=== PATIENT | female | born 1955 | race Caucasian/White ===

== ENCOUNTER 2022-07-24 07:10 | Outpatient (CLI) | payer MEDICARE, SELFPAY ==
[2022-07-24 07:31] LABS: Hematocrit 35.3 % (37.0-47.0); Hemoglobin 11.6 g/dL (12.0-15.0)
[2022-07-24 07:48] LABS: Albumin Level 4.1 g/dL (3.5-5.1); Estimated Glomerular Filt Rate > 60
--- NOTE | 2022-07-24 08:24 | ECG_ITS ---
Measurements Intervals [place] Rate: 52 P: 30 MI: 132 QRS: 7 QRSD: 84 T: 40 QT: 483 QTc: 453 Interpretive Statements SINUS BRADYCARDIA BASELINE ARTIFACT- I, II, III, AVR, AVL, AVF BORDERLINE ECG NO PREVIOUS ECG AVAILABLE FOR COMPARISON Electronically Signed On 07-24-2022 9:45:27 CAR ESCORT by Marciano López D.O.
== END 2022-07-24 07:11 | disposition home or self-care (01) ==
LOC: ANHLAB 07:14
PROVIDERS: PCP Family Medicine; Visit Provider Orthopaedic Surgery
DX: M17.12 Unilateral primary osteoarthritis, left knee (principal); Z86.79 Personal history of other diseases of the circulatory system; E03.9 Hypothyroidism, unspecified; Z86.69 Personal history of other diseases of the nervous system and sense organs; R00.1 Bradycardia, unspecified
CPT/HCPCS: 36415; 82040; 82565; 85014; 85018; 93005

== ENCOUNTER 2022-07-31 17:21 | Outpatient (CLI) | payer MEDICARE, SELFPAY ==
--- NOTE | ~2022-07-31 | CT_ITS ---
EXAMINATION: CT LE LT wo con DATE: 07/31/2022 17:53 INDICATION: Left knee osteoarthritis for preoperative planning. TECHNIQUE: High resolution computed tomography (CT) of the left lower extremity from the hip through the ankle was performed without intravenous contrast. Additional sagittal and coronal reconstructions were performed. Automated exposure control and iterative reconstruction technique were employed. The dose-length product was 1755.52 mGy-cm. COMPARISON: None FINDINGS: Mild hallux valgus with mild hypertrophic and cystic change at the medial head of the first metatarsa l consistent with bunion formation. Bone alignment is otherwise normal. No fracture. Tricompartmental osteoarthritis at the left knee with moderate size marginal osteophytes in all 3 compartments. There is moderate joint space narrowing in the medial and patellofemoral compartments although joint space narrowing the medial lateral compartments could be underestimated on nonweightbearing imaging. Intra osseous ganglion cyst at the tibia the posterior aspect of the intercondylar notch near the site of t he footplate of the posterior cruciate ligament and posterior horn of the medial collateral ligament. No left knee joint effusion. Moderate-sized Jacobs's cyst. Small enthesophytes along the proximal and distal poles of the patella. Additional osteoarthritis, mild at the left hip and at multiple joints the mid and forefoot. IMPRESSION: 1. Tricompartmental osteoarthritis of the left knee at least moderate severity in the medial and smyth llofemoral compartments but which could be underestimated on nonweightbearing imaging. Reviewed, dictated and finalized at location A. [facility] IMPRESSION: 1. Tricompartmental osteoarthritis of the left knee at least moderate severity in the medial and patellofemoral compartments but which could be underestimated on nonweightbearing imaging.
== END 2022-07-31 17:22 | disposition home or self-care (01) ==
PROVIDERS: PCP Family Medicine; Visit Provider Orthopaedic Surgery
DX: M17.12 Unilateral primary osteoarthritis, left knee (principal)
CPT/HCPCS: 73700

== ENCOUNTER 2022-08-01 01:26 | Day surgery (SDC) | payer MEDICARE, SELFPAY ==
--- NOTE | 2022-07-30 12:08 | PM.IMHP ---
H&P: HPI History of Present Illness Date/Time: 07/30/22 12:08 Chief Complaint: Left labial abscess Narrative: A 67-year-old female was admitted for removal of left labial abscess. And drained it and it did not improve it has continued to cause her discomfort so she is admitted for removal. Risks and benefits reviewed [facility] Past Medical History Medical History History of hypertension History of sleep apnea Hypothyroidism Surgical History Surgical History History of arthroscopy of left knee (~1974) History of cholecystectomy (~2004) Family History Family History Other Arthritis Carcinoma of colon Pancreatic cancer Skin cancer Social History Social History Smoking status: Never smoker Alcohol intake: current Alcohol use details: 2x/ month Substance use: never Lack of Transportation: No Lack of Food: Never True Current Housing: I Have Housing Concerned About Future Housing: No Difficulty Paying Gas/Electric Bills: No Difficulty Paying for Meds: No Currently Unemployed: No Education: Master's Degree or Higher Difficulty w/ Childcare or Family Care: No Meds Home Medications and Allergies Home Medications Medication Instructions Recorded Confirmed Type bupropion HCl 75 mg tablet 75 mg PO BID 08/07/21 07/23/22 History levothyroxine 13 mcg capsule 13 mcg PO DAILY 08/07/21 07/23/22 History lisinopril 5 mg tablet 5 mg PO DAILY 08/07/21 07/23/22 History metoprolol succinate 25 mg 12.5 mg PO DAILY 08/07/21 07/23/22 History tablet,extended release 24 hr Allergies Allergy/AdvReac Type Severity Reaction Status Date / Time Sulfa (Sulfonamide Allergy Mild unknown Verified 07/23/22 10:25 Antibiotics) Penicillins Allergy Unknown Unknown Verified 07/23/22 10:25 Exam Const: General: cooperative, healthy appearing, comfortable and well groomed Orientation/consciousness: oriented to person, oriented to place and oriented to time HENMT: Head: normal to inspection Resp: Effort & Inspection: normal respiratory effort Cardio: Rate: regular rate Rhythm: regular rhythm Heart sounds: S1 normal heart sound present and S2 normal heart sound present GI: Inspection: normal to inspection Auscultation: normal bowel sounds : External Female Exam: normal external appearance (Left labia with a 1cm abscess) Speculum Exam - Vagina: normal appearance of the vagina Speculum Exam - Cervix: normal appearance of the cervix Bimanual exam- vagina & uterus: normal bimanual exam Assessment and Plan Assessment and plan (1) Labial abscess: Code(s): N76.4 - Abscess of vulva Status: Acute Plan Resection of left labial abscess
--- NOTE | 2022-07-30 13:39 | PC.NURSE ---
Report to the Outpatient Waiting Room, entrance under the green pavilion located off [facility], at time _1115 on date __08/01/22 . Planned Procedure Time: __1315 . Time changes happen often and if your time is changed the preop area will call you the afternoon before. - You and your visitor will be asked to self-screen and do not enter if you have any COVID symptoms. - Only one visitor is requested with a max of two and NO children visitors are allowed at this time. - The patient visitor may be requested to leave or wait in car when not with patient due to distancing restrictions. - A mask is optional within the hospital at this time. Patients may have clear liquids (water, carbonated beverages, clear teas, apple juice) until 3 hours prior to surgery with a maximum of 20 ounces. - No food from midnight until time of surgery - Infants may have breast milk until 4 hours before surgery, formula 6 hours prior to surgery. - Children will be allowed to drink immediately following surgery. If applicable, please bring a bottle or sippy cup to assist with drinking. Juice, water, soda, and popsicles are readily available. For infants on formula, please bring formula the day of surgery. Pacifiers are allowed. Take the following medications with a SIP of water the morning of surgery: ___BUPROPION,LEVOTHYROXINE,METOPROLOL DO NOT STOP ANY OF YOUR OTHER PRESCRIPTION MEDICATIONS PRIOR TO SURGERY ?EXCEPT THE FOLLOWING Medications to discontinue per physician NONE Date to take last dose Please no make-up, nail faroese, hairspray, perfume, deodorant, or body powder the day of surgery. No jewelry (including any body piercings) or valuables the day of surgery, leave them at home. Please take a shower or bath the night before, or the morning of, surgery with an antibacterial soap. Wear comfortable, loose fitting clothing. Children are encouraged to wear pajamas. - Jewelry must be removed prior to entering the operating room. Rings and piercings that are not removed may be cut off. - The hospital will not accept responsibility for valuables. - Please leave all valuables, including medications, at home the day of surgery. If you are going home after surgery, a licensed class b driver must drive you home. - NO public transportation without another adult if you receive anesthesia. - We recommend that an adult stay with you for 24 hours following discharge. - We also recommend that you do not drive, make important decision, drink alcoholic beverages, or take any drugs that were not prescribed by your health care provider for at least 24 hours after your discharge time. For Pediatric surgeries, we recommend two adults accompany the child home. Follow any additional instructions given to you from your surgeon. If you or anyone in your household have experienced Covid symptoms in the past week, please notify your surgeon or the nurse liaison at the phone number below for possible testing. Telephone instructions given to _PATIENT and asked if any additional questions and then verbalized understanding. Patient advised to call surgeon office or pre surgery nurse liaison [phone] if any additional questions.
[2022-07-30 13:45] VITALS: BMI 27.9
[2022-08-01] VITALS (8 sets, daily range): BP systolic 79–129; BP diastolic 46–76; PULSE 40–64; RESP 12–16; TEMP 36.4–36.9; O2SAT 97–100
--- NOTE | 2022-08-01 07:14 | WPDHPUPDATE1 ---
History and Physical Update Update Date/Time: 08/01/22 07:14 History and Physical has been reviewed, including an updated exam of the patient. There are NO changes in the patient's condition. Risks, benefits, and alternatives have been discussed and questions answered. Patient agrees to proceed with procedure.
--- NOTE | 2022-08-01 10:41 | P.PNAN_ITS ---
Anes - Initial Pre Proc Eval Procedure: Operation Date: 08/01/22 12:15 Proposed Procedures p Resection of Labial Abscess - Benito Vasquez MD Date/Time: 08/01/22 10:41 Surgeon: Benito Vasquez MD Pre Op Diagnosis: Left Labial Abcess Patient Data Age: 67 Gender: F Height: 1.65 m Weight: 76.25 kg Allergies Allergy/AdvReac Type Severity Reaction Status Date / Time Sulfa (Sulfonamide Allergy Mild Rash Verified 07/30/22 13:26 Antibiotics) Penicillins Allergy Unknown Rash Verified 07/30/22 13:26 Home Medications Medication Instructions Recorded Confirmed Type bupropion HCl 150 mg 24 hr tablet, 150 mg PO DAILY 07/30/22 07/30/22 History extended release levothyroxine 100 mcg tablet 100 mcg PO DAILY 07/30/22 07/30/22 History lisinopril 20 1 tablet PO DAILY 07/30/22 07/30/22 History mg-hydrochlorothiazide 25 mg tablet metoprolol succinate 50 mg 50 mg PO DAILY 07/30/22 07/30/22 History tablet,extended release 24 hr hydrocodone 5 mg-acetaminophen 325 1 tablet PO Q4H PRN pain #20 tabs 08/01/22 Rx mg tablet Patient hx anesthesia problems: none Family hx anesthesia problems: none Results Review: All pre-operative results and documents have been reviewed as part of the pre- operative evaluation. [facility] Past Medical History Medical History History of hypertension History of sleep apnea Hypothyroidism Surgical History Surgical History History of arthroscopy of left knee (~1974) History of cholecystectomy (~2004) Family History Family History Other Arthritis Carcinoma of colon Pancreatic cancer Skin cancer Social History Social History Smoking status: Never smoker Alcohol intake: current Alcohol use details: ONE DRINK PER MONTH Substance use: never Lack of Transportation: No Lack of Food: Never True Current Housing: I Have Housing Concerned About Future Housing: No Difficulty Paying Gas/Electric Bills: No Difficulty Paying for Meds: No Currently Unemployed: No Education: Master's Degree or Higher Difficulty w/ Childcare or Family Care: No Living arrangements: alone Spiritual care concerns: No Anes - Eval Final PreProcedure Day of Procedure 08/01/22 10:41 Patient weight: normal Heart: regular rate and rhythm Lungs: clear to auscultation Airway: Mallampati scale class II Neurological: alert and oriented Last oral intake: >/= 8 hours ASA classification: II Emergent: no Anesthetic plan: proceed Anesthesia type and monitoring: general LMA and standard monitoring Results Review: All pre-operative results and documents have been reviewed as part of the pre- operative evaluation. Informed Consent: The patient's anesthetic plan and its attendant risks and benefits were discussed with the patient/family/POA. Questions were solicited and answers provided to the satisfaction of the patient/family/POA.
[2022-08-01] MEDS: ACETAMINOPHEN 500 MG TABLET 1000 MG PO (10:55)
[2022-08-01] MEDS: LACTATED RINGERS 1,000 ML 30 ML IV CONT (10:55)
[2022-08-01 11:08] LABS: Anion Gap 3 mmol/L (8-16); Blood Urea Nitrogen 16 mg/dL (7-17); Carbon Dioxide 28 mmol/L (22-30); Chloride 102 mmol/L (98-107); Estimated CRCL calculation 70 ml/min; Estimated Glomerular Filt Rate > 60; Glucose 92 mg/dL (65-110); Potassium 4.2 mmol/L (3.4-5.0); Sodium 133 mmol/L (137-145)
[2022-08-01] MEDS: LIDOCAINE HCL 1% LOCAL INJ 10 ML VIAL INFILTRATE (11:35)
--- NOTE | 2022-08-01 11:45 | W.PM.PROC2 ---
Procedure Note - Detailed Date of Procedure 08/01/22 Pre-op Diagnosis Left Labial Abcess Post-op Diagnosis Same Procedure Performed Resection of left labial abscess Surgeon Benito Vasquez MD Anesthesia General Indications this is a 67-year-old female with a left labial abscess that has been chronically inflamed Findings left labial abscess about a cm in diameter Description of Procedure patient is prepped draped in normal sterile fashion placed in dorsal lithotomy position under excellent elevate Anesthesia the left labial abscess was grasped and 3cc of lidocaine anesthesia placed below. Circumferential incision made this was taken out in full. The sutures were closed with [id number] to 3 0 Vicryl. Blood loss estimated 5cc all sponge, needle, instrument counts were correct. There were no immediate complications Estimated Blood Loss 5 Drains No Packing No Pathology Yes Complications No immediate complications Condition Stable Disposition PACU
== END 2022-08-01 13:55 | disposition home or self-care (01) ==
PROVIDERS: Anesthesiology; PCP Family Medicine; Visit Provider Obstetrics & Gynecology
PROC: (CPT 56405; principal; 2022-08-01 12:15)
DX: N76.4 Abscess of vulva (principal); I10 Essential (primary) hypertension; E03.9 Hypothyroidism, unspecified; G47.30 Sleep apnea, unspecified
CPT/HCPCS: 56405; 36415; 80048; 88304; A9270; J2250; J2405; J2704; J3010; J7120

== ENCOUNTER 2022-10-29 11:40 | Outpatient (CLI) | payer MEDICARE, SELFPAY ==
[2022-10-29 13:04] LABS: Basophils Absolute Auto 0.1 K/mm3 (0.0-0.1); Basophils Percent Auto 0.6 % (0.2-1.2); Eosinophils Absolute Auto 0.2 K/mm3 (0-0.3); Eosinophils Percent Auto 1.8 % (0-4.4); Hematocrit 36.6 % (37.0-47.0); Hemoglobin 11.9 g/dL (12.0-15.0); Immature Granulocyte Absolute 0.03 K/mm3 (0.00-0.031); Immature Granulocyte Percent A 0.3 % (0-0.5); Lymphocytes Absolute Auto 2.28 K/mm3 (0.9-3.2); Lymphocytes Percent Auto 24.1 % (18.3-44.2); Mean Corpuscular HGB Conc 32.5 g/dl (32-36); Mean Corpuscular Hemoglobin 31.3 pg (26-34); Mean Corpuscular Volume 96.3 fl (80-100); Mean Platelet Volume 10.7 fl (7.4-10.4); Neutrophils Percent Auto 63.2 % (45.5-73.1); Platelet Count Result 255 k/mm3 (150-375); Red Cell Distribution Width 12.4 % (11.5-14.5); White Blood Count 9.5 K/mm3 (4.5-10.0)
[2022-10-29 13:59] LABS: Albumin Level 4.4 g/dL (3.5-5.1)
[2022-10-29 14:03] LABS: Anion Gap 6 mmol/L (8-16); Blood Urea Nitrogen 23 mg/dL (7-17); Carbon Dioxide 32 mmol/L (22-30); Chloride 101 mmol/L (98-107); Estimated Glomerular Filt Rate > 60; Glucose 89 mg/dL (65-110); Sodium 139 mmol/L (137-145)
[2022-10-29 14:07] LABS: Hemoglobin A1C 5.3 % (<5.7)
[2022-10-29 14:38] LABS: Urine Cotinine NEGATIVE
== END 2022-10-29 11:41 | disposition home or self-care (01) ==
LOC: ANHSURGERY 11:45
PROVIDERS: Anesthesiology; PCP Family Medicine; Visit Provider Orthopaedic Surgery
DX: M17.12 Unilateral primary osteoarthritis, left knee (principal); Z51.81 Encounter for therapeutic drug level monitoring; Z01.818 Encounter for other preprocedural examination
CPT/HCPCS: 36415; 80048; 80307; 82040; 83036; 85025; 87081

== ENCOUNTER 2022-11-27 00:02 | Day surgery (SDC) | payer MEDICARE, SELFPAY ==
[2022-10-29 11:58] VITALS: BP 142/80; PULSE 46; RESP 16; TEMP 36.7; O2SAT 100; BMI 28.3
--- NOTE | 2022-10-29 12:09 | PC.NURSE ---
Addendum entered by Mikki Mcnally RN 10/29/22 15:07: INSTRUCT PATIENT TO HOLD ALL NSAIDS(IBUPROFEN) 7 DAYS PRE-OP, LAST DOSE 11/21/22. PT RELAYS UNDERSTANDING. Original Note: Report to the Outpatient Waiting Room, entrance under the green pavilion located off [facility], at time __6:00AM on date __11/27/22 . Planned Procedure Time: ___7:30AM . Time changes happen often and if your time is changed the preop area will call you the afternoon before. - You and your visitor will be asked to self-screen and do not enter if you have any COVID symptoms. - A mask is optional within the hospital at this time. Patients may have clear liquids (water, carbonated beverages, clear teas, apple juice) until 3 hours prior to surgery with a maximum of 20 ounces. - No food from midnight until time of surgery Take the following medications with a SIP of water the morning of surgery: ___BUPROPION, LEVOTHYROXINE, METOPROLOL DO NOT STOP ANY OF YOUR OTHER PRESCRIPTION MEDICATIONS PRIOR TO SURGERY ?EXCEPT THE FOLLOWING Medications to discontinue per physician ____HOLD ALL VITAMINS/SUPPLEMENTS 3 DAYS PRE-OP Date to take last dose___11/23/22 Please no make-up, nail german, hairspray, perfume, deodorant, or body powder the day of surgery. No jewelry (including any body piercings) or valuables the day of surgery, leave them at home. Please take a shower or bath the night before, or the morning of, surgery with an antibacterial soap. Wear comfortable, loose fitting clothing. Children are encouraged to wear pajamas. - Jewelry must be removed prior to entering the operating room. Rings and piercings that are not removed may be cut off. - The hospital will not accept responsibility for valuables. - Please leave all valuables, including medications, at home the day of surgery. If you are going home after surgery, a licensed driver salesman must drive you home. - NO public transportation without another adult if you receive anesthesia. - We recommend that an adult stay with you for 24 hours following discharge. - We also recommend that you do not drive, make important decision, drink alcoholic beverages, or take any drugs that were not prescribed by your health care provider for at least 24 hours after your discharge time. Follow any additional instructions given to you from your surgeon. If you or anyone in your household have experienced Covid symptoms in the past week, please notify your surgeon or the nurse liaison at the phone number below for possible testing. Telephone instructions given to __PATIENT and asked if any additional questions and then verbalized understanding. Patient advised to call surgeon office or pre surgery nurse liaison [phone] if any additional questions.
--- NOTE | 2022-11-26 12:55 | WPDANESEPPF ---
Anes - Initial Pre Proc Eval Procedure: Operation Date: 11/27/22 07:30 Proposed Procedures p Left Custom Total Knee Arthroplasty - Joni Guzman MD Date/Time: 11/26/22 12:55 Surgeon: Joni Guzman MD Pre Op Diagnosis: primary oa left knee Patient Data Age: 67 Gender: F Height: 1.64 m Weight: 76.6 kg Last Vital Signs Temp 36.7 C 10/29/22 11:58 Pulse 46 L 10/29/22 11:58 Resp 16 10/29/22 11:58 BP 142/80 H 10/29/22 11:58 Pulse Ox 100 10/29/22 11:58 O2 Del Method Room Air 10/29/22 11:58 Allergies Allergy/AdvReac Type Severity Reaction Status Date / Time Sulfa (Sulfonamide Allergy Mild Rash Verified 11/27/22 06:21 Antibiotics) Penicillins Allergy Unknown Rash Verified 11/27/22 06:21 cephalexin [From Keflex] Allergy RASH, RED Verified 11/27/22 06:21 FACE Home Medications Medication Instructions Recorded Confirmed Type bupropion HCl 150 mg 24 hr tablet, 150 mg PO QAM 07/30/22 11/27/22 History extended release levothyroxine 100 mcg tablet 100 mcg PO QAM 07/30/22 11/27/22 History lisinopril 20 1 tablet PO QAM 07/30/22 11/27/22 History mg-hydrochlorothiazide 25 mg tablet metoprolol succinate 50 mg 50 mg PO QAM 07/30/22 11/27/22 History tablet,extended release 24 hr acetaminophen 500 mg tablet 1,000 mg PO Q6H PRN Pain 10/29/22 11/27/22 History docusate sodium 100 mg capsule 200 mg PO DAILY PRN Constipation 10/29/22 11/27/22 History ferrous sulfate 142 mg (45 mg 142 mg PO DAILY 10/29/22 11/27/22 History iron) tablet,extended release (Slow Fe) ibuprofen 200 mg capsule 400 mg PO Q6H PRN Pain 10/29/22 11/27/22 History multivitamin 1 tablet PO DAILY 10/29/22 11/27/22 History Patient hx anesthesia problems: none Family hx anesthesia problems: none Results Review: All pre-operative results and documents have been reviewed as part of the pre-operative evaluation. [facility] Past Medical History Medical History (Updated 10/29/22 @ 09:01 by Cely Wiley) Depression Hypertension Hypothyroidism Multinodular goiter Obstructive sleep apnea Primary osteoarthritis of left knee Sore throat Surgical History Surgical History History of arthroscopy of left knee History of arthroscopy of right knee (~10/2014) History of cholecystectomy (04/2013) Family History Family History Other Arthritis Carcinoma of colon Pancreatic cancer Skin cancer Social History Social History Smoking status: Never smoker Alcohol intake: current Drinks per week: 2 Alcohol use details: ONE DRINK PER MONTH Substance use: never Lack of Transportation: No Lack of Food: Never True Current Housing: I Have Housing Concerned About Future Housing: No Difficulty Paying Gas/Electric Bills: No Difficulty Paying for Meds: No Currently Unemployed: No Education: Master's Degree or Higher Difficulty w/ Childcare or Family Care: No Living arrangements: alone Gender identity (if verbalized by the patient): Female Sexual Orientation (if Verbalized by the Patient): Straight or Heterosexual Spiritual care concerns: No Anes - Eval Final PreProcedure Day of Procedure 11/26/22 12:55 Patient weight: overweight Heart: regular rate and rhythm Lungs: clear to auscultation Airway: Mallampati scale class II Neurological: alert and oriented Last oral intake: >/= 8 hours ASA classification: III Emergent: no Anesthetic plan: proceed Anesthesia type and monitoring: general LMA and standard monitoring Results Review: All pre-operative results and documents have been reviewed as part of the pre-operative evaluation. Informed Consent: The patient's anesthetic plan and its attendant risks and benefits were discussed with the patient/family/POA. Questions were solicited and answers provided
[2022-11-27] VITALS (13 sets, daily range): BP systolic 108–151; BP diastolic 54–85; PULSE 50–83; RESP 12–20; TEMP 36.4–37; O2SAT 95–100
--- NOTE | ~2022-11-27 | XR_ITS ---
EXAMINATION: [id number] DATE: 11/27/2022 10:28 INDICATION: Left knee arthroplasty. Postop. TECHNIQUE: 2 views of left knee were obtained. COMPARISON: None. FINDINGS: There is a total left knee arthroplasty with patellar resurfacing in near-anatomic alignmen t. No fracture. There is gas in the knee joint and soft tissues, consistent with recent surgery. IMPRESSION: 1. Total left knee arthroplasty in near-anatomic alignment. Reviewed, dictated and finalized at location A.
[2022-11-27] MEDS: ACETAMINOPHEN 500 MG TABLET 1000 MG PO (06:27)
[2022-11-27] MEDS: LACTATED RINGERS 1,000 ML 30 ML IV CONT ×2 (06:36→10:07)
[2022-11-27] MEDS: TRANEXAMIC ACID 1,000MG/ISO100 1,000 MG/100 ML BAG 200 MG IVPB (07:03)
--- NOTE | 2022-11-27 07:15 | WPDHPUPDATE1 ---
History and Physical Update Update Date/Time: 11/27/22 07:15 History and Physical has been reviewed, including an updated exam of the patient. There are NO changes in the patient's condition. Risks, benefits, and alternatives have been discussed and questions answered. Patient agrees to proceed with procedure.
--- NOTE | 2022-11-27 07:32 | WPDANESPNB ---
Anes - Peripheral Nerve Block Date/Time: 11/27/22 07:32 I have discussed with the patient/family/POA the placement of a peripheral nerve block for post-operative pain management, including associated risks, benefits, complications, and side effects. Alternative methods of post-operative analgesia were detailed. Questions were solicited and answers provided to the satisfaction of the patient/family/POA. Time-Out: A pre-procedural Time-Out was completed immediately before starting the procedure and confirmed: Patient Identification, Site, Procedure, Patient Position and the Availability of Requisite Equipment. Clinical Indications: Acute post-operative pain management requested by the operative surgeon. Nerve Block Insertion Note Anes-nerve block: adductor canal left Patient position: supine Skin prep: chlorhexidine Needle: 22 gauge, stimulating, insulated echogenic needle. Needle length: 80 mm Technique: ultrasound Injectate: bupivacaine 0.5% with epi 5 mcg/ml (30cc - no epi) Observations: tolerated well Complications: none Procedure start time:: 723 Procedure end time:: 728
[2022-11-27] MEDS: CLINDAMYCIN 900 MG/D5W 50 ML 900 MG/50 ML PIGGYBACK 50 MG IVPB (07:36)
[2022-11-27] MEDS: GENTAMICIN BONE CEMENT REFOBACIN 1 EACH TOPICAL (08:18)
--- NOTE | 2022-11-27 10:55 | P.OP_ITS ---
Procedure Note - Detailed Date of Procedure 11/27/22 Pre-op Diagnosis primary oa left knee Post-op Diagnosis Same Procedure Performed Total knee arthroplasty, left knee. Surgeon Joni Guzman MD Anesthesia General and Regional (Subsartorial block.) Description of Procedure Preoperative antibiotics were given. The limb was prepped and draped in the usual sterile fashion with a well-padded tourniquet high on the thigh. The limb was exsanguinated and the tourniquet inflated to 300 mmHg. A longitudinal i ncision was created just medial to the patella. A trivector approach to the knee was performed. Arthrotomy was taken down through the joint capsule. No significant releases were initially taken. The femur was exposed and the F1 jig was applied. The coring tool was used to remove the cartilage for the F2 jig to sit flush with the bone. The jig was pinned and the distal cut carefully taken. Caliper measurements confirmed appropriate bony resections according to the preoperative templated plan. The F4 cutting jig for the femur was applied, at the standard rotation. The AP and anterior chamfer cuts were taken. The F5 jig was applied and the posterior chamfer cuts were taken. The tibia was prepared using the T1 jig, after removing cartilage for the jig contact points. Proper alignment was checked with the alignment gonzales. The tibia was cut using the T1u guide. Gap balancing was performed. Gap measurements were taken and the knee was trialed. Excellent alignment and soft tissue balancing was confirmed. The posterior cruciate ligament was recessed along the proximal tibia. The patella was cut for resurfacing. Three lug holes were drilled. Meniscal remnants were removed. The trial components were assembled. Excellent range of motion and proper soft tissue balancing were confirmed throughout the full range of motion. Patellar tracking was excellent. The knee was copiously irrigated periodically throughout the procedure. The real implants were cemented into position. Excess cement was carefully removed. The wound was closed in layers with interrupted #1 Vicryl suture, #2 strata fix suture, 2-0 strata fix suture, 3-0 strata fix suture. Steri-Strips placed on the skin with the knee flexed. Sterile bulky dressing applied. The patient was brought to the recovery room in stable condition. There were no complications. Implants [employer]form[employer] Im[employer] total knee arthroplasty. Cemented. Cruciate retaining. 6 mm in sert. 35 mm round patella. Estimated Blood Loss -50.0 Tourniquet Time 84 Drains No Complications No immediate complications Condition Stable Disposition PACU [facility] Billing Surgery - Charge Forward: Surgery Billing
--- NOTE | 2022-11-27 11:49 | ADMGEN ---
This patient, Anirudh Castro, was admitted to Medical Room 252-01. Patient/family oriented to hospital policies and general routines including ID bracelet, bed and alarms, visiting hours, pain management, procedures, bathroom and other care routines, personal items, smoking policy, room service/diet, and visiting hours. Information on how to activate the Rapid Response Team has been discussed. Patient/Family are encouraged to report perceived risks to care and to ask questions if they do not understand what they are told or what they should do.
[2022-11-27] MEDS: SODIUM CHLORIDE 0.9% IV 1,000 ML 125 ML IV CONT (13:34)
[2022-11-27] MEDS: lisinopriL 20 MG TABLET PO (13:35)
[2022-11-27] MEDS: hydroCHLOROthiazide 25 MG TABLET PO (13:35)
--- NOTE | 2022-11-27 16:39 | PCPTNOTE ---
On 11/27/22, the student, [Ifrah Roberts], provided care and completed [facility]. I have reviewed the student's documentation and agree with the findings.
[2022-11-27] MEDS: BENZOCAINE/MENTHOL (*BKC) 18 EA LOZENGE 1 LOZENGE PO (16:59)
[2022-11-27] MEDS: ASPIRIN 81 MG ENTERIC TABLET PO (17:02)
[2022-11-27] MEDS: MELOXICAM 7.5 MG TABLET PO (17:02)
[2022-11-27] MEDS: CLINDAMYCIN 600 MG/D5W 50 ML 600 MG/50 ML PIGGYBACK 100 MG IVPB ×2 (17:03→23:17)
[2022-11-27] MEDS: SENNA/DOCUSATE SODIUM TABLET 2 TAB PO (17:04)
[2022-11-27] MEDS: oxyCODONE HCL (*CRX) 5 MG TAB IR PO (20:30)
[2022-11-28 00:18] VITALS: BP 113/53; PULSE 50; RESP 18; TEMP 35.9; O2SAT 100
[2022-11-28 03:00] VITALS: PULSE 55; RESP 15; O2SAT 97
[2022-11-28 04:48] VITALS: BP 109/53; PULSE 54; RESP 20; TEMP 36.6; O2SAT 100
[2022-11-28] MEDS: oxyCODONE HCL (*CRX) 5 MG TAB IR PO (05:04)
[2022-11-28 05:17] LABS: Basophils Percent Auto 0.3 % (0.2-1.2); Eosinophils Percent Auto 0.1 % (0-4.4); Hematocrit 30.8 % (37.0-47.0); Hemoglobin 10.1 g/dL (12.0-15.0); Immature Granulocyte Absolute 0.09 K/mm3 (0.00-0.031); Immature Granulocyte Percent A 0.6 % (0-0.5); Lymphocytes Absolute Auto 2.19 K/mm3 (0.9-3.2); Lymphocytes Percent Auto 14.1 % (18.3-44.2); Mean Corpuscular HGB Conc 32.8 g/dl (32-36); Mean Corpuscular Hemoglobin 31.8 pg (26-34); Mean Corpuscular Volume 96.9 fl (80-100); Mean Platelet Volume 10.6 fl (7.4-10.4); Monocytes Absolute Auto 1.7 K/mm3 (0.1-0.6); Neutrophils Absolute Auto 11.5 K/mm3 (1.3-6.7); Neutrophils Percent Auto 73.9 % (45.5-73.1); Platelet Count Result 218 k/mm3 (150-375); Red Blood Count 3.18 M/mm3 (4.2-5.4); Red Cell Distribution Width 12.7 % (11.5-14.5); White Blood Count 15.5 K/mm3 (4.5-10.0)
[2022-11-28 05:28] LABS: Anion Gap 5 mmol/L (8-16); Blood Urea Nitrogen 26 mg/dL (7-17); Calcium 8.6 mg/dL (8.4-10.2); Carbon Dioxide 31 mmol/L (22-30); Chloride 98 mmol/L (98-107); Estimated CRCL calculation 55 ml/min; Estimated Glomerular Filt Rate > 60; Glucose 98 mg/dL (65-110); Potassium 4.1 mmol/L (3.4-5.0); Sodium 134 mmol/L (137-145)
[2022-11-28] MEDS: LEVOTHYROXINE SODIUM 100 MCG TABLET PO (06:18)
[2022-11-28] MEDS: ASPIRIN 81 MG ENTERIC TABLET PO (08:04)
[2022-11-28] MEDS: SENNA/DOCUSATE SODIUM TABLET 2 TAB PO (08:04)
[2022-11-28] MEDS: MELOXICAM 7.5 MG TABLET PO (08:04)
[2022-11-28] MEDS: predniSONE 5 MG TABLET PO (08:04)
[2022-11-28] MEDS: FERROUS SULFATE DRIED 142 MG TABCR PO (08:04)
[2022-11-28] MEDS: buPROPion HCL XL (24 HR) 150 MG TABCR PO (08:04)
[2022-11-28] MEDS: lisinopriL 20 MG TABLET PO (08:04)
[2022-11-28] MEDS: hydroCHLOROthiazide 25 MG TABLET PO (08:04)
[2022-11-28 08:05] VITALS: PULSE 75
[2022-11-28] MEDS: METOPROLOL SUCCINATE EXT REL 50 MG TABCR PO (08:05)
[2022-11-28] MEDS: MULTIVITAMINS THERAPEUTIC TAB (*BKC) 1 TABLET PO (08:05)
[2022-11-28] MEDS: CLINDAMYCIN 600 MG/D5W 50 ML 600 MG/50 ML PIGGYBACK 100 MG IVPB (08:06)
[2022-11-28] MEDS: polyethylene glycoL 3350 17 GM POWD.PACK PO (08:06)
--- NOTE | 2022-11-28 09:08 | P.PNAN_ITS ---
Anes - Prog Note Post-Op Date/Time: 11/28/22 09:08 Cardiovascular status: normal Respiratory status: normal Airway patency: baseline Mental status: baseline Post-Op hydration status: normal Vital Signs: Last Vital Signs Temp 97.8 F 11/28/22 04:48 Pulse 75 11/28/22 08:05 Resp 20 11/28/22 04:48 BP 109/53 L 11/28/22 04:48 Pulse Ox 100 11/28/22 04:48 O2 Del Method Autopap 11/28/22 03:00 O2 Flow Rate 8 11/27/22 10:20 Pain Score (VAS): 0/10 I/O: Intake & Output 11/27/22 11/28/22 11/28/22 23:59 07:59 15:59 Intake Total 340 Balance 340 Laboratory Tests 11/28/22 05:09 11/28/22 05:09 11/28/22 05:09 WBC 15.5 H RBC 3.18 L Hgb 10.1 L Hct 30.8 L MCV 96.9 MCH 31.8 MCHC 32.8 RDW 12.7 Plt Count 218 MPV 10.6 H Immature Gran % (Auto) 0.6 H Neut % (Auto) 73.9 H Lymph % (Auto) 14.1 L [place] % (Auto) 11.0 H Eos % (Auto) 0.1 Baso % (Auto) 0.3 Lymph # (Auto) 2.19 [place] # (Auto) 1.7 H Eos # (Auto) 0.0 Baso # (Auto) 0.0 Abs Immat Gran (auto) 0.09 H Absolute Neuts (auto) 11.5 H Absolute Nucleated RBC 0.0 Nucleated RBC % 0.0 Sodium 134 L Potassium 4.1 Chloride 98 Carbon Dioxide 31 H Anion Gap 5 L BUN 26 H Creatinine 0.90 Estim Creat Clear Calc 55 Estimated GFR > 60 Glucose 98 Calcium 8.6 Post-procedural complaints: none Patient Feedback: Patient satisfied with anesthetic care.
[2022-11-28] MEDS: oxyCODONE HCL (*CRX) 5 MG TAB IR 10 MG PO ×2 (09:41→13:35)
--- NOTE | 2022-11-28 10:12 | PM.DS ---
DS: Admitting Diagnosis Discharge Date 11/28/22 Admitting Diagnosis Left knee arthritis. DS: Discharge Diagnosis Discharge Diagnosis (1) Status post total knee replacement, left: Code(s): Z96.652 - Presence of left artificial knee joint Status: Acute DS: Summary Hospital Course Reason for hospitalization: Total knee arthroplasty. Hospital Course: Tolerated surgery well. Progressed appropriately with therapy. Status at Discharge Functional status at discharge: uses cane/walker Overall status at discharge: patient is progressing back to baseline Time Spent with Patient Time attestation: Total time spent providing and/or coordinating discharge services: Exam Const: General: no acute distress Resp: Effort & Inspection: normal respiratory effort Skin: Other: Wound healing well. Mepilex dressing intact. No hematoma or drainage. Neuro: Motor exam (neuro): 5/5 motor strength present throughout Sensory Exam: normal sensation Psych: Mental Status: mental status grossly normal Speech and movement: Normal speech and movement present DS: Data Data Completed and Pending Labs on day of discharge: Labs from last 24 hours 11/28/22 05:09 WBC 15.5 H RBC 3.18 L Hgb 10.1 L Hct 30.8 L MCV 96.9 MCH 31.8 MCHC 32.8 RDW 12.7 Plt Count 218 MPV 10.6 H Immature Gran % (Auto) 0.6 H Neut % (Auto) 73.9 H Lymph % (Auto) 14.1 L [place] % (Auto) 11.0 H Eos % (Auto) 0.1 Baso % (Auto) 0.3 Lymph # (Auto) 2.19 [place] # (Auto) 1.7 H Eos # (Auto) 0.0 Baso # (Auto) 0.0 Abs Immat Gran (auto) 0.09 H Absolute Neuts (auto) 11.5 H Absolute Nucleated RBC 0.0 Nucleated RBC % 0.0 Sodium 134 L Potassium 4.1 Chloride 98 Carbon Dioxide 31 H Anion Gap 5 L BUN 26 H Creatinine 0.90 Estim Creat Clear Calc 55 Estimated GFR > 60 Glucose 98 Calcium 8.6 Discharge Plan Discharge Patient Disposition: Home, Self-Care Discharge Instructions: See instruction sheet. Stand Alone Forms: General Discharge Instructions Follow-up/Referrals: Joni Guzman MD [Physician] - Discharge Medications: New aspirin [Enteric Coated Aspirin] 81 mg tablet,delayed release (DR/EC) 81 mg PO DAILY Qty: 28 0RF meloxicam 7.5 mg tablet 7.5 mg PO .twice daily Qty: 60 0RF oxycodone-acetaminophen 5-325 mg tablet 1 - 2 tablet PO Q6H MDD 6 tablets PRN (Reason: pain) Qty: 30 0RF prednisone 5 mg tablet 5 mg PO DAILY Qty: 10 0RF Continued multivitamin Tablet 1 tablet PO DAILY lisinopril-hydrochlorothiazide 20-25 mg tablet 1 tablet PO QAM metoprolol succinate 50 mg tablet extended release 24 hr 50 mg PO QAM bupropion HCl 150 mg tablet extended release 24 hr 150 mg PO QAM levothyroxine 100 mcg tablet 100 mcg PO QAM docusate sodium 100 mg Capsule 200 mg PO DAILY PRN (Reason: Constipation) Slow Fe 142 mg (45 mg iron) Tablet Extended Release 142 mg PO DAILY acetaminophen 500 mg Tablet 1,000 mg PO Q6H PRN (Reason: Pain) Discontinued ibuprofen 200 mg Capsule 400 mg PO Q6H PRN (Reason: Pain) Quality VTE Prophylaxis VTE prophylaxis: mechanical ordered (ELLE sethi and Karly)
[2022-11-28 10:15] VITALS: BP 118/58; PULSE 65; RESP 16; TEMP 37.3; O2SAT 100
--- NOTE | 2022-11-28 12:14 | PCCCNOTE ---
On 11/28/22, the student, [Guillermina Barajas ], provided care and completed [facility] documentation on this patient. I have reviewed the student's documentation and agree with the findings.
== END 2022-11-28 13:48 | disposition home or self-care (01) ==
LOC: ANHSURGERY 06:03 → ANH2MED 11:41
PROVIDERS: PCP Family Medicine; Visit Provider Orthopaedic Surgery
PROC: (CPT 27447; principal; 2022-11-27 07:30)
DX: M17.12 Unilateral primary osteoarthritis, left knee (principal); G89.18 Other acute postprocedural pain; I10 Essential (primary) hypertension; E03.9 Hypothyroidism, unspecified; G47.33 Obstructive sleep apnea (adult) (pediatric); F32.A Depression, unspecified
CPT/HCPCS: 27447; 64447; 36415; 73560; 80048; 85025; 86850; 86900; 86901; 97110; 97116; 97161; 97165; 97530; 97535; A9270; C1713; C1776; J0171; J1100; J1170; J1885; J2250; J2270; J2371; J2405; J2704; J2795; J3010; J3370; J7030; J7120; J7512

== ENCOUNTER 2023-03-17 07:00 | Outpatient (CLI) | payer MEDICARE, SELFPAY ==
[2023-03-17 07:32] LABS: Hematocrit 37.4 % (37.0-47.0)
[2023-03-17 07:44] LABS: Anion Gap 4 mmol/L (8-16); Blood Urea Nitrogen 22 mg/dL (7-17); Calcium 9.2 mg/dL (8.4-10.2); Carbon Dioxide 33 mmol/L (22-30); Chloride 101 mmol/L (98-107); Estimated Glomerular Filt Rate > 60; Glucose 92 mg/dL (65-110); Potassium 4.4 mmol/L (3.4-5.0); Sodium 138 mmol/L (137-145)
== END 2023-03-17 07:01 | disposition home or self-care (01) ==
LOC: ANHSURGERY 07:06
PROVIDERS: Anesthesiology; PCP Family Medicine; Visit Provider Obstetrics & Gynecology
DX: D64.9 Anemia, unspecified (principal); Z79.899 Other long term (current) drug therapy; Z01.818 Encounter for other preprocedural examination
CPT/HCPCS: 36415; 80048; 85014; 85018

== ENCOUNTER 2023-03-20 01:43 | Day surgery (SDC) | payer MEDICARE, SELFPAY ==
[2023-03-16 14:14] VITALS: BMI 25.8
--- NOTE | 2023-03-16 14:20 | PC.NURSE ---
Report to the Outpatient Waiting Room, entrance under the green pavilion located off [facility], at time _1130_ on date _[id number]_. Planned Procedure Time: _130pm_. Time changes happen often and if your time is changed the preop area will call you the afternoon before. - You and your visitor will be asked to self-screen and do not enter if you have any COVID symptoms. - A mask is optional within the hospital at this time. Patients may have clear liquids (water, carbonated beverages, clear teas, apple juice) until 3 hours prior to surgery with a maximum of 20 ounces. - No food from midnight until time of surgery Take the following medications with a SIP of water the morning of surgery: ___Bupropion, Levothyroxine and Metoprolol DO NOT STOP ANY OF YOUR OTHER PRESCRIPTION MEDICATIONS PRIOR TO SURGERY ?EXCEPT THE FOLLOWING Medications to discontinue per physician Multivitamin and Iron Date to take last dose__Stop today till after surgery. Please no make-up, nail welsh, hairspray, perfume, deodorant, or body powder the day of surgery. No jewelry (including any body piercings) or valuables the day of surgery, leave them at home. Please take a shower or bath the night before, or the morning of, surgery with an antibacterial soap. Wear comfortable, loose fitting clothing. - Jewelry must be removed prior to entering the operating room. Rings and piercings that are not removed may be cut off. - The hospital will not accept responsibility for valuables. - Please leave all valuables, including medications, at home the day of surgery. If you are going home after surgery, a licensed cab driver must drive you home. - NO public transportation without another adult if you receive anesthesia. - We recommend that an adult stay with you for 24 hours following discharge. - We also recommend that you do not drive, make important decision, drink alcoholic beverages, or take any drugs that were not prescribed by your health care provider for at least 24 hours after your discharge time. Follow any additional instructions given to you from your surgeon. If you or anyone in your household have experienced Covid symptoms in the past week, please notify your surgeon or the nurse liaison at the phone number below for possible testing. Telephone instructions given to _Nathanno_and asked if any additional questions and then verbalized understanding. Patient advised to call surgeon office or pre surgery nurse liaison [phone] if any additional questions.
--- NOTE | 2023-03-18 12:43 | PM.IMHP ---
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 She has been treated with antibiotics is now sterile and she will undergo drainage and possible marsupialization PMFSH Past Medical History Medical History Depression Hypertension Hypothyroidism Multinodular goiter Obstructive sleep apnea Primary osteoarthritis of left knee Sore throat Surgical History Surgical History History of arthroscopy of left knee History of arthroscopy of right knee (~10/2014) History of cholecystectomy (04/2013) Status post total knee replacement, left (~11/27/22) Family History Family History Other Arthritis Carcinoma of colon Pancreatic cancer Skin cancer Social History Social History Smoking status: Never smoker Alcohol intake: current Drinks per week: 2 Alcohol use details: ONE DRINK PER MONTH Substance use: never Lack of Transportation: No Lack of Food: Never True Current Housing: I Have Housing Concerned About Future Housing: No Difficulty Paying Gas/Electric Bills: No Difficulty Paying for Meds: No Currently Unemployed: No Education: Master's Degree or Higher Difficulty w/ Childcare or Family Care: No Living arrangements: with family Gender identity (if verbalized by the patient): Female Sexual Orientation (if Verbalized by the Patient): Straight or Heterosexual Spiritual care concerns: No Meds Home Medications and Allergies Home Medications Medication Instructions Recorded Confirmed Type bupropion HCl 150 mg 24 hr tablet, 150 mg PO QAM 07/30/22 03/16/23 History extended release levothyroxine 100 mcg tablet 100 mcg PO QAM 07/30/22 03/16/23 History lisinopril 20 1 tablet PO QAM 07/30/22 03/16/23 History mg-hydrochlorothiazide 25 mg tablet metoprolol succinate 50 mg 50 mg PO QAM 07/30/22 03/16/23 History tablet,extended release 24 hr acetaminophen 500 mg tablet 1,000 mg PO Q6H PRN Pain 10/29/22 03/16/23 History docusate sodium 100 mg capsule 200 mg PO DAILY PRN Constipation 10/29/22 03/16/23 History ferrous sulfate 142 mg (45 mg 142 mg PO DAILY 10/29/22 03/16/23 History iron) tablet,extended release (Slow Fe) multivitamin 1 tablet PO DAILY 10/29/22 03/16/23 History Allergies Allergy/AdvReac Type Severity Reaction Status Date / Time cephalexin [From Keflex] Allergy Severe RASH, RED Verified 03/16/23 14:11 FACE Sulfa (Sulfonamide Allergy Mild Rash Verified 03/16/23 14:11 Antibiotics) Penicillins Allergy Unknown Rash Verified 03/16/23 14:11 Exam Const: General: cooperative, healthy appearing and comfortable Nutritional Appearance: average body habitus Orientation/consciousness: oriented to person, oriented to place and oriented to time Resp: Effort & Inspection: normal respiratory effort Cardio: Rate: regular rate Rhythm: regular rhythm Heart sounds: S1 normal heart sound present and S2 normal heart sound present GI: Inspection: normal to inspection : External Female Exam: normal external appearance (Moderate sized Bartholin cyst on the left) Speculum Exam - Vagina: normal appearance of the vagina Speculum Exam - Cervix: normal appearance of the cervix Bimanual exam- vagina & uterus: uterine size normal Bimanual Exam- Adnexa, other: normal adnexae Assessment and Plan Assessment and plan (1) Bartholin cyst: Code(s): N75.0 - Cyst of Bartholin's gland Status: Acute Plan Excision and possible marsupialization of Bartholin cyst
[2023-03-20] VITALS (8 sets, daily range): BP systolic 92–144; BP diastolic 58–78; PULSE 48–77; RESP 13–17; TEMP 36.6–36.7; O2SAT 99–100; BMI 25.4
--- NOTE | 2023-03-20 06:18 | WPDHPUPDATE1 ---
History and Physical Update Update Date/Time: 03/20/23 06:18 History and Physical has been reviewed, including an updated exam of the patient. There are NO changes in the patient's condition. Risks, benefits, and alternatives have been discussed and questions answered. Patient agrees to proceed with procedure.
[2023-03-20] MEDS: LACTATED RINGERS 1,000 ML 30 ML IV CONT (12:05)
--- NOTE | 2023-03-20 12:10 | WPDANESEPPF ---
Anes - Initial Pre Proc Eval Procedure: Operation Date: 03/20/23 13:30 Proposed Procedures p Marsupialization Bartholin's Left Gland Cyst - Benito Vasquez MD Date/Time: 03/20/23 12:10 Surgeon: Benito Vasquez MD Pre Op Diagnosis: bartholin cyst Patient Data Age: 68 Gender: F Height: 1.68 m Weight: 71.6 kg Allergies Allergy/AdvReac Type Severity Reaction Status Date / Time cephalexin [From Keflex] Allergy Severe RASH, RED Verified 03/16/23 14:11 FACE Sulfa (Sulfonamide Allergy Mild Rash Verified 03/16/23 14:11 Antibiotics) Penicillins Allergy Unknown Rash Verified 03/16/23 14:11 Home Medications Medication Instructions Recorded Confirmed Type bupropion HCl 150 mg 24 hr tablet, 150 mg PO QAM 07/30/22 03/16/23 History extended release levothyroxine 100 mcg tablet 100 mcg PO QAM 07/30/22 03/16/23 History lisinopril 20 1 tablet PO QAM 07/30/22 03/16/23 History mg-hydrochlorothiazide 25 mg tablet metoprolol succinate 50 mg 50 mg PO QAM 07/30/22 03/16/23 History tablet,extended release 24 hr acetaminophen 500 mg tablet 1,000 mg PO Q6H PRN Pain 10/29/22 03/16/23 History docusate sodium 100 mg capsule 200 mg PO DAILY PRN Constipation 10/29/22 03/16/23 History ferrous sulfate 142 mg (45 mg 142 mg PO DAILY 10/29/22 03/16/23 History iron) tablet,extended release (Slow Fe) multivitamin 1 tablet PO DAILY 10/29/22 03/16/23 History hydrocodone 5 mg-acetaminophen 325 1 tablet PO Q4H PRN pain #14 tabs 03/20/23 Rx mg tablet Patient hx anesthesia problems: none Family hx anesthesia problems: none Results Review: All pre-operative results and documents have been reviewed as part of the pre-operative evaluation. [facility] Past Medical History Medical History Depression Hypertension Hypothyroidism Multinodular goiter Obstructive sleep apnea Primary osteoarthritis of left knee Sore throat Surgical History Surgical History History of arthroscopy of left knee History of arthroscopy of right knee (~10/2014) History of cholecystectomy (04/2013) Status post total knee replacement, left (~11/27/22) Family History Family History Other Arthritis Carcinoma of colon Pancreatic cancer Skin cancer Social History Social History Smoking status: Never smoker Alcohol intake: current Drinks per week: 2 Alcohol use details: ONE DRINK PER MONTH Substance use: never Lack of Transportation: No Lack of Food: Never True Current Housing: I Have Housing Concerned About Future Housing: No Difficulty Paying Gas/Electric Bills: No Difficulty Paying for Meds: No Currently Unemployed: No Education: Master's Degree or Higher Difficulty w/ Childcare or Family Care: No Living arrangements: with family Gender identity (if verbalized by the patient): Female Sexual Orientation (if Verbalized by the Patient): Straight or Heterosexual Spiritual care concerns: No Anes - Eval Final PreProcedure Day of Procedure 03/20/23 12:10 Patient weight: normal Heart: regular rate and rhythm Lungs: clear to auscultation Airway: Mallampati scale class II Neurological: alert and oriented Last oral intake: >/= 8 hours ASA classification: III Emergent: no Anesthetic plan: proceed Anesthesia type and monitoring: general LMA and standard monitoring Results Review: All pre-operative results and documents have been reviewed as part of the pre-operative evaluation. Informed Consent: The patient's anesthetic plan and its attendant risks and benefits were discussed with the patient/family/POA. Questions were solicited and answers provided to the satisfaction of the patient/family/POA.
[2023-03-20] MEDS: CLINDAMYCIN 900 MG/D5W 50 ML 900 MG/50 ML PIGGYBACK 50 MG IVPB (14:16)
[2023-03-20] MEDS: GENTAMICIN 80MG/SOD CHL 50 ML 80 MG/50 ML BAG 100 MG IVPB (14:16)
--- NOTE | 2023-03-20 14:54 | W.PM.PROC2 ---
Procedure Note - Detailed Date of Procedure 03/20/23 Pre-op Diagnosis bartholin cyst Post-op Diagnosis Same Procedure Performed Removal of Bartholin's cyst Surgeon Benito Vasquez MD Anesthesia General Indications This is a 68-year-old female with a left recurrent Bartholin abscess Findings Very small left Bartholin abscess. Description of Procedure Patient was prepped draped in the normal sterile fashion placed in the dorsal lithotomy position. Under excellent general anesthesia weighted speculum placed in posterior fornix vagina. Porcelain cyst was seen and this was opened inside the vagina in linear fashion. It was sharply dissected until the gland was removed without difficulty. The vagina was then closed with continuous running 0 Vicryl she tolerated the procedure well blood loss was 5cc there were no immediate complications Estimated Blood Loss 5 Drains No Packing No Pathology Yes Complications No immediate complications Condition Stable Disposition PACU
[2023-03-20] MEDS: oxyCODONE HCL (*CRX) 5 MG TAB IR PO (15:58)
== END 2023-03-20 16:24 | disposition home or self-care (01) ==
PROVIDERS: PCP Family Medicine; Visit Provider Obstetrics & Gynecology
PROC: (CPT 56440; principal; 2023-03-20 13:30)
DX: N75.0 Cyst of Bartholin's gland (principal); I10 Essential (primary) hypertension; E03.9 Hypothyroidism, unspecified; G47.33 Obstructive sleep apnea (adult) (pediatric); F32.A Depression, unspecified
CPT/HCPCS: 56740; 88305; A9270; J1100; J1170; J1580; J2250; J2405; J2704; J3010; J7120

== ENCOUNTER 2023-05-19 12:29 | Outpatient (CLI) | payer MEDICARE, SELFPAY ==
[2023-05-19 12:56] LABS: Hematocrit 36.5 % (37.0-47.0); Hemoglobin 11.9 g/dL (12.0-15.0)
== END 2023-05-19 12:30 | disposition home or self-care (01) ==
LOC: ANHSURGERY 12:34
PROVIDERS: Anesthesiology; PCP Family Medicine; Visit Provider Obstetrics & Gynecology
DX: D64.9 Anemia, unspecified (principal); Z01.818 Encounter for other preprocedural examination
CPT/HCPCS: 36415; 85014; 85018

== ENCOUNTER 2023-05-22 04:06 | Day surgery (SDC) | payer MEDICARE, SELFPAY ==
[2023-05-15 15:33] VITALS: BMI 25.9
--- NOTE | 2023-05-15 15:41 | PC.NURSE ---
PRE-OP INSTRUCTIONS, PLEASE READ CAREFULLY Report to the Outpatient Waiting Room, entrance under the green pavilion located off [facility], at time _0715_ on date _05/22/23_. Planned Procedure Time: _0915_. Time changes happen often and if your time is changed the preop area will call you the afternoon before. - You and your visitor will be asked to self-screen and do not enter if you have any COVID symptoms. - A mask is optional within the hospital at this time. Patients may have clear liquids (water, carbonated beverages, clear teas, apple juice) until 3 hours prior to surgery with a maximum of 20 ounces. - No food from midnight until time of surgery Take the following medications with a SIP of water the morning of surgery: _BUPROPION, LEVOTHYROXINE, & ANTIBIOTIC IF STILL TAKING ONE_ DO NOT STOP ANY OF YOUR OTHER PRESCRIPTION MEDICATIONS PRIOR TO SURGERY ?EXCEPT THE FOLLOWING Medications to discontinue per ANESTHESIA - _MULTIVITAMIN 3 DAYS PRIOR TO SURGERY, Date to take last dose 05/18/23_ Please no make-up, nail [place], hairspray, perfume, deodorant, or body powder the day of surgery. No jewelry (including any body piercings) or valuables the day of surgery, leave them at home. Please take a shower or bath the night before, or the morning of, surgery with an antibacterial soap. Wear comfortable, loose fitting clothing. - Jewelry must be removed prior to entering the operating room. Rings and piercings that are not removed may be cut off. - The hospital will not accept responsibility for valuables. - Please leave all valuables, including medications, at home the day of surgery. If you are going home after surgery, a licensed driver trainer must drive you home. - NO public transportation without another adult if you receive anesthesia. - We recommend that an adult stay with you for 24 hours following discharge. - We also recommend that you do not drive, make important decision, drink alcoholic beverages, or take any drugs that were not prescribed by your health care provider for at least 24 hours after your discharge time. Follow any additional instructions given to you from your surgeon. If you or anyone in your household have experienced Covid symptoms in the past week, please notify your surgeon or the nurse liaison at the phone number below for possible testing. Telephone instructions given to _PATIENT_and asked if any additional questions and then verbalized understanding. Patient advised to call surgeon office or pre surgery nurse liaison [phone] if any additional questions.
--- NOTE | 2023-05-19 12:29 | PM.IMHP ---
H&P: HPI History of Present Illness Date/Time: 05/19/23 12:29 Chief Complaint: Vaginal cyst Narrative: 68 old female returns for cyst. This has been recurrent instrument undergo exploratory exam of the vagina with removal of the cyst. Risks and benefits reviewed in full [facility] Past Medical History Medical History Depression Hypertension Hypothyroidism Multinodular goiter Obstructive sleep apnea Osteoarthritis Surgical History Surgical History History of arthroscopy of left knee History of arthroscopy of right knee (~10/2014) History of cholecystectomy (04/2013) History of surgical removal of Bartholin’s gland cyst 03/20/2023 Status post total knee replacement, left (~11/27/22) Family History Family History Other Arthritis Carcinoma of colon Pancreatic cancer Skin cancer Social History Social History Smoking status: Never smoker Second hand tobacco smoke exposure: No Alcohol intake: current Drinks per week: 2 Alcohol use details: ONE DRINK PER MONTH Substance use: never Substance use type: does not use Lack of Transportation: No Lack of Food: Never True Current Housing: I Have Housing Concerned About Future Housing: No Difficulty Paying Gas/Electric Bills: No Difficulty Paying for Meds: No Currently Unemployed: No Education: Master's Degree or Higher Difficulty w/ Childcare or Family Care: No Living arrangements: with family Gender identity (if verbalized by the patient): Female Sexual Orientation (if Verbalized by the Patient): Straight or Heterosexual Spiritual care concerns: No Meds Home Medications and Allergies Home Medications Medication Instructions Recorded Confirmed Type bupropion HCl 150 mg 24 hr tablet, 150 mg PO QAM 07/30/22 05/15/23 History extended release levothyroxine 100 mcg tablet 100 mcg PO QAM 07/30/22 05/15/23 History lisinopril 20 1 tablet PO QAM 07/30/22 05/15/23 History mg-hydrochlorothiazide 25 mg tablet ferrous sulfate 142 mg (45 mg 142 mg PO DAILY 10/29/22 05/15/23 History iron) tablet,extended release (Slow Fe) multivitamin 1 tablet PO DAILY 10/29/22 05/15/23 History clindamycin HCl 150 mg capsule 150 mg PO ONCE #4 caps 04/01/23 05/15/23 Rx clindamycin HCl 300 mg capsule 300 mg TID 05/15/23 05/15/23 History Allergies Allergy/AdvReac Type Severity Reaction Status Date / Time cephalexin [From Keflex] Allergy Severe RASH, RED Verified 05/15/23 15:26 FACE Sulfa (Sulfonamide Allergy Mild Rash Verified 05/15/23 15:26 Antibiotics) Penicillins Allergy Unknown Rash Verified 05/15/23 15:26 Exam Const: General: cooperative, healthy appearing and comfortable Nutritional Appearance: average body habitus Orientation/consciousness: oriented to person, oriented to place and oriented to time Resp: Effort & Inspection: normal respiratory effort Cardio: Rate: regular rate Rhythm: regular rhythm Heart sounds: S1 normal heart sound present and S2 normal heart sound present GI: Inspection: normal to inspection : External Female Exam: normal external appearance Speculum Exam - Vagina: normal appearance of the vagina (Vaginal cyst palpable about the size but normal) Assessment and Plan Assessment and plan (1) Vaginal cyst: Code(s): N89.8 - Other specified noninflammatory disorders of vagina Status: Acute Plan Removal of vaginal cyst under anesthesia
--- NOTE | 2023-05-22 06:08 | WPDHPUPDATE1 ---
History and Physical Update Update Date/Time: 05/22/23 06:08 History and Physical has been reviewed, including an updated exam of the patient. There are NO changes in the patient's condition. Risks, benefits, and alternatives have been discussed and questions answered. Patient agrees to proceed with procedure.
[2023-05-22 07:26] VITALS: BP 131/63; PULSE 66; RESP 20; TEMP 36.9; O2SAT 100
--- NOTE | 2023-05-22 07:44 | WPDANESEPPF ---
Anes - Initial Pre Proc Eval Procedure: Operation Date: 05/22/23 09:15 Proposed Procedures p Excision of Vaginal Wall Mass - Benito Vasquez MD Date/Time: 05/22/23 07:44 Surgeon: Benito Vasquez MD Pre Op Diagnosis: Vag Wall Mass Patient Data Age: 68 Gender: F Height: 1.68 m Weight: 72.72 kg Allergies Allergy/AdvReac Type Severity Reaction Status Date / Time cephalexin [From Keflex] Allergy Severe RASH, RED Verified 05/15/23 15:26 FACE Sulfa (Sulfonamide Allergy Mild Rash Verified 05/15/23 15:26 Antibiotics) Penicillins Allergy Unknown Rash Verified 05/15/23 15:26 Home Medications Medication Instructions Recorded Confirmed Type bupropion HCl 150 mg 24 hr tablet, 150 mg PO QAM 07/30/22 05/15/23 History extended release levothyroxine 100 mcg tablet 100 mcg PO QAM 07/30/22 05/15/23 History lisinopril 20 1 tablet PO QAM 07/30/22 05/15/23 History mg-hydrochlorothiazide 25 mg tablet ferrous sulfate 142 mg (45 mg 142 mg PO DAILY 10/29/22 05/15/23 History iron) tablet,extended release (Slow Fe) multivitamin 1 tablet PO DAILY 10/29/22 05/15/23 History clindamycin HCl 150 mg capsule 150 mg PO ONCE #4 caps 04/01/23 05/15/23 Rx clindamycin HCl 300 mg capsule 300 mg TID 05/15/23 05/15/23 History hydrocodone 5 mg-acetaminophen 325 1 tablet PO Q4H PRN pain #20 tabs 05/22/23 Rx mg tablet Patient hx anesthesia problems: none Family hx anesthesia problems: none Results Review: All pre-operative results and documents have been reviewed as part of the pre-operative evaluation. [facility] Past Medical History Medical History Depression Hypertension Hypothyroidism Multinodular goiter Obstructive sleep apnea Osteoarthritis Surgical History Surgical History History of arthroscopy of left knee History of arthroscopy of right knee (~10/2014) History of cholecystectomy (04/2013) History of surgical removal of Bartholin’s gland cyst 03/20/2023 Status post total knee replacement, left (~11/27/22) Family History Family History Other Arthritis Carcinoma of colon Pancreatic cancer Skin cancer Social History Social History Smoking status: Never smoker Second hand tobacco smoke exposure: No Alcohol intake: current Drinks per week: 2 Alcohol use details: ONE DRINK PER MONTH Substance use: never Substance use type: does not use Lack of Transportation: No Lack of Food: Never True Current Housing: I Have Housing Concerned About Future Housing: No Difficulty Paying Gas/Electric Bills: No Difficulty Paying for Meds: No Currently Unemployed: No Education: Master's Degree or Higher Difficulty w/ Childcare or Family Care: No Living arrangements: with family Gender identity (if verbalized by the patient): Female Sexual Orientation (if Verbalized by the Patient): Straight or Heterosexual Spiritual care concerns: No Anes - Eval Final PreProcedure Day of Procedure 05/22/23 07:44 Patient weight: normal Heart: regular rate and rhythm Lungs: clear to auscultation Airway: Mallampati scale class II Neurological: alert and oriented Last oral intake: >/= 8 hours ASA classification: III Emergent: no Anesthetic plan: proceed Anesthesia type and monitoring: general GIVS and standard monitoring Results Review: All pre-operative results and documents have been reviewed as part of the pre-operative evaluation. Informed Consent: The patient's anesthetic plan and its attendant risks and benefits were discussed with the patient/family/POA. Questions were solicited and answers provided to the satisfaction of the patient/family/POA.
[2023-05-22] MEDS: ACETAMINOPHEN 500 MG TABLET 1000 MG PO (07:56)
[2023-05-22] MEDS: LACTATED RINGERS 1,000 ML 30 ML IV CONT (08:00)
[2023-05-22] MEDS: LIDOCAINE HCL 1% LOCAL INJ 20 ML VIAL 10 ML INFILTRATE (09:16)
--- NOTE | 2023-05-22 09:38 | W.PM.PROC2 ---
Procedure Note - Detailed Date of Procedure 05/22/23 Pre-op Diagnosis Vag Wall Mass Post-op Diagnosis Same Procedure Performed Resection vaginal mass Surgeon Benito Vasquez MD Anesthesia General and Local Indications this is a 68 year old female with recurrent vaginal cyst Findings very poor estrogenization. Between the rectum was scarred solid area that had a benign feel to it. Description of Procedure Patient was prepped draped in a sterile fashion placed in dorsal lithotomy position. Under excellent general anesthesia of the vagina was visualized. Very poor estrogenization was seen. Between the rectum the vagina was a scarred salad area. The mucosa was injected with 1% xylocaine anesthesia. A linear incision was then made in the mucosa was sharply dissected away from this ball of scarred tissue. This was removed piecemeal. The excess vaginal mucosa was then trimmed away and the vagina then closed with continuous running 0 Vicryl from superior to inferior portion. The cyst appeared to be completely removed although was not a cyst in nature was more scar tissue than anything else. There were no complications blood loss estimated 5cc instrument to recovery in satisfactory condition Estimated Blood Loss 5 Drains No Packing No Pathology Yes Complications No immediate complications Condition Stable Disposition PACU
[2023-05-22 09:40] VITALS: BP 99/58; PULSE 68; RESP 10; O2SAT 97
[2023-05-22 10:10] VITALS: BP 108/69; PULSE 67; RESP 10; O2SAT 100
[2023-05-22 10:36] VITALS: BP 120/59; PULSE 70; RESP 10
== END 2023-05-22 10:53 | disposition home or self-care (01) ==
PROVIDERS: PCP Family Medicine; Visit Provider Obstetrics & Gynecology
PROC: (CPT 57135; principal; 2023-05-22 09:15)
DX: L72.0 Epidermal cyst (principal); N89.8 Other specified noninflammatory disorders of vagina; F32.A Depression, unspecified; I10 Essential (primary) hypertension; E03.9 Hypothyroidism, unspecified; G47.33 Obstructive sleep apnea (adult) (pediatric); M19.90 Unspecified osteoarthritis, unspecified site; Z84.0 Family history of diseases of the skin and subcutaneous tissue; Z80.0 Family history of malignant neoplasm of digestive organs; Z79.891 Long term (current) use of opiate analgesic; Z90.49 Acquired absence of other specified parts of digestive tract
CPT/HCPCS: 57135; 88305; A9270; J2250; J2405; J2704; J3010; J7120

== ENCOUNTER 2023-11-24 11:56 | Outpatient (CLI) | payer MEDICARE, SELFPAY ==
--- NOTE | ~2023-11-24 | XR_ITS ---
XR knee LT 3V Ordering provider: Joni Guzman MD History: . Presence of keft artificial knee joint . Comparison: None. FINDINGS: BONES: No acute fracture or dislocation. JOINT SPACES: Total knee arthroplasty. SOFT TISSUES: Normal. IMPRESSION: No acute osseous abnormality left knee. Total knee arthroplasty. Reviewed, dictated and finalized at location A.
--- NOTE | ~2023-11-24 | XR_ITS ---
XR knee RT min 4V Ordering provider: Joni Guzman MD History: . unilateral primary OA, right knee CHRONIC INSTABILITY . Comparison: August 07, 2021 FINDINGS: BONES: No acute fracture or dislocation. JOINT SPACES: Narrowing of the medial compartment. Narrowing of the patellofemoral joint. SOFT TISSUES: Normal. IMPRESSION: No acute osseous abnormality right knee. Moderate to severe osteoarthritic changes. Consider MRI knee if there is concern for soft tissue internal derangement. Reviewed, dictated and finalized at location A.
== END 2023-11-24 11:57 | disposition home or self-care (01) ==
PROVIDERS: PCP Family Medicine; Visit Provider Orthopaedic Surgery
DX: Z96.652 Presence of left artificial knee joint (principal); M17.11 Unilateral primary osteoarthritis, right knee
CPT/HCPCS: 73562; 73564

== ENCOUNTER 2023-12-14 14:51 | Outpatient (CLI) | payer MEDICARE, SELFPAY ==
--- NOTE | ~2023-12-14 | CT_ITS ---
EXAMINATION: CT LE RT wo con DATE: 12/14/2023 15:42 INDICATION: Right knee osteoarthritis for preoperative planning TECHNIQUE: High resolution computed tomography (CT) of the right lower limb lower extremity from the hip through the ankle was performed without intravenous contrast. Additional sagittal and coronal rec onstructions were performed. Automated exposure control and iterative reconstruction technique were e mployed. The dose-length product was 1786.80 mGy-cm. COMPARISON: Right knee radiographs dated 11/24/2023 FINDINGS: Bone alignment is normal. No fracture. Severe osteoarthritis at the medial compartment of the right k nee with the severity of joint space narrowing but appreciated on the prior weightbearing radiographs . Sclerosis and minimal subarticular cystic change along the anteromedial aspect of the medial tibial plateau along the medial margin of the weightbearing medial femoral condyle. Moderate to severe join t space narrowing at the lateral aspect of the patellofemoral articulation. There are moderate-sized marginal osteophytes in all 3 compartments. Very small right knee joint effusion. Mild to moderate os teoarthritis the right hip without joint effusion. Additional mild particular osteoarthritis at the r ight ankle and multiple joints in the mid and forefoot. Soft tissues are unremarkable.. IMPRESSION: 1. Tricompartmental osteoarthritis at the right knee with medial and patellofemoral compartment predo minance. Reviewed, dictated and finalized at location A. IMPRESSION: 1. Tricompartmental osteoarthritis at the right knee with medial and patellofem oral compartment predominance.
--- NOTE | 2023-12-14 15:05 | ECG_ITS ---
Test Date: 2023-12-14 15:15:42 Measurements Intervals [place] Rate: 70 P: 48 MO: 151 QRS: 7 QRSD: 88 T: 38 QT: 433 QTc: 468 Interpretive Statements SINUS RHYTHM LOW QRS VOLTAGE IN PRECORDIAL LEADS BASELINE WANDER- II, III BORDERLINE ECG No previous ECG available for comparison Electronically Signed On 12-14-2023 15:38:47 CDT by Marciano López D.O.
[2023-12-14 15:10] LABS: Hematocrit 35.2 % (37.0-47.0); Hemoglobin 11.7 g/dL (12.0-15.0)
[2023-12-14 15:21] LABS: Albumin Level 4.2 g/dL (3.5-5.1); Estimated Glomerular Filt Rate 55; Glucose 120 mg/dL (65-110)
== END 2023-12-14 14:52 | disposition home or self-care (01) ==
PROVIDERS: PCP Family Medicine; Visit Provider Orthopaedic Surgery
DX: M17.11 Unilateral primary osteoarthritis, right knee (principal); J02.9 Acute pharyngitis, unspecified; I10 Essential (primary) hypertension; R94.31 Abnormal electrocardiogram [ECG] [EKG]
CPT/HCPCS: 36415; 73700; 82040; 82565; 82947; 85014; 85018; 93005

== ENCOUNTER 2024-05-17 13:13 | Outpatient (CLI) | payer MEDICARE, SELFPAY ==
[2024-05-17 13:23] LABS: Basophils Absolute Auto 0.1 K/mm3 (0.0-0.1); Basophils Percent Auto 0.7 % (0.2-1.2); Eosinophils Absolute Auto 0.1 K/mm3 (0-0.3); Eosinophils Percent Auto 1.1 % (0-4.4); Hematocrit 28.3 % (37.0-47.0); Hemoglobin 9.4 g/dL (12.0-15.0); Immature Granulocyte Absolute 0.05 K/mm3 (0.00-0.031); Immature Granulocyte Percent A 0.4 % (0-0.5); Lymphocytes Absolute Auto 1.56 K/mm3 (0.9-3.2); Lymphocytes Percent Auto 12.7 % (18.3-44.2); Mean Corpuscular HGB Conc 33.2 g/dl (32-36); Mean Corpuscular Hemoglobin 32.5 pg (26-34); Mean Corpuscular Volume 97.9 fl (80-100); Mean Platelet Volume 9.2 fl (7.4-10.4); Monocytes Absolute Auto 1.4 K/mm3 (0.1-0.6); Monocytes Percent Auto 11.6 % (2.6-8.5); Neutrophils Percent Auto 73.5 % (45.5-73.1); Platelet Count Result 230 k/mm3 (150-375); Red Blood Count 2.89 M/mm3 (4.2-5.4); Red Cell Distribution Width 14.9 % (11.5-14.5); White Blood Count 12.3 K/mm3 (4.5-10.0)
[2024-05-17 13:34] LABS: Alanine Aminotransferase 23 U/L (6-35); Albumin Level 3.7 g/dL (3.5-5.1); Alkaline Phosphatase 89 U/L (38-126); Anion Gap 0 mmol/L (4-12); Aspartate Amino Transferase 34 U/L (14-36); Bilirubin,Total 0.3 mg/dL (0.2-1.3); Blood Urea Nitrogen 22 mg/dL (7-17); Calcium 8.6 mg/dL (8.4-10.2); Carbon Dioxide 31 mmol/L (22-30); Chloride 105 mmol/L (98-107); Estimated Glomerular Filt Rate > 60; Glucose 95 mg/dL (65-110); Potassium 3.4 mmol/L (3.4-5.0); Sodium 136 mmol/L (137-145)
[2024-05-17 14:06] LABS: Influenza A QL RT-PCR Negative (Negative); Influenza B QL RT-PCR Negative (Negative); RSV RNA, RT-PCR Negative (Negative); SARS-CoV-2 RNA PCR Negative (Negative)
[2024-05-17 15:45] LABS: Strep Group A RT-PCR NOT DETECTED (Negative)
== END 2024-05-17 13:14 | disposition home or self-care (01) ==
PROVIDERS: PCP Family Medicine; Visit Provider Family Medicine
DX: J98.8 Other specified respiratory disorders (principal)
CPT/HCPCS: 36415; 80053; 85025; 87637; 87651; 87880

== ENCOUNTER 2024-05-19 11:15 | Outpatient (CLI) | payer MEDICARE, SELFPAY ==
--- NOTE | ~2024-05-19 | XR_ITS ---
XR chest 2V Ordering provider: Danay Jenkins MD History: 69 years Female with . Acute cough . Comparison: March 06, 2013 FINDINGS: MEDIASTINUM: The cardiac silhouette is not enlarged. Right Port-A-Cath with the tip overlying superio r vena cava. LUNGS: No infiltrates, effusions or pneumothorax. OTHER: No free air under the diaphragm. IMPRESSION: No acute cardiopulmonary pathology. Reviewed, dictated and finalized at location A. KMAKER
== END 2024-05-19 11:16 | disposition home or self-care (01) ==
PROVIDERS: PCP Family Medicine; Visit Provider Internal Medicine Medical Oncology
DX: R05.1 Acute cough (principal)
CPT/HCPCS: 71046

== ENCOUNTER 2024-08-26 09:26 | Outpatient (RCR) | payer MEDICARE, SELFPAY ==
[2024-08-26] MEDS: diphenhydrAMINE HCl CAP 25 MG CAPSULE PO (09:52)
[2024-08-26] MEDS: ACETAMINOPHEN 325 MG TABLET 650 MG PO (09:52)
[2024-08-26 10:07] VITALS: BP 133/73; PULSE 68; RESP 16; TEMP 36.4; O2SAT 99
[2024-08-26 10:22] VITALS: BP 148/85; PULSE 66; RESP 16; TEMP 36.6; O2SAT 100
[2024-08-26 11:22] VITALS: BP 135/69; PULSE 69; RESP 16; TEMP 36.4; O2SAT 99
[2024-08-26 12:19] VITALS: BP 142/73; PULSE 67; RESP 16; TEMP 36.3; O2SAT 100
[2024-08-26] MEDS: HEPARIN SODIUM LOCK FLUSH 500 UNITS/5 ML VIAL (12:22)
== END 2024-11-24 23:59 | disposition home or self-care (01) ==
LOC: ANHCPCTRAN 09:26
PROVIDERS: PCP Family Medicine; Visit Provider Internal Medicine Hematology & Oncology
DX: C50.512 Malignant neoplasm of lower-outer quadrant of left female breast (principal)
CPT/HCPCS: 36415; 36430; 86850; 86900; 86901; 86923; A9270; J1642; P9016

== ENCOUNTER 2024-10-24 09:48 | Outpatient (CLI) | payer MEDICARE, SELFPAY ==
--- NOTE | 2024-10-24 | ECHO_ITS ---
Patient Info Name: Anirudh Castro Age: 69 years : 1955 Gender: Female Ht: 66 in Wt: 167 lbs BSA: 1.89 m2 HR: 65 bpm BP: 158 / 68 mmHg Technical Quality: Fair Exam Date: 10/24/2024 10:25 AM Patient Status: O Admit Date: 10/24/2024 Exam Type: CA echo dop color flow w con Complete two-dimensional, color flow and Doppler transthoracic echocardiogram is performed with contrast to opacify the left ventricle and to improve the deliniation of the left ventricle endocardial borders. Director Food And Beverage: Destini Iniguez Attending Provider: Jacky Singh MD Contrast/Agitated Saline Contrast/Ag. Saline: Definity Amount: 2.00 ml IV Access Condition: patent with no signs of infiltration New IV Access: Right Site Condition: IV removed Summary 1. Left ventricular chamber dimension is normal. 2. Left ventricular systolic function is normal, estimated at 60-65. 3. The left ventricular diastolic function is abnormal. 4. Definity contrast administered improved wall motion interpretation. 5. E/e' 13 is mildly elevated. 6. Left atrial chamber dimension is mildly enlarged. 7. There is mild mitral valve regurgitation. 8. There is mild tricuspid valve regurgitation. 9. No pulmonary hypertension, estimated pulmonary arterial systolic pressure is 38 mmHg. Left Ventricle E/e' 13 is mildly elevated. Left ventricular chamber dimension is normal. Left ventricular systolic function is normal, estimated at 60-65. The left ventricular diastolic function is abnormal. Definity contrast administered improved wall motion interpretation. Right Ventricle Right ventricular chamber dimension is normal. Right ventricular systolic function is normal and with normal TAPSE 2.4 cm. Left Atria Left atrial chamber dimension is mildly enlarged. Right Atria Right atrial chamber dimension is normal. Aortic Valve The aortic valve is trileaflet. There is no aortic valve stenosis. There is no aortic valve regurgitation. Pulmonic Valve There is no pulmonic regurgitation. Mitral Valve There is no mitral valve stenosis. There is mild mitral valve regurgitation. Tricuspid Valve There is mild tricuspid valve regurgitation. No pulmonary hypertension, estimated pulmonary arterial systolic pressure is 38 mmHg. Pericardium/Pleural There is no pericardial effusion. Inferior Vena Cava Normal inferior vena cava with >50% collapse upon inspiration consistent with normal right atrial pressure, 5 mmHg. Aorta The aortic root size at the sinus of Valsalva is normal. Left Ventricular Outflow Tract Name Value Normal LVOT 2D LVOT Diameter 1.9 cm LVOT Doppler LVOT Peak Velocity 98 cm/s LVOT Peak Gradient 4 mmHg LVOT Mean Gradient 2 mmHg LVOT VTI 21 cm LVOT VTI/AV VTI Ratio 0.6 LVOT Stroke Volume 60 ml LVOT CO 10.3 l/min LVOT CI 5.4 l/min/m2 Pulmonic Valve Name Value Normal PV Doppler PV Peak Velocity 90 cm/s PV Peak Gradient 3 mmHg Mitral Valve Name Value Normal MV Diastolic Function MV E Peak Velocity 100 cm/s MV A Peak Velocity 93 cm/s MV E/A 1.1 MV Decel Time (PW) 212 ms MV Annular TDI MV E/e' (Septal) 14.7 MV E/e' (Lateral) 11.7 MV E/e' (Average) 13.2 Tricuspid Valve Name Value Normal TV Regurgitation Doppler TR Peak Velocity 286 cm/s TR Peak Gradient 33 mmHg Estimated PAP/RSVP RA Pressure 5 mmHg <=5 PA Systolic Pressure 38 mmHg <36 RV Systolic Pressure 38 mmHg <36 TV Annular TDI TV Lateral Nahomy s' Velocity 16.8 cm/s >=9.5 Aorta Name Value Normal Ascending Aorta Ao Root Diameter (MM) 3.2 cm Ao Root Diam Index (MM) 1.7 cm/m2 Aortic Valve Name Value Normal AV Doppler AV Peak Velocity 133 cm/s AV Peak Gradient 7 mmHg AV Mean Gradient 4 mmHg AV VTI 33 cm AV Area (Cont Eq VTI) 1.8 cm2 >=3.0 AV Area (Cont Eq Kieran) 2.1 cm2 AV DI (Kieran) 0.74 AV Regurgitation 2D LVOT Area 2.8 cm2 Ventricles Name Value Normal LV Dimensions 2D/MM IVS Diastolic Thickness (2D) 1.1 cm 0.6-1.0 LVID Diastole (2D) 4.7 cm 3.8-5.2 LVIW Diastolic Thickness (2D) 0.9 cm 0.6-0.9 LVID Systole (2D) 3.3 cm 2.2-3.5 LVOT Diameter 1.9 cm LV Mass (2D Cubed) 167.58 g 67.00-162.00 LV Mass Index (2D Cubed) 88 g/m2 43-95 Relative Wall Thickness (2D) 0.39 <=0.42 LV Fractional Shortening/Ejection Fraction 2D/MM LV Fractional Shortening (2D) 29 % 27-45 LV EF (2D Teichholz) 56 % LV Diastolic Volume (4C MOD) 130 ml LV EF (4C MOD) 50 % LV Diastolic Volume (2C MOD) 97 ml LV EF (2C MOD) 52 % LV Diastolic Volume (BP MOD) 104 ml 46-106 LV Diastolic Volume Index (BP MOD) 55 ml/m2 29-61 LV Systolic Volume (BP MOD) 46 ml 14-42 LV Systolic Volume Index (BP MOD) 25 ml/m2 8-24 LV EF (BP MOD) 55 % 54-74 LV Diastolic Length (4C) 8.3 cm LV Systolic Length (4C) 6.8 cm LV Stroke Volume (4C MOD) 65 ml RV Dimensions 2D/MM RVID Diastole (2D) 3.6 cm 2.1-3.5 Atria Name Value Normal LA Dimensions LA Dimension (MM) 3.4 cm 2.7-3.8 LA Volume (4C A-L) 75 ml LA Volume (BP A-L) 70 ml RA Dimensions RA Systolic [place] Length (4C) 4.9 cm 2.2-2.8 RA Area (4C) 15.7 cm2 <=18.0 Report Signatures
--- OUTSIDE RECORDS SUMMARY | 2024-10-24 10:37 | XMS_ITS ---
Author Organization [employer] [facility] Address [address] [place] [address] Care Team Providers Care Information Officer Name Role Phone Mckinley Jordan MD Primary Care Provider [phone] Active Problems Patient Care Coordination No te Formatting of this note migh t be different from the original. I call your ce;Primary Care: Mckinley Jordan MD Referring Provider: No referring provider defined for this encounter. Other: Dr. Marissa Haider MD Problem Noted Date Diagnosed Date S/P left mastectomy 09/01/2024 Malignant neoplasm of lower- outer quadrant of left breast of female, estrogen receptor negative 03/01/2024 Cancer Staging:Clinical stage from 03/01/2024:Stage IIB(cT2, cN1(f), cM0, G3, ER- , CA-, HER2+) - Signed by Marissa Haider MD on 05/03/2024 Current Treatment and Therapy Plans No current plan information found. Past Treatment and Therapy Plans No past plan information found. Lifetime Dose Tracking * Chemical Lifetime Dose Automatic Entry Manual Entr y Effective Dose 12.87 mSv 12.87 mSv 0 mSv Total DLP 598.73 DLP 598.73 DLP 0 DLP CTDIvol Max 17.88 mGy 17.88 mGy 0 mGy
--- OUTSIDE RECORDS SUMMARY | 2024-10-24 10:37 | XMS_ITS | Continuity of Care Document ---
Author Organization [facility] Address [address] [place] [address] Phone Care Team Providers Care Jukebox Routeman Name Role Phone EuniceNatalie Duff Unavailable Unavailab [...] Providers Copied on Encounter [facility], [address], [place], [address], [place] tel:[phone] [facility] Osteoarthriti s of right kneeTorn meniscus 5 Jose Estrada. [address] [facility] [address], [place], [place], [address]. tel:[phone] OFFICE/OUTPA TIENT VISIT EST [facility], [address] [facility] [address], [place], [address], [place] tel:[phone] [facility] Torn meniscusOsteo arthritis of right knee 5 Diane Pineda. [address] [facility], [place], [place], [id number]. tel:[phone] OFFICE/OUTPA TIENT VISIT EST [facility], [address] [facility] [address], [place], [address], [place] tel:[phone] [facility] Pain, knee/lower legOsteoarthr itis of right kneeTorn meniscus Aug- 0201 5 Diane Pineda. [address] [facility], [place], [place], [address]. tel:[phone] OFFICE/OUTPA TIENT VISIT EST [facility], [address] [facility] [address], [place], [address], [place] tel:[phone] [facility] Left shoulder (chief complaint) Obesity 4 Quinton Zepeda. [address], [place], [place], [address]. tel:[phone] Referring Provider: Mckinley Hair, [address], [place], [address]. tel:[phone] [facility], [address] [facility] [address], [place], [address], [place] tel:[phone] [facility] No Information 4 Sushant Jaimes. [address], [place], [place], [address]. tel:[phone] OFFICE/OUTPA TIENT VISIT EST [facility], [address] [facility] [address], [place], [address], [place] tel:[phone] [facility] ObesityDietar y surveillance and counseling 3 Shayy Hernadez. [address] [facility], [place], [place], [address]. tel:[phone] Referring Provider: Mckinley Hair, [address], [place], [address]. tel:[phone] OFFICE/OUTPA TIENT VISIT NEW [facility], [address], [place], [address], [place] tel:[phone] [facility] left foot pain (chief complaint) Hypertension, UnspecifiedUn specified site of foot sprain 3 Jaquan Gonzáles. [address], [place], [place], [address]. tel:[phone] Family History Family Member Type Diagnosis Age At Onset Problem (finding) Family history of Heart disease Brother Problem (finding) hypertension Father Problem (finding) hypertension Problem (finding) Family history of arthr itis Problem (finding) Family history of ortho pedic problems Brother Problem (finding) cancer of colon Payers Payer name Insurance type Covered alliance party ID Authoriza tion(s) [facility] Choice [id number] Social History Type Description Quantity Date Captured [...]
--- OUTSIDE RECORDS SUMMARY | 2024-10-24 10:37 | XMS_ITS | Referral Summary ---
Author Organization [facility] Address [address] [address] Care Team Providers Care Patrol Man Name Role Phone Mckinley Jordan MD Primary Care Provider [phone] Allergies Active Allergy Reactions Criticality Noted Date Comments Penicillins Rash Medium 03/26/2020 Sulfa (Sulfonamide Antibiotics) Hives Medium 11/22 Medications buPROPion XL (WELLBUTRIN XL) 150 mg 24 hr tablet TK 1 T PO QAM 0 Active lisinopril-hydr oCHLOROthiazide (ZESTORETIC) 20-25 mg per tablet TK 1 T PO QD 0 Active levothyroxine sodium (TIROSINT) 50 mcg capsule Take 50 mcg by mouth private investigator surveillance before breakfast Active metoprolol tartrate (LOPRESSOR) 50 mg immediate release tablet TK 1 T PO BID 0 Active Active Problems No known active problems Social History Tobacco Use Types Packs/Day Years Used Date Smoking Tobacco: Never Personal Safety Answer Date Recorded Have you ever been in or are you currently in a harmful physical or emotional relationship or is someone making you feel afraid or unsafe? Denies 02/14/2023 Comments No Sex and Gender Information Value Date Recorded Sex Assigned at Not on file Legal Sex Female 3:03 AM NURSING SCHEDULER Gender Identity Not on file Sexual Orientation Not on file Last Filed Vital Signs Vital Sign Reading Time Taken Comments Blood Pressure 133/79 02/14/2023 3:27 PM CDT Pulse 66 02/14/2023 3:27 PM CDT Temperature 36.7 C (98 F) 02/14/2023 3:27 PM CDT Respiratory Rate 17 02/14/2023 3:27 PM CDT Oxygen Saturation 99% 02/14/2023 3:27 PM CDT Inhaled Oxygen Concentration - - Weight 72.6 kg (160 lb) 02/14/2023 3:27 PM CDT Height 167.6 cm (5' 6) 02/14/2023 3:27 PM CDT Body Mass Index 25.82 02/14/2023 3:27 PM CDT Plan of Treatment Not on file Procedures Procedure Name Priority Date/Time Associated Diagnosis Comments COLONOSCOPY 03/26/2020 2:18 PM NURSING SCHEDULER from Last 3 Months or Most Recently Relevant to Health Maintenance Results * COLONOSCOPY (03/26/2020 2:18 PM NURSING SCHEDULER) Anatomical Region Laterality Modality Other Narrative Procedure Note Jose Zambrano MD PhD - 03/26/2020 2:18 PM CST ENDOSCOPY LAB Patient Name: Anirudh Castro Procedure Date: 03/26/2020 2:18 PM Date of : 1955 Admit Type: Outpatient Age: 65 Gender: Female Attending MD: Jose Zambrano MD,PHD Room: [facility] ENDOSCOPY ROOM 03 Note Status: Finalized Procedure: Colonoscopy Indications: Family history of colon cancer in a first-degreerelative (brother in his 50s), Last colonoscopy 10 years ago Providers: Jose Zambrano MD, PHD Referring MD: Leni Osorio PA-C Medicines: Monitored Anesthesia Care Complications: No immediate complications. Estimated Blood Loss: Estimated blood loss: none. Procedure: Pre-Anesthesia Assessment: - Immediately prior to administration of medications,the patient was re-assessed for adequacy to receivesedatives. The benefits, risks and alternatives of the procedureand sedation were discussed and informed consent wasobtained. All questions were answered. Please refer to the signed informed consent document in the medical record. Thescope was passed under direct vision. The [id number] introduced through the anus and advanced to theterminal ileum. The colonoscopy was performed withoutdifficulty. The patient tolerated the procedure well. The qualityof the bowel preparation was excellent. The quality of the bowel preparation was evaluated using the BBPS (Nye Bowel Preparation Scale) with scores of: Right Colon =3, Transverse Colon = 3 and Left Colon = 3 (entire mucosa seen well with no residual staining, small fragments of stool or opaque liquid). The total BBPS score equals 9. The bowel preparation used was GoLYTELY. Bowel prep was administered using a split dose. Findings: The perianal and digital rectal examinations were normal. A few small-mouthed diverticula were found in the descending colon. The exam was otherwise without abnormality on direct and retroflexion views. Impression: - Diverticulosis in the descending colon. - The examination was otherwise normal on direct and retroflexion views. Recommendation: - Repeat colonoscopy in 5 years for surveillance. - High fiber diet. - Contact Information: During normal business hours - Please call the Nurse Coordinator: [phone]. After hours, evening, nights, weekends and holidays - Please call the hospital self propelled dredge operator at and ask for the GI fellow automotive airconditioning mechanic. Attending Participation: I personally performed the entire procedure. Electronically signed by Jose Zambrano MD. Jose Zambrano MD, PHD 03/26/2020 2:37:05 PM Number of Addenda: 0 Note Initiated On: 03/26/2020 2:18 PM Jose Zambrano MD PhD ENDOSCOPY PROCEDURES Edit ed Result - Final from Last 3 Months or Most Recently Relevant to Health Maintenance Insurance [facility] Pain Doctor [facility] [place] [address] [place] MEDICARE [facility] Advance Directives For more information, please contact: [phone] * Full Code (Latest Code Status on File) Date Activated Date Inactivated Comments 03/26/2020 12:45 PM 03/26/2020 7:38 PM Care Teams Patrol Man Relationship Specialty Start Date End Date Mckinley Jordan MD [address] [place] [address] GIL SANCHEZ [address] PCP - General Family Medicine 9/23/23
--- OUTSIDE RECORDS SUMMARY | 2024-10-24 10:37 | XMS_ITS | Encounter Summary ---
Author Organization [facility] [employer] [facility] Address [address] [place] [address] Care Team Providers Care Placement Specialist Name Role Phone Mckinley Jordan MD Primary Care Provider [phone] Encounter Details Date Type Department Care Team (Late Contact Info) Description 10/21/2024 Orders Only [facility] Oncology and Hematology - [place] [address] [facility] [address] [place] [address] Jacky Singh MD [address] [facility] [address] [place] [address] Social History Tobacco Use Types Packs/Day Years Used Date Smoking Tobacco: Never Smokeless Tobacco: Never Alcohol Use Standard Drinks/Week Comments Not Currently 3 (1 standard drink = 0.6 oz pur e alcohol) Feeling Safe Answer Date Recorded Are you in a relationship wi th someone who hurts you emotionally and/or physically? No 08/29/2024 Food Insecurity Answer Date Recorded Patient needs follow up regardin 09/15/2024 Transportation Needs Answer Date Record ed Patient needs follow up regardin 09/15/2024 Housing Stability Answer Date Recorded Social/Environmental Concerns No concerns Utility Needs Answer Date Recorded Patient needs follow up regardin 09/15/2024 Comments No Sex and Gender Information Value Date Recorded Sex Assigned at Not on file Legal Sex Female 5:12 AM PATCH WASHER Gender Identity Not on file Sexual Orientation Not on file documented as of this encounter Plan of Treatment Upcoming Encounters Date Type Department Care Team (Late st Contact Info) Description 10/25/2024 11:15 AM CDT Appointment [facility] [address] [place] [address] Alyssia Sims, Physical Therapist 10/31/2024 2:00 PM CDT Office Visit [facility] Plastic Surgery at the [facility] Medicine [address] [address] [place] [address] Theodore Jackson MD [address] [facility] [address] [place], [place] [id number] 11/17/2024 10:00 AM CDT Office Visit [facility] Oncology and Hematology - [place] [address] [facility] [address] [place] [address] Jacky Singh MD [address] [facility] [address] [place] [address] 01/10/2025 12:00 PM CDT Appointment [facility] [address] [address] [place] [phone] [place] [address] [facility] [address] [place] [address] 01/10/2025 1:15 PM CDT Office Visit [facility] Breast Surgery Dario Sumner [address] [facility] [address] [facility] [address] [place] [address] [place] [address] [facility] [address] [place] [address] documented as of this encounter Procedures Procedure Name Priority Date/Time Associated Diagnosis Comments CBC WITH DIFFERENTIAL Routine 10/18/2024 3:39 PM CDT COMPREHENSIVE METABOLIC PANEL Routine 10/18/2024 3:17 PM CDT documented in this encounter Results * CBC WITH DIFFERENTIAL (10/18/2024 3:39 PM CDT) Blood us Jacky Singh MD HEMATOLOGY ORDERABLES Final Res ult * COMPREHENSIVE METABOLIC PANEL (10/18/2024 3:17 PM CDT) Blood us Jacky Singh MD CHEMISTRY ORDERABLES Final Resu lt documented in this encounter Visit Diagnoses Not on filedocumented in this encounter Care Teams Placement Specialist Relationship Specialty Start Date End Date Mckinley Jordan MD [address] [place] [phone] PCP - General Family Practice 11/13/18 documented as of this encounter
--- OUTSIDE RECORDS SUMMARY | 2024-10-24 10:37 | XMS_ITS | Clinical Summary ---
Author Organization [employer] [facility] [facility] Address [address] [place] [address] Care Team Providers Care Surgical Instrument Repair Specialist Name Role Phone Mckinley Jordan MD Primary Care Provider Allergies Active Allergy Reactions Criticality Noted Date Comments Cephalexin Rash Low 08/05/2024 Penicillins Rash,Unknown Medium 03/26/2020 Sulfa (Sulfonamide Antibiotics) Rash,Hives High 11/22 Medications lisinopril-hyd roCHLOROthiazi de (ZESTORETIC) 20-25 mg tablet Take 1 Tablet by mouth daily. Active tolterodine (DETROL LA) 4 mg Extended Release 24 hour capsule 4 Active levothyroxine 25 mcg tablet Take 25 mcg by mouth. Active ibuprofen (MOTRIN) 800 mg tablet ibuprofen 800 mg tablet TAKE 1 TABLET BY MOUTH EVERY 8 HOURS NEEDED FOR PAIN Active doxycycline hyclate (VIBRAMYCIN) 100 mg capsule Take 1 Capsule by mouth 2 times daily. 4 Active docusate sodium (COLACE) 100 mg capsule Take 100 mg by mouth. Active clindamycin phosphate (CLEOCIN T) 1 % Gel APPLY TOPICALLY TO THE AFFECTED AREA DAILY 4 Active cetirizine (ZyrTEC) 10 mg tablet Take 10 mg by mouth. Active buPROPion HCL (WELLBUTRIN XL) 150 mg Extended Release 24 hour tablet Take 1 Tablet by mouth daily in the morning. Active acetaminophen (TYLENOL) 325 mg tablet Take 650 mg by mouth. Active CYANOCOBALAMIN , VITAMIN B-12, ORAL Take by mouth. Acti ve lidocaine-pril ocaine (EMLA) 2.5-2.5 % CreamIndicatio ns:HER2-positi ve carcinoma of left breast (CMS/HCC),Sona gnant neoplasm of lower-outer quadrant of left breast of female, estrogen receptor negative (CMS/HCC) Apply to affected area see administration instructions. Apply to port site 1 hour prior to needle sticks- cover with saran wrap 30 Gram 3 4 Active carbonyl iron (FEOSOL) 45 mg Tablet Take 45 mg by mouth daily. Active Saccharomyces boulardii (FLORASTOR) 250 mg Capsule Take by mouth. Active ondansetron (ZOFRAN ODT) 8 mg Tablet, Rapid Dissolve Dissolve 1 tablet on top of tongue then swallow with saliva every 8 hours as needed for nausea or vomiting 30 Tablet 1 4 Active dexAMETHasone (DECADRON) 4 mg tablet Take 2 Tablets (8 mg) by mouth 2 times daily day before treatment, day of treatment and day after treatment with each cycle. 12 Tablet 4 4 Active HYDROcodone-ac etaminophen (NORCO) 5-325 mg tabletIndicati ons:HER2-posit maru carcinoma of left breast (CMS/HCC),Sona gnant neoplasm of lower-outer quadrant of left breast of female, estrogen receptor negative (CMS/HCC) Take 1 Tablet by mouth every 4 hours as needed for Pain, Break-Through or Pain, Severe. Max Daily Amount: 6 Tablets 15 Tablet 03/30/2024 3:45 PM LOOM BLOWER 4 Active clindamycin HCL (CLEOCIN) 300 mg Capsule TAKE 1 CAPSULE BY MOUTH THREE TIMES DAILY FOR 7 DAYS DIRECTED 4 Active diphenoxylate- atropine 2.5 mg-0.025 mg tablet Take 1 Tablet by mouth 4 times daily as needed for Diarrhea/Loose Stools. 40 Tablet 1 4 Active terconazole (TERAZOL) 0.4% vaginal cream INSERT 1 APPLICATORFUL VAGINALLY EVERY DAY AT BEDTIME FOR 7 DAYS 4 Active prochlorperazi ne maleate (COMPAZINE) 10 mg tablet TAKE 1 TABLET(10 MG) BY MOUTH EVERY 6 HOURS NEEDED FOR NAUSEA OR VOMITING 30 Tablet 4 Active levoFLOXacin (LEVAQUIN) 750 mg tabletIndicati ons:Acute cough Take 1 tablet by mouth daily for 5 days. 5 Tablet 4 Active pantoprazole (PROTONIX) 40 mg Tablet, Delayed Release (E.C.) Take 1 Tablet (40 mg) by mouth daily. 30 Tablet 2 5 Active oxyCODONE (ROXICODONE) 5 mg tabletIndicati ons:Malignant neoplasm of lower-outer quadrant of left breast of female, estrogen receptor negative (CMS/HCC) Take 1 Tablet (5 mg) by mouth every 4 hours as needed for Pain. Max Daily Amount: 30 mg 20 Tablet 08/30/2024 1:03 PM CDT 5 Active methylPREDNISo lone (MEDROL DOSPACK) 4 mg Tablets, Dose Pack Use as directed 21 Tablet 5 Active ferrous sulfate 325 mg (65 mg iron) tablet Take 325 mg by mouth daily. Active Active Problems Patient Care Coordination No te [...] 03/01/2024:Stage IIB(cT2, cN1(f), cM0, G3, ER- , NE-, HER2+) - Signed by Marissa Haider MD on 05/03/2024 Encounters Date Type Department Care Team Description 10/21/2024 Orders Only [facility] Oncology and Hematology - [place] [address] [place] [address] Jacky Singh MD 10/20/2024 Orders Only [facility] and Hematology - [place] Alex[address] [place] [address] Jacky Singh MD Encounter for antineoplastic chemotherapy (Primary Dx); Malignant neoplasm of lower-outer quadrant of left breast of female, estrogen receptor negative (CMS/HCC) 10/19/2024 3:30 PM CDT Office Visit [facility] Hematology - [place] Frank [address] [place] [address] Jacky Singh MD Malignant neoplasm of lower-outer quadrant of left breast of female, estrogen receptor negative (CMS/HCC) (Primary Dx) 10/17/2024 Orders Only [facility] On[facility] and Hematology [facility] [address] [place] [address] Jacky Singh MD Malignant neoplasm of lower-outer quadrant of left breast of female, estrogen receptor negative (CMS/HCC) 10/12/2024 External Device Data STL ABSTRACTION Provider, Abstract 10/11/2024 External Device Data STL ABSTRACTION Provider, Abstract 10/05/2024 9:30 AM CDT Clinical Support [facility] Plastic Surgery at the [facility] [address] [place] [address] Postoperative follow-up (Primary Dx) 10/03/2024 Orders Only [facility] Oncology and [facility] [address] [place] [address] Jacky Singh MD Malignant neoplasm of lower-outer quadrant of left breast of female, estrogen receptor negative (CMS/HCC) 09/28/2024 9:30 AM CDT Clinical Support [facility] Plastic Surgery at the [facility] [address] [place] [address] Postoperative follow-up (Primary Dx) 09/23/2024 Orders Only [facility] Oncology and Hematology [facility] Frank [address] [place] [address] Jacky Singh MD 09/23/2024 Chart Note [facility] Oncology Patient Navigation [address] [place] [address] Silvina Reyes, RN Nurse Navigation 09/22/2024 2:30 PM CDT Office Visit [facility] Oncology and Hematology [facility] Frank [address] [place] [address] Jacky Singh MD Malignant neoplasm of lower-outer quadrant of left breast of female, estrogen receptor negative (CMS/HCC) (Primary Dx) 09/20/2024 1:00 PM CDT Clinical Support [facility] Surgery at the [facility] [address] [place] [address] Postoperative follow-up (Primary Dx) 09/19/2024 Orders Only [facility] Oncology and Hematology - [place] [address] [place] [address] Jacky Singh MD Malignant neoplasm of lower-outer quadrant of left breast of female, estrogen receptor negative (CMS/HCC) 09/16/2024 Chart Note [facility] Oncology Patient Navigation [address] [place] [address] Silvina Reyes, RN Nurse Navigation 09/13/2024 2:30 PM CDT Clinical Support [facility]astic Surgery at the [facility] [address] [place] [address] Postoperative follow-up (Primary Dx) 09/13/2024 1:00 PM CDT Office Visit [facility] Breast Surgery Catie Reid [address] [facility] [address] [place] [address] Marissa Haider MD HER2-positive carcinoma of left breast (CMS/HCC) (Primary Dx); S/P left mastectomy; Malignant neoplasm of lower-outer quadrant of left breast of female, estrogen receptor negative (CMS/HCC) 09/09/2024 8:30 AM CDT Office Visit [facility] Surgery at the [facility] [address] [place] [address] Dasia Otto PA Postoperative follow-up (Primary Dx) 09/06/2024 External Device Data STL ABSTRACTION Provider, Abstract 09/05/2024 Orders Only [facility] Oncology and Hematology [place] [address] [place] [address] Jacky Singh MD Malignant neoplasm of lower-outer quadrant of left breast of female, estrogen receptor negative (CMS/HCC) 09/01/2024 Results Follow-Up [facility] Breast Surgery Catie Reid [address] [facility] [address] [place] [address] Marissa Haider MD PATHOLOGY 08/30/2024 Chart Note [facility] Oncology Patient Navigation [address] [place] [address] Marissa Carney RN 08/30/2024 Orders Only [facility] Breast Surgery Catie Reid [address] [facility] [address] [place] [address] Marissa Haider MD S/P bilateral mastectomy (Primary Dx); Malignant neoplasm of lower-outer quadrant of left breast of female, estrogen receptor negative (CMS/HCC) 08/30/2024 Refill [facility] at [facility] [address] [place] [address] Dasia Otto, KAITLIN Malignant neoplasm of lower-outer quadrant of left breast of female, estrogen receptor negative (CMS/HCC) (Primary Dx) 08/29/2024 7:30 AM CDT - 08/29/2024 11:59 PM CDT Hospital Encounter [facility] [place] A [address] [facility] [address] [place] [address] Marissa Haider MD Discharge Disposition: Home or Self Care 08/29/2024 7:22 AM CDT Anesthesia Event [facility] Operating Room [address] [place] [address] Jackelyn Flores MD Hartig, Maya A, AA-C 08/29/2024 7:15 AM CDT - 08/29/2024 10:43 AM CDT Surgery [facility] Operating Room [address] [place] [address] Marissa Haider MD BREAST MASTECTOMY SIMPLE 08/29/2024 6:30 AM CDT - 08/29/2024 11:59 PM CDT Hospital Encounter [facility] Medicine [address] [facility] [address] [place] [address] Marissa Haider MD Discharge Disposition: Home or Self Care 08/29/2024 5:13 AM CDT - 08/30/2024 1:10 PM CDT Hospital Encounter [facility] [address] [address] Marissa Haider MD Malignant neoplasm of lower-outer quadrant of left breast of female, estrogen receptor negative (CMS/HCC) Discharge Disposition: Home or Self Care 08/26/2024 Orders Only [facility] Oncology and Hematology [facility] [address] [place] [address] Jacky Singh MD 08/26/2024 Abstract [facility] On[facility] and Hematology [facility] [address] [place] [address] Jacky Singh MD 08/25/2024 11:09 AM CDT - 08/25/2024 11:59 PM CDT Hospital Encounter [facility] A [address] [place] [address] Marissa Haider MD Discharge Disposition: Home or Self Care 08/25/2024 10:09 AM CDT - 08/25/2024 11:59 PM CDT Hospital Encounter [facility] A [address] [place] [address] Marissa Haider MD Discharge Disposition: Home or Self Care 08/22/2024 Orders Only [facility] Oncology and Hematology [facility] [address] [place] [address] Jacky Singh MD Malignant neoplasm of lower-outer quadrant of left breast of female, estrogen receptor negative (CMS/HCC) 08/18/2024 11:15 AM CDT Office Visit [facility] Oncology and Hematology - [place] [address] [place] [address] Jacky Singh MD Malignant neoplasm of lower-outer quadrant of left breast of female, estrogen receptor negative (CMS/HCC) (Primary Dx) 08/12/2024 Chart Note [facility] Oncology Patient Navigation [address] [place] [address] Marissa Carney RN 08/10/2024 Chart Note [facility] Oncology Patient Navigation [address] [place] [address] Marissa Carney RN 08/09/2024 Abstract [facility] and Hematology [facility] [address] [place] [address] Jacky Singh MD 08/08/2024 Orders Only [facility] Oncology and Hematology [facility] [address] [place] [address] Jacky Singh MD Malignant neoplasm of lower-outer quadrant of left breast of female, estrogen receptor negative (CMS/HCC) 08/04/2024 Chart Note [facility] Oncology Patient Navigation [address] [place] [address] Marissa Carney RN 07/26/2024 External Device Data STL ABSTRACTION Provider, Abstract 07/25/2024 Orders Only [facility] Oncology and Hematology [facility] [address] [place] [address] Jacky Singh MD Malignant neoplasm of lower-outer quadrant of left breast of female, estrogen receptor negative (CMS/HCC) from Last 3 Months Family History Medical History Relation Name Comments Cancer Brother 1 Jn Hong 2022 Large B cell lymphoma Colon Cancer Brother 1 Jn Pitts 2009 Cancer Brother 2 Chris Pitts 2022 lung can cer, brain cancer Lung Cancer Brother 2 Chris Hong brain & lung Stroke Brother 2 Chris Pitts 2022 Cancer Father Manuel Pitts gallbladder Heart Disease Father Manuel Pitts valve replac ed Hypertension Father Manuel Pitts multiple sibl ings also Pancreatic Cancer Father Manuel Pitts Cancer Mother Chantale Skin cancer Blood Clots Sister 1 Preeti Vickey leg blood clot Lung Cancer Sister 1 Preeti Vickey Cancer Sister 2 Leydi Valentino lung cancer 202 4 Cancer Sister 3 Sally Leyden skin cancer Breast Cancer Neg Hx Ovarian Cancer Neg Hx Relation Name Status Comments Brother 1 Jn Pitts Brother 2 Chris Pitts Alive Father Manuel Pitts Mother Chantale Sister 1 Preeti Hurd Alive Sister 2 Leydi Avelar Sister 3 Sally Arroyo Social History Tobacco Use Types Packs/Day Years Used Date Smoking Tobacco: Never Smokeless Tobacco: Never Tobacco Cessation:Counseling Given: Not Answered Alcohol Use Standard Drinks/Week Comments Not Currently [...] on file Legal Sex 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 Gender Identity Not on file Sexual Orientation Not on file Last Filed Vital Signs Vital Sign Reading Time Taken Comments Blood Pressure 129/81 10/19/2024 3:32 PM CDT Pulse 74 10/19/2024 3:32 PM CDT Temperature 37 C (98.6 F) 10/19/2024 3:32 PM CDT Respiratory Rate 15 10/19/2024 3:32 PM CDT Oxygen Saturation 98% 10/19/2024 3:32 PM CDT Inhaled Oxygen Concentration - - Weight 76.9 kg (169 lb 9.6 oz) 10/19/2024 3:32 P M CDT Height 157.5 cm (5' 2) 09/13/2024 12:34 PM CDT Body Mass Index 31.02 09/13/2024 12:34 PM CDT Plan of Treatment Upcoming Encounters Date Type Department Care Team (Late st Contact Info) Description 10/25/2024 11:15 AM CDT Appointment [facility] Integrative Medicine and Therapy Services [facility] [address] [place] [address] Alyssia Sims, Physical Therapist 10/31/2024 2:00 PM CDT Office Visit [facility] Plastic Surgery at the [facility] Medicine [address] [place] [address] Theodore Jackson MD [address] [facility] [address] [place], [place] [phone] 11/17/2024 10:00 AM CDT Office Visit [facility] Oncology and Hematology - [place] [address] [facility] [address] [place] [address] Jacky Singh MD [address] [facility] [address] [place] [address] 01/10/2025 12:00 PM CDT Appointment [facility] Catie Reid [address] [place] [address] [place] [address] [facility] [address] [place] [address] 01/10/2025 1:15 PM CDT Office Visit [facility] Breast Surgery Catie [address]as [address] [facility] [address] [place] [address] [place] [address] [facility] [address] [place] [address] Health Maintenance Due Date Last Done Comments Pre-Diabetes and Diabetes Screening 1955 DTAP/TDAP/TD VACCINES (1 - Tdap) 1975 FIT-DNA Q 3 years 2001 FIT/FOBT Q 1 year 2001 Flex Sig/CT Colonography Q 5 years 2001 PNEUMOCOCCAL VACCINE 50+ YEA RS (1 of 1 - PCV) 2006 ZOSTER VACCINE (1 of 2) 2006 OSTEOPOROSIS SCREENING 2021 INFLUENZA VACCINE (#1) 2023 COVID-19 Vaccine (3 - 2023-2 5 season) 2024 07/24/2020, 06/26/2020 BREAST CANCER SCREENING 02/04/2025 02/05/20 24, 01/15/2024, 01/06/2023, Additional history exists COLORECTAL SCREENING 03/26/2030 03/26/2020, 03/26/2020, 09/07/2014, Additional history exists Colorectal Cancer Screening 03/26/2030 RSV VACCINE (60+ or ) (1 - 1-dose 75+ series) 2031 Medical Devices Implanted Type Area Attic Blower Device Identifier Shelf Expiration Date Model / Serial / Lot Fire Prevention Captain Ligaclip InferX Med Msm20 - [id number] Implanted:Qty: 1 on 08/29/2024 by Marissa Haider MD at [facility] Clip Left: Breast [employer] [id number] 05/24/2029 [id number] / / [id number] Fire Prevention Captain Ligaclip Multi Med [facility] - [id number] Implanted:Qty: 1 on 08/29/2024 by Marissa Haider MD at [facility] Clip Left: Breast [employer] [id number] 10/22/2028 [id number] / / [id number] Natrelle Tissue Coastal/Harbor [employer] Officer With Suture Tabs Implanted:Qty: 1 on 08/29/2024 by Theodore Jackson MD at [facility] Mammary Left: Breast [employer]- MEDICAL [id number] 11/17/2028 133S-FV-1 4-T / [id number] / [id number] Description:REQ [id number] Port Powerport Clearvue 8fr Mri [id number] - [id number] Implanted:Qty: 1 on 03/30/2024 by Marissa Haider MD at [facility] Port Right: Chest BARD KAROLINA VASC 08/22/2025 [id number] / / [id number] Allograft Dermis Cortiva [id number] 1mm [id number] - [id number] Implanted:Qty: 1 on 08/29/2024 by Theodore Jackson MD at [facility] Tissue Left: Breast RTI BIOLOGICX 08/26/2025 [id number] / [id number] / [id number] Left Knee Replacement And Teeth Impants Procedures Procedure Name Priority Date/Time Associated Diagnosis Comments CBC WITH DIFFERENTIAL Routine 10/18/2024 3:39 PM CDT COMPREHENSIVE METABOLIC PANEL Routine 10/18/2024 3:17 PM CDT CBC WITH DIFFERENTIAL Routine 09/22/2024 12:20 PM CDT BASIC METABOLIC PANEL Routine 09/22/2024 9:55 AM CDT TELEMETRY REPORT 09/02/2024 12:4 4 PM CDT CREATININE Timed Study 08/29/2024 3:24 PM CDT MAMMO BREAST SPECIMEN RT Routine 08/29/2024 11:35 AM CDT Abnormal mammogram PATHOLOGY Pathology 08/29/2024 9:16 AM CDT Malignant neoplasm of lower-outer quadrant of left breast of female, estrogen receptor negative (CMS/HCC) HER2-positive carcinoma of left breast (CMS/HCC) NE ANES INSERT ENDOTRACHEAL AIRWAY Routine 08/29/2024 7:45 AM CDT NE TISSUE ASSISTANT PRESSMAN PLACEMENT BREAST RECONSTRUCTION 08/29/2024 7:15 AM CDT Malignant neoplasm of lower-outer quadrant of left breast of female, estrogen receptor negative (CMS/HCC) HER2-positive carcinoma of left breast (CMS/HCC) NE INTRAOP SENTINEL LYMPH NODE ID W/DYE INJECTION 08/29/2024 7:15 AM CDT Malignant neoplasm of lower-outer quadrant of left breast of female, estrogen receptor negative (CMS/HCC) HER2-positive carcinoma of left breast (CMS/HCC) NE BX/EXC LYMPH NODE OPEN SUPERFICIAL 08/29/2024 7:15 AM CDT Malignant neoplasm of lower-outer quadrant of left breast of female, estrogen receptor negative (CMS/HCC) HER2-positive carcinoma of left breast (CMS/HCC) NE INJ RADIOACTIVE TRACER FOR ID OF SENTINEL NODE 08/29/2024 7:15 AM CDT Malignant neoplasm of lower-outer quadrant of left breast of female, estrogen receptor negative (CMS/HCC) HER2-positive carcinoma of left breast (CMS/HCC) NE BX/EXC LYMPH NODE OPEN DEEP AXILLARY NODE 08/29/2024 7:15 AM CDT Malignant neoplasm of lower-outer quadrant of left breast of female, estrogen receptor negative (CMS/HCC) HER2-positive carcinoma of left breast (CMS/HCC) NE MASTECTOMY SIMPLE COMPLETE 08/29/2024 7:15 AM CDT Malignant neoplasm of lower-outer quadrant of left breast of female, estrogen receptor negative (CMS/HCC) HER2-positive carcinoma of left breast (CMS/HCC) NM INJ SENTINEL NODE Routine 08/29/2024 6:40 AM CDT Malignant neoplasm of lower-outer quadrant of left breast of female, estrogen receptor negative (CMS/HCC) HER2-positive carcinoma of left breast (CMS/HCC) MAMMO US GUIDED BREAST LOCAL Routine 08/25/2024 1:14 PM CDT Malignant neoplasm of lower-outer quadrant of left breast of female, estrogen receptor negative (CMS/HCC) HER2-positive carcinoma of left breast (CMS/HCC) MAMMO POST PROCEDURE MAMMO LEFT Routine 08/25/2024 12:47 PM CDT Malignant neoplasm of lower-outer quadrant of left breast of female, estrogen receptor negative (CMS/HCC) HER2-positive carcinoma of left breast (CMS/HCC) BASIC METABOLIC PANEL Routine 08/25/2024 11:54 AM CDT MAMMO DIAG UNI LEFT 3D TAYLOR W OR WO CAD Routine 02/05/2024 8:21 AM CDT Abnormal mammogram from Last 3 Months or Most Recently Relevant to Health Maintenance Results * CBC WITH DIFFERENTIAL (10/18/2024 3:39 PM CDT) Only the most recent of2 resultswithin the time period is included. Blood Jacky Singh MD HEMATOLOGY ORDERABLES Final Res ult * COMPREHENSIVE METABOLIC PANEL (10/18/2024 3:17 PM CDT) Blood Jacky Singh MD CHEMISTRY ORDERABLES Final Resu lt * BASIC METABOLIC PANEL (09/22/2024 9:55 AM CDT) Only the most recent of2 resultswithin the time period is included. Blood us Jacky Singh MD CHEMISTRY ORDERABLES Final Resu lt * TELEMETRY REPORT (09/02/2024 12:44 PM CDT) us Provider Scanning ECG ORDERABLES Final Result * CREATININE (08/29/2024 3:24 PM CDT) CREATININE 0.92 0.51 - 0.95 mg/dL 08/29/2024 4:37 PM CDT [facility] [employer] [facility] GFR >60 >=60 mL/min/1.7 3 sq meter 08/29/2024 4:37 PM CDT [facility] [employer] [facility] Comment:eGFR calculated with 2020 CKD-EPI equation. Vegetarian diet, extremely high or low muscle mass, and may affect results. Cystatin C with Glomerular Filtration Rate is a suitable alternative for these patients. Blood Venipuncture / Unknown 08/29/2024 3:24 PM CDT 08/29/2024 3:57 PM CDT Theodore Jackson MD CHEMISTRY ORDERABLES Fin al Result [facility]# [id number] 5 [facility] DIVYA LOYOLA [id number] * MAMMO BREAST SPECIMEN RT (08/29/2024 11:35 AM CDT) Anatomical Region Laterality Modality Breast Right Mammography 08/29/2024 11:3 5 AM CDT Impressions 08/29/2024 12:19 PM CDT IMPRESSION: The tissue sample contains the previous of biopsied lymph node and the biopsy marker. Dictation location: [facility] Narrative 08/29/2024 12:19 PM CDT SURGICAL SPECIMEN RADIOGRAPH OF THE LEFT BREAST EXAM DATE: 08/29/2024 HISTORY: Initial core biopsy of the left breast performed in January 2024 revealed invasive ductal carcinoma. The patient then underwent breast MRI which revealed an additional smaller mass more posteriorly in the lateral left breast. Subsequent ultrasound-guided core biopsy of the smaller mass in the posterior left breast and biopsy of a left axillary lymph node in February last year were both positive for malignancy. Wireless localization of the lymph node was performed on 08/25/2024 for intraoperative localization. FINDINGS: The provided specimen radiograph contains the biopsy marker and surgical clips. There is a small nodule located between the biopsy clip and the surgical clips which likely corresponds to the previously biopsied lymph node. Procedure Note Brain Ochoa MD - 08/29/2024 SURGICAL SPECIMEN RADIOGRAPH OF THE LEFT BREAST EXAM DATE: 08/29/2024 HISTORY: Initial core biopsy of the left breast performed in January 2024 revealed invasive ductal carcinoma. The patient then underwent breast MRI which revealed an additional smaller mass more posteriorly in the lateral left breast. Subsequent ultrasound-guided core biopsy of the smaller mass in the posterior left breast and biopsy of a left axillary lymph node in February last were both positive for malignancy. Wireless localization of the lymph node was performed on 08/25/2024 for intraoperative localization. FINDINGS: The provided specimen radiograph contains the biopsy marker and surgical clips. There is a small nodule located between the biopsy clip and the surgical clips which likely corresponds to the previously biopsied lymph node. IMPRESSION: The tissue sample contains the previous of biopsied lymph node and the biopsy marker. Dictation location: [facility] Marissa Haider MD MAMMO ORDERABLES Final R esult * PATHOLOGY (08/29/2024 9:16 AM CDT) CASE REPORT Surgical Pathology Report Case: [id number] Authorizing Provider: Marissa Haider MD Collected: 08/29/2024 09:16 AM Ordering Location: [facility] Received: 08/29/2024 12:03 PM Operating Room Pathologist: Belle Garcia MD Specimens: A) - Breast, left, LEFT BREAST; SHORT STITCH SUPERIOR; LONG STITCH LATERAL B) - [place] Lymph Node, LEFT AXILLARY SENTINEL LYMPH NODES 5 3:31 PM CDT [facility] FINAL DIAGNOSIS Breast, left, mastectomy: - Status post neoadjuvant chemotherapy with pathologic complete response; no residual tumor identified. - Pathologic stage: ypT0, pN0(sn)). - Biopsy site identified in lower outer quadrant. - Tumor bed identified in lower outer quadrant, associated with biopsy site. - Fibrocystic change. - Fibroadenoma. - Left nipple negative. - Biomarker results from prior core biopsies ([id number], [id number]): ER 0/8, NE 0/8, HER2 IHC 3+. [place] lymph node, left axillary, excision: - No tumor identified in five lymph nodes (0/5). - Largest lymph node with post-biopsy reactive changes. 3:31 PM CDT [facility] at 1531 CDT GROSS DESCRIPTION The specimens are received in two containers, each labeled Anirudh Castro. Received in the first container additionally labeled left breast short stitch superior long stitch lateral is a 588 g left mastectomy measuring 21.5 cm from medial to lateral, 18.5 cm from superior to inferior, and 6.5 cm from anterior to posterior. The specimen is received with a short suture that designates superior and a long suture that designates lateral. The anterior aspect is partially surfaced by an 8.5 x 3.4 cm portion of pink-vazquez skin containing a 1 x 0.2 cm everted nipple. The specimen is inked as follows: Anterior-blue, posterior-black, and lateral skin-yellow. The specimen is sectioned from medial to lateral to show a 0.6 x 0.5 x 0.5 cm pink-mayfield, firm nodule located within the lower outer quadrant, 1.3 cm from the posterior margin and 2.6 cm from the anterior margin. Surrounding the nodule is an area of fibrous tissue measuring 2.6 x 2.6 x 1.2 cm, 1.7 cm from the posterior margin and 1.1 cm from the anterior margin. The area contains a ribbon shaped biopsy clip. Located 1.1 cm towards lateral from the previously mentioned area is a corkscrew biopsy clip, 0.4 cm from the posterior margin and 1.7 cm from the anterior margin. No palpable mass is identified within this area. If the areas are contiguous, the greatest dimension is 3.2 cm. [employer] Guid[employer] Counselor sections are submitted in cassettes labeled A1-section immediately towards lateral from second biopsy cavity; A2 and A3-second biopsy cavity, submitted entirely sequentially from lateral to medial with anterior and posterior margins; A4-section between biopsy cavity; A5 through J64-bwttpjy area, submitted entirely sequentially from lateral to medial (7-8: Nodule with closest anterior and posterior margins; 8-9: Bisected); Y06-pyyhssr immediately towards medial from fibrous area; O72-cdytf inner quadrant; V55-wefzf inner quadrant; R30-fdsne outer quadrant; R27-ceqym outer quadrant; L59-goviyz. Received in the second container additionally labeled left axillary sentinel lymph node is a 6.4 x 2.9 x 1.9 cm irregular fragment of vazquez-yellow, lobulated adipose tissue that contains multiple lymph nodes ranging from 0.8 to 2.4 cm in greatest dimension. The lymph nodes are scanned using Faxitron imaging and no biopsy clip is identified. The lymph nodes are submitted entirely in cassettes labeled B1-2 lymph nodes, intact; B2 through B4-1 lymph node in each cassette, serially sectioned; B5 through B7-1 lymph node, serially sectioned. SMB 3:31 PM [facility] [employer] [facility] MICROSCOPIC DESCRIPTION The slides are labeled [id number] and Anirudh Castro. The left mastectomy contains a biopsy site with foreign body reaction in the lower outer quadrant, which is further surrounded by a zone of fibrosis with sparse chronic inflammation and hemosiderin corresponding to a tumor bed. No residual invasive or in situ ductal carcinoma is identified in association with the biopsy site, the tumor bed, or in the additional sampled sections of the breast parenchyma. Pancytokeratin immunostain applied to a section of the tumor bed is negative for infiltrating malignant epithelial cells. The histologic features represent a complete pathologic tumor response in the setting of neoadjuvant chemotherapy. The remaining sampled breast tissue displays fibrocystic change with focal duct ectasia, and a fibroadenoma. The left nipple section is negative. There is no evidence of metastatic carcinoma in five left axillary sentinel lymph nodes based on examination of multiple H&E-stained sections and by cytokeratin cocktail immunohistochemical stains (0/5). The largest lymph node is notable for a biopsy site with reactive changes. 5 3:31 PM [facility] [employer] [facility] OPERATIVE PROCEDURE 1: BREAST MASTECTOMY SIMPLE 2: SENTINEL LYMPH NODE BIOPSY MAPPING 3: BREAST TISSUE ASSISTANT PRESSMAN INSERTION 5 3:31 PM [facility] CLINICAL INFORMATION Malignant neoplasm of lower-outer quadrant of left breast of female, estrogen receptor negative [C50.512, Z17.1] HER2-positive carcinoma of left breast [C50.912, Z17.31] 5 3:31 PM [facility] SYNOPTIC REPORT INVASIVE CARCINOMA OF THE BREAST: Resection INVASIVE CARCINOMA OF THE BREAST: RESECTION - All Specimens 8th Edition - Protocol posted: 11/11/2023 SPECIMEN Procedure: Total mastectomy Specimen Laterality: Left TUMOR Tumor Site: Lower outer quadrant Histologic Type: No residual invasive carcinoma Tumor Size: No residual invasive carcinoma Ductal Carcinoma In Situ (DCIS): Not identified Lobular Carcinoma In Situ (LCIS): Not identified Lymphatic and / or Vascular Invasion: Not identified Dermal Lymphatic and / or Vascular Invasion: No skin present Microcalcifications: Not identified Treatment Effect in the Breast: No residual invasive carcinoma is present in the breast after presurgical therapy Treatment Effect in the Lymph Nodes: No lymph node metastases and no fibrous scarring or histiocytic aggregates in the nodes REGIONAL LYMPH NODES Regional Lymph Node Status: : All regional lymph nodes negative for tumor Total Number of Lymph Nodes Examined (sentinel and non-sentinel): 5 Number of [place] Nodes Examined: 5 pTNM CLASSIFICATION (AJCC 8th Edition) Reporting of pT, pN, and (when applicable) pM categories is based on information available to the pathologist at the time the report is issued. As per the AJCC (Chapter 1, 8th Ed.) it is the managing physician's responsibility to establish the final pathologic stage based upon all pertinent information, including but potentially not limited to this pathology report. Modified Classification: y pT Category: pT0 pN Category: pN0 N Suffix: (sn) SPECIAL STUDIES Estrogen Receptor (ER) Status: Negative Progesterone Receptor (PgR) Status: Negative HER2 (by immunohistochemistry): Positive (Score 3+) Percentage of Cells with Uniform Intense Complete Membrane Staining: Slide not available Testing Performed on 5 3:31 PM [facility] COMMENT Special stain, immunohistochemical, and/or in situ hybridization results are interpreted with controls that demonstrate appropriate staining reactions. Note on use of immunohistochemistry reagents and in situ hybridization probes: These tests were developed and their performance characteristics determined by [facility], Department of Laboratory Medicine. It has not been cleared or approved by the U.S. Food and Drug Administration. The FDA has determined that such clearance or approval is not necessary. The test is used for clinical purposes. It should not be regarded as investigational or for research. This laboratory is certified to perform high complexity testing. Frozen section/operating room consultation, gross examination and dissection, and case sign out may have been performed in part or completely in the following laboratories: [facility], CLIA #[id number] [address] [place] [address] [facility], [place] #[id number] [address] [place] [address] [facility], CLIA #[id number] [address] [place] [address] This report was created with the [employer] voice-activated dictation system. Inherent to this system is the possibility of syntax, grammar, punctuation and other errors that could impact the interpretation of the report. If there are interpretative questions about aspects of this report, please contact the performing pathologist. 3:31 PM CDT [facility] Tissue LEFT BREAST STRUCTURE / Unknown Collection / Unknown 08/29/2024 9:16 AM CDT 08/29/2024 12:03 PM CDT Tissue specimen (specimen) ([place] Lymph Node) Collection / Unknown 08/29/2024 9:25 AM CDT 08/29/2024 12:03 PM CDT Marissa Haider MD PATHOLOGY/CYTOLOGY ORDER VITOR Final Result [id number] [address] [facility] [place] [address] * NE ANES INSERT ENDOTRACHEAL AIRWAY (08/29/2024 7:45 AM CDT) Narrative Gala Sanchez AA-C - 08/29/2024 7:45 AM CDT Gala Sanchez AA-C 08/29/2024 7:50 AM Airway Date/Time: 08/29/2024 7:45 AM Location: OR Plan: routine intubation Patient Identity Confirmed by: Verbally with patient and armband Staffing Performed: MEDICAL STAFFING COORDINATOR/CAA Authorized by: Jackelyn Flores MD Performed by: Gala Sanchez AA-C Indications and Patient Condition: Indications for Airway Management: Anesthesia Sedation Level: general anesthesia Preoxygenated: yes Patient Position: Appropriate position w/cervical spine immobilization maintained throughout the procedure Mask Difficulty Assessment: 2 - vent by mask + OA or adjuvant +/- NMBA Oral Airway: 90mm Plan to extubate at end of case: Yes Final Airway Details: Final Airway Type: Endotracheal airway ETT Cuffed: Yes Cuff Volume (mL): 5 Technique Used for Successful ETT Placement: Video laryngoscopy Devices/Methods Used in Placement: Cricoid pressure Blade Size: 3 Insertion Site: Oral ETT Size (mm): 7.0 Video Laryngoscopy Devices: GlideScope Measured from: Teeth ETT to Teeth (cm): 21 Tube secured with: Tape Placement Verified by: auscultation, end tidal CO2 and chest rise Cormack-Lehane Classification: Grade I - full view of glottis Number of Attempts at Approach: 1 Additional Procedure Information: atraumatic and dentition unchanged us Jackelyn Flores MD PROCEDURE/MINOR SURGICAL ORDERA BLES Final Result * NM INJ SENTINEL NODE (08/29/2024 6:40 AM CDT) Anatomical Region Laterality Modality Nuclear Medicine 08/29/2024 7:29 AM CDT Impressions 08/29/2024 8:02 AM CDT IMPRESSION: Lymphoseek injected for sentinel lymph node localization. No images acquired. Dictated by Dr. Brain Beasley MD DICTATION LOCATION: 1 Narrative 08/29/2024 8:02 AM CDT NM SENTINEL LYMPH NODE INJECTION ONLY DATE: 08/29/2024 6:40 AM HISTORY: Invasive ductal carcinoma involving the lower outer quadrant of the left breast. PROCEDURE: Skin preparation with Chloraprep wipes. Technetium Lymphoseek was injected as 2 intradermal injections around the periareolar region. RADIOPHARMACEUTICAL: 0.48 mCi technetium-99m Lymphoseek FINDINGS: Patient injected however no image was acquired. INCIDENTAL FINDINGS: None. Procedure Note Brain Beasley MD - 08/29/2024 NM SENTINEL LYMPH NODE INJECTION ONLY DATE: 08/29/2024 6:40 AM HISTORY: Invasive ductal carcinoma involving the lower outer quadrant of the left breast. PROCEDURE: Skin preparation with Chloraprep wipes. Technetium Lymphoseek was injected as 2 intradermal injections around the periareolar region. RADIOPHARMACEUTICAL: 0.48 mCi technetium-99m Lymphoseek FINDINGS: Patient injected however no image was acquired. INCIDENTAL FINDINGS: None. IMPRESSION: Lymphoseek injected for sentinel lymph node localization. No images acquired. Dictated by Dr. Brain Beasley MD DICTATION LOCATION: 1 us Marissa HOLLIS ORDERABLES Final Re sult * MAMMO US GUIDED BREAST LOCAL (08/25/2024 1:14 PM CDT) Anatomical Region Laterality Modality Breast N/A Mammography Impressions 08/25/2024 11:52 AM CDT IMPRESSION: 1. Technically successful ultrasound-guided left axillary RFID localization. 2. Unique RFID tag number: [id number] Narrative 08/25/2024 11:52 AM CDT LEFT AXILLA RADIOFREQUENCY LOCALIZER PLACEMENT UTILIZING ULTRASOUND GUIDANCE UNILATERAL LEFT FULL-FIELD DIGITAL DIAGNOSTIC MAMMOGRAM DATE: 08/25/2024 CLINICAL HISTORY: Biopsy-proven malignancy at two sites in the left breast and biopsy-proven left axillary laurence metastatic disease status post neoadjuvant chemotherapy. The patient presents for needle localization of the biopsy-proven laurence metastatic disease prior to bilateral mastectomy. COMPARISON: Prior mammograms, most recently post clip mammogram on 03/23/2024. Left breast ultrasound on 03/23/2024 and ultrasound-guided left breast biopsy on 03/23/2024. Breast MR dated 2024. PROCEDURE AND FINDINGS: The procedure was discussed with the patient and informed consent was obtained. The biopsy marker in the left axilla at the site of biopsy-proven laurence metastatic disease was reidentified. After sterile preparation of the skin, 1% lidocaine was utilized for local anesthesia. Under ultrasound guidance, the needle applicator was advanced into the area of interest from an inferolateral approach. The radiofrequency identification tag was then inserted and left in place. The patient tolerated the procedure well without evidence of immediate complication. A two-view full-field digital diagnostic mammogram demonstrates the RFID tag to be in adequate position adjacent to the biopsy marker. us Marissa Haider MD MAMMO ORDERABLES Edited Result - Final * MAMMO POST PROCEDURE MAMMO LEFT (08/25/2024 12:47 PM CDT) Anatomical Region Laterality Modality Breast Left Mammography 08/25/2024 11:0 9 AM CDT Impressions 08/25/2024 11:52 AM CDT IMPRESSION: 1. Technically successful ultrasound-guided left axillary RFID localization. 2. Unique RFID tag number: [id number] Narrative 08/25/2024 11:52 AM CDT LEFT AXILLA RADIOFREQUENCY LOCALIZER PLACEMENT UTILIZING ULTRASOUND GUIDANCE UNILATERAL LEFT FULL-FIELD DIGITAL DIAGNOSTIC MAMMOGRAM DATE: 08/25/2024 CLINICAL HISTORY: Biopsy-proven malignancy at two sites in the left breast and biopsy-proven left axillary laurence metastatic disease status post neoadjuvant chemotherapy. The patient presents for needle localization of the biopsy-proven laurence metastatic disease prior to bilateral mastectomy. COMPARISON: Prior mammograms, most recently post clip mammogram on 03/23/2024. Left breast ultrasound on 03/23/2024 and ultrasound-guided left breast biopsy on 03/23/2024. Breast MR dated 2024. PROCEDURE AND FINDINGS: The procedure was discussed with the patient and informed consent was obtained. The biopsy marker in the left axilla at the site of biopsy-proven laurence metastatic disease was reidentified. After sterile preparation of the skin, 1% lidocaine was utilized for local anesthesia. Under ultrasound guidance, the needle applicator was advanced into the area of interest from an inferolateral approach. The radiofrequency identification tag was then inserted and left in place. The patient tolerated the procedure well without evidence of immediate complication. A two-view full-field digital diagnostic mammogram demonstrates the RFID tag to be in adequate position adjacent to the biopsy marker. us Marissa Haider MD MAMMO ORDERABLES Final R esult * (ABNORMAL) MAMMO 3D [facility] DIAGNOSTIC UNI LT W OR WO CAD (02/05/2024 8:21 AM CDT) Anatomical Region Laterality Modality Breast Left Mammography 02/05/2024 8:21 AM CDT Impressions 02/05/2024 8:59 AM CDT IMPRESSION: 1. Suspicious 9 mm mass in the left breast at the 4:00 axis. Ultrasound-guided needle core biopsy is recommended for tissue diagnosis. OVERALL FINAL ASSESSMENT: BI-RADS CATEGORY 5: Highly suggestive of malignancy. DICTATION LOCATION: Location [address] [place], [place] [address]/05/2024 8:59 AM CDT EXAM: LEFT DIGITAL DIAGNOSTIC MAMMOGRAPHY WITH TOMOSYNTHESIS AND CAD. LIMITED LEFT BREAST ULTRASOUND Exam date: 02/05/2024 INDICATION: Abnormal screening mammogram 01/15/2024 with an asymmetry in the left breast. COMPARISON: 01/15/2024 mammography and older. BREAST COMPOSITION: There are scattered areas of fibroglandular density. MAMMOGRAM: With additional imaging, there is persistence of the mass in the lower outer left breast. On mammography, this mass is spiculated measuring approximately 15 mm. There is an asymmetry within the upper- outer left breast. ULTRASOUND: Ultrasound was performed for further characterization. At the 4:00 axis, 5 cm from the nipple, there is an irregular hypoechoic shadowing 9 mm x 8 mm x 8 mm mass, suspicious for malignancy. In the upper-outer quadrant of the left breast at the 1:00 axis, 5 cm from the nipple, there is a cyst measuring 4 mm x 2 mm. No abnormal shadowing. Imaging of the left axilla demonstrates morphologically normal lymph nodes. Procedure Note Yashira Eason MD - 02/05/2024 EXAM: LEFT DIGITAL DIAGNOSTIC MAMMOGRAPHY WITH TOMOSYNTHESIS AND CAD. LIMITED LEFT BREAST ULTRASOUND Exam date: 02/05/2024 INDICATION: Abnormal screening mammogram 01/15/2024 with an asymmetry in the left breast. COMPARISON: 01/15/2024 mammography and older. BREAST COMPOSITION: There are scattered areas of fibroglandular density. MAMMOGRAM: With additional imaging, there is persistence of the mass in the lower outer left breast. On mammography, this mass is spiculated measuring approximately 15 mm. There is an asymmetry within the upper- outer left breast. ULTRASOUND: Ultrasound was performed for further characterization. At the 4:00 axis, 5 cm from the nipple, there is an irregular hypoechoic shadowing 9 mm x 8 mm x 8 mm mass, suspicious for malignancy. In the upper-outer quadrant of the left breast at the 1:00 axis, 5 cm from the nipple, there is a cyst measuring 4 mm x 2 mm. No abnormal shadowing. Imaging of the left axilla demonstrates morphologically normal lymph nodes. IMPRESSION: 1. Suspicious 9 mm mass in the left breast at the 4:00 axis. Ultrasound-guided needle core biopsy is recommended for tissue diagnosis. OVERALL FINAL ASSESSMENT: BI-RADS CATEGORY 5: Highly suggestive of malignancy. DICTATION LOCATION: [address] Mckinley Jordan MD MAMMO ORDERABLES Final Resu lt from Last 3 Months or Most Recently Relevant to Health Maintenance Insurance MEDICARE PART A AND B [facility] MEDICARE PART A AND B [facility] RX P[employer]uit Vascular Medicare Part D RX [employer] (INTERNAL) [facility] Internal Plans Advance Directives For more information, please contact: [phone] * Full Code (Latest Code Status on File) Date Activated Date Inactivated Comments 08/29/2024 11:35 AM 08/30/2024 3:11 PM * Full Code Date Activated Date Inactivated Comments 08/29/2024 8:13 AM 08/29/2024 11:35 AM Care Teams Surgical Instrument Repair Specialist Relationship Specialty Start Date End Date Mckinley Jordan MD [address] [place] [address] GIL Dowell [id number] PCP - General Family Practice 11/13/18
--- OUTSIDE RECORDS SUMMARY | 2024-10-24 10:37 | XMS_ITS | Clinical Summary ---
Author Organization [facility] Address [address] [address] Care Team Providers Care Swiss Type Screw Machine Operator Name Role Phone Mckinley Jordan MD Primary Care Provider [phone] Allergies Active Allergy Reactions Criticality Noted Date Comments Penicillins Rash Medium 03/26/2020 Sulfa (Sulfonamide Antibiotics) Hives Medium 11/22 Medications buPROPion XL (WELLBUTRIN XL) 150 mg 24 hr tablet TK 1 T PO QAM 0 Active lisinopril-hydr oCHLOROthiazide (ZESTORETIC) 20-25 mg per tablet TK 1 T PO QD 0 Active levothyroxine sodium (TIROSINT) 50 mcg capsule Take 50 mcg by mouth warehouse freight handler before breakfast Active metoprolol tartrate (LOPRESSOR) 50 mg immediate release tablet TK 1 T PO BID 0 Active Active Problems No known active problems Surgical History Surgery Date Site/Laterality Comments KNEE ARTHROSCOPY Bilateral LAPAROSCOPIC CHOLECYSTECTOMY 05/25/2012 - 05/24/2013 COLONOSCOPY Medical History Medical History Date Comments Depression HTN (hypertension) LORENA (obstructive sleep apnea) Hypothyroidism Family History Medical History Relation Name Comments Colon cancer Brother Relation Name Status Comments Brother Social History Tobacco Use Types Packs/Day Years [...] on file Legal Sex Female 3:03 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 Gender Identity Not on file Sexual Orientation Not on file Obstetrics History Last Filed Vital Signs Vital Sign Reading [...] 02/14/2023 3:27 PM CDT Plan of Treatment Health Maintenance Due Date Last Done Comments Breast Cancer Screening-Mammogram 1955 Depression Screening 1955 Hepatitis C Screening 1955 Osteoporosis Screening-Bone Density Scan 1955 DTaP/Tdap/Td Vaccine (1 - Tdap) 1967 Hepatitis B Screening 1974 Pneumococcal vaccine 65+ (1 of 1 - PCV) 2006 Well Visit 65+ 2021 Fall Risk Assessment 03/26/2021 03/26/2020 Covid-19 Vaccine (3 - 2023-2 5 season) 2024 07/24/2020, 06/26/2020 Influenza Vaccine (Season Ended) 2025 05/13/2022, 03/05/2021, 06/15/2020, Additional history exists Colon Cancer Screening-Colonoscopy 03/26/20302019 Zoster Vaccine Completed 02/02/2021, 11/30/2020 Procedures Procedure Name Priority Date/Time Associated Diagnosis Comments COLONOSCOPY 03/26/2020 2:18 PM APPLICATION INTEGRATION SPECIALIST from Last 3 Months or Most Recently Relevant to Health Maintenance Results * COLONOSCOPY (03/26/2020 2:18 PM APPLICATION INTEGRATION SPECIALIST) Anatomical Region Laterality Modality Other Narrative Procedure Note Jose Zambrano MD PhD - 03/26/2020 2:18 PM CST ENDOSCOPY LAB Patient Name: Anirudh Castro Procedure Date: 03/26/2020 2:18 PM Date of : 1955 Admit Type: Outpatient Age: 65 Gender: Female Attending MD: Jose Zambrano MD,PHD Room: [facility] ENDOSCOPY ROOM 03 Note Status: Finalized Procedure: [...] Thescope was passed under direct vision. The [id number] introduced through the anus and advanced to theterminal ileum. The colonoscopy was performed withoutdifficulty. The patient tolerated the procedure well. The qualityof the bowel preparation was excellent. The quality of the bowel preparation was evaluated using the BBPS ([place] Bowel Preparation Scale) with scores of: Right [...] hours - Please call the Nurse Coordinator: [phone]. After hours, evening, nights, weekends and holidays - Please call the hospital methane gas collection system operator at and ask for the GI fellow director money. Attending Participation: I personally performed the entire procedure. Electronically signed by Jose Zambrano MD. Jose Zambrano MD, PHD 03/26/2020 2:37:05 PM Number of Addenda: 0 Note Initiated On: 03/26/2020 2:18 PM Jose Zambrano MD PhD ENDOSCOPY PROCEDURES Edit ed Result - Final from Last 3 Months or Most Recently Relevant to Health Maintenance Insurance [facility] ACCESS CHOICE MEDICARE [facility] MEDICARE MEDICARE [employer] Advance Directives For more information, please contact: [phone] * Full Code (Latest Code Status on File) Date Activated Date Inactivated Comments 03/26/2020 12:45 PM 03/26/2020 7:38 PM Care Teams Swiss Type Screw Machine Operator Relationship Specialty Start Date End Date Mckinley Jordan MD [address] [place] [id number] PCP - General Family Medicine 02/14/23
[2024-10-24] MEDS: PERFLUTREN LIPID MICROSPHERES 1.5 ML VIAL DILUTED TO 10 ML TOTAL VOLUME IV PUSH (10:50)
--- NOTE | 2024-10-24 11:22 | IVDEFINITY ---
Prior to administration of IV Definity the patient was educated on the risks and benefits of the imaging enhancing agent including potential adverse side effects. The patient verbalized understanding. Allergies were verified. No exclusion criteria were identified and at least one of the following inclusion criteria were met: 1) physician request, 2) patient technically difficult to image (per the [place] [employer] guidelines of two or more segments not discernable within the apical view), or 3) questionable left ventricular function. ?
== END 2024-10-24 09:49 | disposition home or self-care (01) ==
LOC: ANHCARD 09:50
PROVIDERS: PCP Family Medicine; Visit Provider Internal Medicine Hematology & Oncology
DX: Z51.11 Encounter for antineoplastic chemotherapy (principal); C50.512 Malignant neoplasm of lower-outer quadrant of left female breast; Z17.1 Estrogen receptor negative status [ER-]; I34.0 Nonrheumatic mitral (valve) insufficiency; I36.1 Nonrheumatic tricuspid (valve) insufficiency
CPT/HCPCS: C8929; Q9957

== ENCOUNTER 2024-11-17 09:28 | Outpatient (CLI) | payer MEDICARE, SELFPAY ==
[2024-11-17 11:32] LABS: Free T4 Free Thyroxine 1.11 ng/dL (0.78-2.19)
[2024-11-17 11:45] LABS: Thyroid Stimulating Hormone 0.825 uIU/mL (0.465-4.680)
== END 2024-11-17 09:29 | disposition home or self-care (01) ==
LOC: ANHLAB 09:31
PROVIDERS: PCP Family Medicine; Visit Provider Family Medicine
DX: E03.9 Hypothyroidism, unspecified (principal)
CPT/HCPCS: 36415; 84439; 84443

== ENCOUNTER 2024-12-20 08:32 | Outpatient (CLI) | payer MEDICARE, SELFPAY ==
--- NOTE | ~2024-12-20 | XR_ITS ---
EXAM: XR knee RT min 4V DATE: 12/20/2024 09:20 HISTORY: M17.11 - Unilateral primary osteoarthritis, right knee . COMPARISON: 11/24/2023; CT right lower extremity 12/14/2023. FINDINGS: Decreased mineralization. No fracture or dislocation. No lytic or blastic lesion. Severe m edial joint space narrowing. Loss of valgus alignment. Moderate tricompartmental osteophytosis. Small -volume joint fluid. No erosion or periosteal change. Soft tissues within normal limits. IMPRESSION: Osteopenia. Tricompartmental right knee osteoarthritis, severe in the medial compartment. Small right knee joint effusion. Reviewed, dictated and finalized at location K. IMPRESSION: Osteopenia. Tricompartmental right knee osteoarthritis, severe in t he medial compartment. Small right knee joint effusion.
--- OUTSIDE RECORDS SUMMARY | 2024-12-20 08:40 | XMS_ITS | Clinical Summary ---
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 Gender Identity Not on file Sexual Orientation Not on file Plan of Treatment Health Maintenance Due Date Last Done Comments Colorectal Cancer Screening Colonoscopy (10 Years) 1955 Hepatitis C 1974 DTaP, Tdap and Td Vaccines ( 1 - Tdap) 1975 Mammogram Screening 1996 Pneumococcal Vaccine: 50+ Years (1 of 1 - PCV) 2006 Zoster Vaccines (1 of 2) 2006 Dexa Scan (General) 2021 COVID-19 Vaccine (3 - 2023-2 5 season) 2024 07/24/2020, 06/26/2020 RSV Immunization or 60+ Years (1 - 1-dose 75+ series) 2031 Meningococcal B Vaccine Aged Out No l onger eligible based on patient's age to complete this topic Meningococcal Vaccine Aged Out No sarah bruce eligible based on patient's age to complete this topic RSV Immunizations Under 20 Months Aged Out No longer eligible b ased on patient's age to complete this topic
--- OUTSIDE RECORDS SUMMARY | 2024-12-20 08:40 | XMS_ITS | Data Portability ---
Author Organization [facility] Address [address] [place] [address] Care Team Providers Care Rumper Name Role Phone IVONE BLADE Primary Care Provider [phone] Assessment Encounter Date Assessment Date Assessment LastModified by Organization Details LastModified Time 07/27/2020 07/27/2020 Annual gynecological exam performed. Patient will come back in a year unless there are new symptoms. Not available 07/26/2020 17:37:50 04/25/2022 04/25/2022 keflex. rash only with PCN call if worsens WWE due. [email or web address] Not available 04/25/2022 11:19:58 05/16/2022 05/16/2022 culture done doxy and flagyl due to allergies sitz baths [email or web address] Not available 05/16/2022 12:12:02 06/24/2022 06/24/2022 will do longer course of abx, pt declines doxy and is allergic to sulfa next time pt instructed to not drain it, should come in to have packing placed with an I and D to help close the space so it doesn't keep recurring. [email or web address] Not available 06/25/2022 09:21:26 Plan of Treatment Reminders Order Date Submit Date Provider Last Modified By Organization Details Last Modified Time Details Appointments None recorded. Lab None recorded. Referral None recorded. Procedures None recorded. Surgeries None recorded. Imaging None recorded. Medication Orders cephalexin 500 mg capsule 2022 023 [facility] #[id number], [address], [place], [place], [id number], 3 17:09:19 doxycycline hyclate 100 mg tablet 2021 022 JOHN [facility] #30974, [address], [place], [place], [id number], 2 12:10:13 Flagyl 500 mg tablet 2021 022 [facility] #66306, [address], [place], [place], [id number], 3 10:02:56 cephalexin 500 mg capsule 2021 022 [facility] #80927, [address], [place], [place], [id number], 2 11:42:44 clindamycin HCl 300 mg capsule 2020 021 [facility] #59125, [address], [place], [place], [id number], 2 09:17:13 Diflucan 200 mg tablet 2020 021 [facility] #67232, [address] [facility], [place], [place], [id number], 2 09:17:24 Patient TargetsNo targets recorded. Patient InstructionsNo instructions recorded. Reason for Referral None Reported. 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 Order ing Locat ion: [place] [facility] Recei cy: 07/28 0911 First Scree n: Maritza arthur, [place] , [place] Speci men: Scree chava Pap - Image d, Cervi x STATE MENT OF ADEQU ACY: Satis facto ry for evalu ation Trans forma tion zone compo nent prese nt FINAL DIAGN OSIS: Negat maru for Squam ous Intra epith elial Lesio n Elect rupa meza elizabeth d by Maritza arthur, [place] , [place] on 021 at 10:03 AM ----- ----- ----- ----- ----- ----- ----- ----- ----- ----- ----- ----- ----- ----- ----- ----- ----- ----- - HPV RESUL TS: HPV mRNA E6/E7 : No HPV mRNA Detec anna NOTE: This high risk HPV mRNA assay detec ts fourt een high- risk HPV types (16, 18, 31, 33, 35, 39, 45, 51, 52, 56, 58, 59, 66, 68) witho ut diffe renti ation . CHART ABLE COMME NT: Note: This speci men was revie wed by a Cytot echno logis t and/o r Patho logis t (as indic ated in this repor t) after evalu ation using the Thinp rep Imagi ng Syste m. CLINI KRISTI INFOR MATIO N: Menst rual Statu s: LMP (if appli cable ): Clini kristi Histo ry/Pr eviou s Pap: Type of Neopl colt (if appli cable ): Other Histo ry: Hormo cheryl (if appli cable ): PAP EDUCA NIKOLAY L NOTE: The Pap Test is a scree chava test with an inher ent false negat maru rate. Liqui d-bas e sampl ing may decre ase, but will not elimi viki, false negat maru resul ts. A negat maru resul t does not precl ude the prese nce and/o r devel opmen t of disea se, since the prese nce of abnor mal cells in the sampl e depen ds on the locat ion of the lesio n and sampl ing techn ique. Katie nued regul ar scree chava is the best metho d of cance r preve ntion . If repor anna cytol ogic findi ng do not corre late with physi kristi and/o r histo rical findi ngs, furth er inves tigat ion is recom tate d, as clini yolie acevedo nted. Not Available [facility] (Lab) [address] [facility], [place], [address], 07/31/2020 11:05:59 05/16/20 22 05/16/2022 CULTU RE: AEROB IC/AN AEROB IC result report SEE RESULT S BELOW abnormal Test: Cultu re: Aerob ic/An aerob ic Speci men Sourc e: Vulva Speci men Type: Micro biolo gy Speci men Speci men Date: 05/16 12:16 PM Resul t Date: 05/20 9:42 AM Resul t Statu s: Edite d Resul t - FINAL Abnor mal: Yes Resul emilianog Lab: [facility] [address] [facility] [address] Tel: [phone] CULTU RE ----- ----- ----- --- Light Growt h Tami l Vagin al Brittney Cultu re sampl es colle cted from sites that are proxi mal to tami l anaer obic brittney , do not provi de usefu l infor matio n. The anaer obic porti on of this cultu re has been credi anna. STAIN ----- ----- ----- --- Few Gram posit maru cocci seen Few Gram posit maru rods seen Not Available [facility] (Lab) [address] [facility], [place], [address], 05/20/2022 10:44:31 Result Notes None recorded. Problems Name Problem SNOMED Code Status Onset Date Resolution Date Notes Provider Name and Address Organization Details Recorded Time Adult health examinat ion Completed 201211/08/2021 Routine Medical Exam;Marty rded Elsewhere : No Locati on: [facility] So urce: EHR Chron ic: N Practic e ID: [id number] Bill able Time: 08:30:00 AM Ayanna king [facility] 2 17:27:54 Speciali zed medical examinat ion Completed 201211/08/2021 Gynecolog ical Examinati on;Record ed Elsewhere : No Locati on: [facility] So urce: EHR Chron ic: N Practic e ID: [id number] Bill able Time: 08:30:00 AM Ayanna king [facility] 2 17:27:54 Screenin g for malignan t neoplasm of rectum Completed 201511/08/2021 Encounter for screening for malignant neoplasm of rectum;Pr actice ID: [id number] [facility] 2 17:27:54 Screenin g for malignan t neoplasm of cervix Completed 201511/08/2021 Encounter for screening for malignant neoplasm of cervix;Pr actice ID: [id number] Ay[facility] 2 17:27:54 Stool color abnormal [id number] Completed 201511/08/2021 Occult blood in stool;Rec orded Elsewhere : No Locati on: [facility] So urce: EHR Chron ic: N Practic e ID: [id number] Bill able Time: 06:00:00 PM [facility] 2 17:27:54 Genuine stress incontin ence 76703014 Completed 201611/08/2021 Stress incontine nce (female) (male);Pr actice ID: [id number] [facility] 2 17:27:[address] Concept Completed 201611/08/2021 Encntr for general adult medical exam w/o abnormal findings; Practice ID: [id number] [facility] 2 17:27:[address] Concept Completed 201611/08/2021 Encntr for brain surgeon exam (general) (routine) w/o abn findings; Practice ID: [id number] [facility] 2 17:27:54 Body mass index 30+ - obesity [id number] Completed 201711/08/2021 Body mass index (BMI) 34.0-34.9 , adult;Rec orded Elsewhere : No Locati on: [facility] So urce: EHR Chron ic: N Practic e ID: [id number] Bill able Time: 03:00:00 PM Ayanna king [facility] 2 17:27:54 Evaluati on finding [id number] Completed 201711/08/2021 Oth abn and inconclus maru findings on dx imaging of breast;Re corded Elsewhere : No Locati on: [facility] So urce: EHR Chron ic: N Practic e ID: 0001 Bill able Time: 03:00:00 PM Ayanna king [facility] 2 17:27:54 Problem Notes None recorded. Procedures Surgical History Date Name Laterality Status Provider Name and Address Organization Details Recorded Time 11/16/19 19 Date of Last Mammogram completed Milena [facility] 07/26/2020 17:38:18 09/13/19 17 Date of Last Pap Smear completed Milena [facility] 07/26/2020 17:38:03 05/25/19 14 arthroscopy completed Milena [facility] 07/26/2020 17:40:52 05/25/19 13 [facility] 07/26/2020 17:40:39 05/25/19 10 Colonoscopy completed Milena [facility] 07/26/2020 17:40:31 Imaging Results None recorded. Procedure Notes None recorded. Medical Equipment None Reported. Allergies Allergen ID Allergen Name Allergen Category Reaction Reaction Severity Criticality Documentation Date Start Date Code Code System Note Provider Name and Address Organization Details Recorded Time 59056 Product containin g penicilli n (product) medicatio n Not available Not available Not available 05/11/2020 61020 8001 SNOMED Comme nt: [facility]; Not Available [facility] 0 14:14:52 83584 Substance with sulfonami de structure and antibacte rial mechanism of action (substanc e) medicatio n Not available Not available Not available 05/11/2020 66194 8003 SNOMED Comme nt: [facility]; Not Available [facility] 0 14:14:52 Medications Name Sig Start Date Stop Date Status Note LastModified by Organization Details LastModified Time prednison e 10 mg tablet 04/25 completed Not Available Not Available Not Available clindamyc in HCl 300 mg capsule TAKE 1 CAPSULE BY MOUTH FOUR TIMES DAILY 04/25 completed Not Available Not Available Not Available ibuprofen 800 mg tablet TAKE 1 TABLET BY MOUTH EVERY 8 HOURS NEEDED FOR PAIN 04/25 completed Not Available Not Available Not Available metoprolo l succinate ER 50 mg tablet,ex tended release 24 hr 04/25 completed Not Available Not Available Not Available clarithro mycin 500 mg tablet TAKE 1 TABLET BY MOUTH EVERY 12 HOURS FOR 10 DAYS 05/16 completed Not Available Not Available Not Available lisinopri l 20 mg tablet TAKE 1 TABLET BY MOUTH DAILY 05/16 completed Not Available Not Available Not Available ondansetr on HCl 4 mg tablet TAKE 1 TABLET BY MOUTH EVERY 8 HOURS NEEDED FOR NAUSEA OR VOMITING active Not Available Not Available No t Available metronida zole 500 mg tablet TAKE 1 TABLET BY MOUTH TWICE DAILY FOR 7 DAYS 06/24 completed Not Available Not Available Not Available levothyro xine 75 mcg tablet active Not Available Not Available Not Available nystatin- triamcino lone 100,000 unit/gram -0.1 % topical ointment APPLY TOPICALL Y TO THE AFFECTED AREA TWICE DAILY 04/25 completed Not Available Not Available Not Available levothyro xine 100 mcg tablet active Not Available Not Available Not Available alprazola m 0.25 mg tablet TAKE 1 TABLET BY MOUTH THREE TIMES DAILY NEEDED 04/25 completed Not Available Not Available Not Available methocarb deloris 750 mg tablet TAKE 1 TABLET BY MOUTH TWICE DAILY NEEDED 04/25 completed Not Available Not Available Not Available Synthroid 25 mcg tablet take 1 tablet by oral route every day 04/25 completed Prescrib ed Elsewher e: Yes Loca tion: [facility] [address] odify By: [email or web address] Almanza ncounter DateTime : 10/01/19 14 09:45:00 AM Not Available Not Available Not Available levothyro xine 50 mcg tablet TAKE 1 TABLET BY MOUTH EVERY DAY IN THE MORNING ON AN EMPTY STOMACH 04/25 completed Not Available Not Available Not Available cephalexi n 500 mg capsule TAKE 1 CAPSULE BY MOUTH FOUR TIMES DAILY FOR 21 DAYS active Not Available Not Available No t Available Wellbutri n 75 mg tablet take 1 tablet by oral route 3 times every day active Prescrib ed Elsewher e: Yes Loca tion: [facility] [address] odify By: morelia Alvarezo unter DateTime : 08/27/19 13 04:00:52 PM Not Available Not Available Not Available metoprolo l tartrate 50 mg tablet TAKE 1 TABLET BY MOUTH TWICE DAILY 04/25 completed Not Available Not Available Not Available lisinopri l 20 mg-hydroc hlorothia zide 25 mg tablet TAKE 1 TABLET BY MOUTH EVERY DAY active Not Available Not Available No t Available codeine 10 mg-guaife nesin 100 mg/5 mL oral liquid TAKE 10 ML BY MOUTH EVERY 4 HOURS NEEDED 04/25 completed Not Available Not Available Not Available hydrochlo rothiazid e 25 mg tablet TAKE 1 TABLET BY MOUTH EVERY DAY IN THE MORNING active Not Available Not Available No t Available metoprolo l succinate ER 25 mg tablet,ex tended release 24 hr take 1 tablet by oral route every day active Prescrib ed Elsewher e: Yes Loca tion: [facility] [address] odify By: morelia burks Enco unter DateTime : 08/28/19 13 08:30:00 AM Not Available Not Available Not Available levofloxa param 500 mg tablet TAKE 1 TABLET BY MOUTH EVERY DAY FOR 7 DAYS 04/25 completed Not Available Not Available Not Available Diflucan 200 mg tablet Take 1 tablet on days 1, 4 & 7 for total of 3 doses. 04/25 completed Not Available Not Available Not Available doxycycli ne hyclate 100 mg tablet TAKE 1 TABLET BY MOUTH TWICE DAILY FOR 7 DAYS active Not Available Not Available No t Available bupropion HCl XL 150 mg 24 hr tablet, extended release TAKE 1 TABLET BY MOUTH EVERY MORNING active Not Available Not Available No t Available hydrochlo rothiazid e 12.5 mg tablet take 1 tablet by oral route every day 07/27 completed Prescrib ed Elsewher e: Yes Loca tion: [facility] [address] odify By: morelia morrison DateTime : 08/28/19 13 08:30:00 AM Not Available Not Available Not Available Zyrtec 10 mg capsule 04/25 completed Prescrib ed Elsewher e: Yes Loca tion: [facility] [address] odify By: [email or web address] z Encoun ter DateTime : 09/13/19 17 08:30:00 AM Not Available Not Available Not Available Alexi COVID-19 Ag Self Test kit 05/16 completed Not Available Not Available Not Available Vitals Date Recorded Body height Body mass index (BMI) Body weight Systolic And Diastolic Provider Name and Address Organization Details Last Updated DateTime 06/24/2022 167.64 cm 28.6 kg/m2 43952.85 g 104/67 mm[Hg] Nakia Davis [facility] 06/24/2022 16:50:58 Date Recorded Body height Body mass index (BMI) Body weight Systolic And Diastolic Provider Name and Address Organization Details Last Updated DateTime 07/27/2020 167.64 cm 35.2 kg/m2 63611.14 g 127/79 mm[Hg] Milena Gant [facility] 07/27/2020 09:54:50 Date Recorded Body weight Body mass index (BMI) Body height Systolic And Diastolic Provider Name and Address Organization Details Last Updated DateTime 04/25/2022 74316.81 g 29.4 kg/m2 167.64 cm 127/77 mm[Hg] [facility] 04/25/2022 10:53:48 Date Recorded Body height Body mass index (BMI) Body weight Systolic And Diastolic Systolic And Diastolic Provider Name and Address Organization Details Last Updated DateTime 05/16/2022 167.64 cm 29.5 kg/m2 54503.4 g 154/73 mm[Hg] 150/82 mm[Hg] [facility] 11:42:27 Social History Question Answer Notes LastModified by [email or web address] Details LastModified Time Tobacco Smoking Status Never Smoker [facility] 07/26/2020 17:40:21 What Is Your Level Of Caffeine Consumption? None Information not available 07/26/2020 Has Tobacco Cessation Counseling Been Provided? No Information not available 07/26/2020 Sex: Unknown Functional Status Question Answer Note LastModified by [email or web address] Details LastModified Time Do you use any illicit or recreational drugs? No Information not available 07/26/2020 Do you or have you ever used any other forms of tobacco or nicotine? No Information not available 07/26/2020 What is your level of alcohol consumption? None Information not available 07/26/2020 Mental Status None recorded. Family History Relationship Description Onset Age of this Age Resolved Age Notes LastModified by Organization Details LastModified Time Father Hypertensive disorder Not available 2020 17:39:07 Father Carcinoma in situ of gallbladder [email or web address] Not available 05/27 16:37:09 Father Carcinoma in situ of stomach [email or web address] Not available 2022 16:37:09 Brother Carcinoma in situ of colon [email or web address] Not available 2022 16:37:09 Brother Malignant neoplasm of skin [email or web address] Not available 2022 16:37:09 Mother Malignant neoplasm of skin Not available 2022 16:37:09 Sister Malignant neoplasm of skin [email or web address] Not available 2022 16:37:09 Notes:Brother: Cancer, skin, Cancer, colon Father: Gallbladder and Stomach Cancer, Hypertension Mother: Cancer, skin Sister: Cancer, skin Medical History Condition Response Hypertension Y High Cholesterol Y Depression/ depression Y Gynecological History Statement/Question Response STIs/STDs N Date of Last Pap Smear 09/12/2016 Sexual Problems? N Current Control Method None Date of Last Mammogram 11/15/2018 Desired Control Method None Obstetrics History GPAL:G 2 P 2 0 0 0 Type Value Full Term 2 Total 2 Past Encounters Encounter ID Performer Location Encounter Start Date Encounter Closed Date Diagnosis/Indication Diagnosis SNOMED-CT Code Diagnosis ICD10 Code Diagnosis Note [id number] Nita Gill , [facility] [address] [address] 07/27/2020 09:44:26 07/27/2020 12:36:58 Gynecologic examination 62307447 Z01.419 Take Calcium with Vitamin D 12-1500mg daily. Do monthly self breast exams. It is advised to get annual flu shot in the fall and she could obtain at [facility] or [facility] care clinic. If you haven't received the Tdap vaccine in the last 10 years you should obtain one as well. Have mammogram yearly, bone density every 2-3 years and colonoscop y every 5-10 years depending on findings and history. Engage in daily exercise of low impact aerobic exercise 45-60 minutes 4-5 times weekly. Avoid tobacco and illicit drugs as well as using moderation with alcohol intake less than 1-2 8 oz beverages daily. This lifestyle behavior pattern will lead to less health conditions and longer life span. If BMI greater than 25 weight watchers or dietary consult advised. Questions have been answered. Patient appears to understand instructio ns, but if you have any further questions call or respond to this email USPSTF recommends against screening for cervical cancer in women older than 65yo who have had adequate prior screening & are not otherwise at high risk for cervical cancer. Normal pap/hpv hx x 27yrs Mammo ordered colon UTD Dexa UTD pcp Cyst of vagina 60567250 N89.8 Small vaginal labial cyst present on exam lower left near opening but not in area of sedrick's gland. We agreed to short course of abx coupled with yeast prevention . RTO if no improvemen t. [id number] Nadya Lemus MD [facility] [address] [address] 04/25/2022 10:49:24 04/25/2022 11:48:30 Vulval cellulitis 675819980 N76.2 [id number] Nadya Lemus MD [facility] [address] [address] 05/16/2022 11:36:52 05/16/2022 12:36:53 Abscess of vulva 64960274 N76.4 [id number] Nadya Lemus MD [facility] [address] [address] 06/24/2022 16:36:54 06/26/2022 15:57:04 Abscess of vulva 57546654 N76.4 Health Concerns Section Related Observation LastModified by Organization Detai ls LastModified Time None Recorded Concern Status LastModified by Organization Details LastModified Time None Recorded Advance Directives Directive None Recorded Payers Insurance Date Sequence Insurance Name Policy Number Policy Ruff Covered Member ID Ruff Member ID Guarantor Name 11/11/2021 1 [place] [id number] Anirudh Castro [id number] Anirudh Castro 06/23/2022 1 [place] Anirudh Castro [id number] Anirudh Castro 04/25/2022 2 [employer] Anirudh Castro [id number] Anirudh Castro 06/26/2022 2 [place] [employer] - PLAN F (MEDICARE SUPPLEMENT) Anirudh Castro [id number] Anirudh Castro OBGyn Episode Ob Episode Information Episode Created Date Number of Fetuses Patient Bloodtype Patient rh Status Prepregnancy Weight lbs Domestic Partner Domestic Partner Phone Father Name Tank Tender Status 07/27/19 21 1 CLOSED Fetus Data First Name Last Name Admitted to NICU Weight (g) Sex Living Outcome Pediatric Complications Fetus ID Race Codes Race Delivery Type Full Term [id number] Vaginal Delivery Everette Calculation Initial Everette Date Initial Exam Date Initial Exam Provider Initial Ultrasound Date Last Menstrual Period Date Ultra Sound Weeks Gestation 0 Eighteen To Twenty Week Everette Update Ultra Sound Date Fundal Height At Umbil Quickening Date Ultra Sound Latest Weeks Gestation Final Everette Confirmed By Final Everette Confirmed Date Final Everette Date Ultra Sound Latest Days Gestation 0 0 Menstrual History Last Menstrual Date Menses Monthly On Bcp Conception Prior Menses Frequency Hcg Plus Date Menarche Onset Age Delivery Information Delivery Date Delivery Type Labor Anesthesia Weeks Gestation Incision Type Labor Labor Length Hrs Delivered By Post Complications Tubal Sterilization Discharge Date Comments 9 Discharge Information Feeding Method Contraceptive Method Maternal HG B and HCT Levels Ob Episode Information Episode Created Date Number of Fetuses Patient Bloodtype Patient rh Status Prepregnancy Weight lbs Domestic Partner Domestic Partner Phone Father Name Tank Tender Status 07/27/19 21 1 CLOSED Fetus Data First Name Last Name Admitted to NICU Weight (g) Sex Living Outcome Pediatric Complications Fetus ID Race Codes Race Delivery Type Full Term [id number] Vaginal Delivery Everette Calculation Initial Everette Date Initial Exam Date Initial Exam Provider Initial Ultrasound Date Last Menstrual Period Date Ultra Sound Weeks Gestation 0 Eighteen To Twenty Week Everette Update Ultra Sound Date Fundal Height At Umbil Quickening Date Ultra Sound Latest Weeks Gestation Final Everette Confirmed By Final Everette Confirmed Date Final Everette Date Ultra Sound Latest Days Gestation 0 0 Menstrual History Last Menstrual Date Menses Monthly On Bcp Conception Prior Menses Frequency Hcg Plus Date Menarche Onset Age Delivery Information Delivery Date Delivery Type Labor Anesthesia Weeks Gestation Incision Type Labor Labor Length Hrs Delivered By Post Complications Tubal Sterilization Discharge Date Comments 0 Discharge Information Feeding Method Contraceptive Method Maternal HG B and HCT Levels
--- OUTSIDE RECORDS SUMMARY | 2024-12-20 08:41 | XMS_ITS | Clinical Summary ---
Author Organization [facility] Address [address] [place] [address] Care Team Providers Care Configuration Manager Name Role Phone Mckinley Jordan MD Primary [...] 6 Tablets 15 Tablet 03/30/2024 3:45 PM DICER OPERATOR 4 Active clindamycin HCL (CLEOCIN) 300 mg [...] Encounters Date Type Department Care Team Description 12/16/2024 Chart Note [facility] Oncology Patient Navigation [address] [place] [address] Silvina Reyes, RN Nurse Navigation 12/15/2024 Orders Only [facility] Oncology and Hematology - [place] [address] [place] [address] Jacky Singh MD Encounter for antineoplastic chemotherapy (Primary Dx) 12/12/2024 Orders Only [facility] Oncology and Hematology - [place] [address] [place] [address] Jacky Singh MD Malignant neoplasm of lower-outer quadrant of left breast of female, estrogen receptor negative (CMS/HCC) 12/09/2024 Orders Only [facility] Oncology and Hematology [facility] [address] [place] [address] Jacky Singh MD 12/08/2024 8:30 AM CDT Office Visit [facility] Oncology and Hematology [facility] [address] [place] [address] Jacky Singh MD Malignant neoplasm of lower-outer quadrant of left breast of female, estrogen receptor negative (CMS/HCC) (Primary Dx) 12/07/2024 External Device Data STL ABSTRACTION Provider, Abstract 11/28/2024 Orders Only [facility] Oncology and Hematology [facility] [address] [place] [address] Jacky Singh MD Malignant neoplasm of lower-outer quadrant of left breast of female, estrogen receptor negative (CMS/HCC) 11/17/2024 Orders Only [facility] Oncology and Hematology - [place] [address] [place] [address] Jacky Singh MD 11/14/2024 Orders Only [facility] Oncology and Hematology [place] [address] [place] [address] Jacky Singh MD Malignant neoplasm of lower-outer quadrant of left breast of female, estrogen receptor negative (CMS/HCC) 11/09/2024 External Device Data STL ABSTRACTION Provider, Abstract 11/09/2024 Prep for Surgery [facility] Plastic Surgery at the [address] [place] [address] Nuris Partida RN Prophylactic antibiotic (Primary Dx) 10/31/2024 2:00 PM CDT Office Visit [facility] Plastic Surgery at the [facility] [address] [place] [address] Theodore Jackson MD Personal history of malignant neoplasm of breast (Primary Dx); S/P left mastectomy 10/31/2024 Orders Only [facility] Oncology and Hematology - [place] [address] [place] [address] Jacky Singh MD Malignant neoplasm of lower-outer quadrant of left breast of female, estrogen receptor negative (CMS/HCC) 10/26/2024 Chart Note [facility] Oncology Patient Navigation [address] [place] [address] Silvina Reyes, RN Nurse Navigation 10/25/2024 11:05 AM CDT - 10/25/2024 11:59 PM CDT Hospital Encounter [facility] Medicine and Therapy Services [facility] [address] [place] [address] Marissa Haider MD Carr, Caitlin D, Physical Therapist Discharge Disposition: Home or Self Care 10/24/2024 Orders Only [facility] Oncology and Hematology - [place] [address] [place] [address] Jacky Singh MD 10/21/2024 Orders Only [facility] Oncology and Hematology - [place] [address] [place] [address] Jacky Singh MD 10/20/2024 Orders Only [facility] Oncology and Hematology - [place] [address] [place] [address] Jacky Singh MD Encounter for antineoplastic chemotherapy (Primary Dx); Malignant neoplasm of lower-outer quadrant of left breast of female, estrogen receptor negative (CMS/HCC) 10/19/2024 3:30 PM CDT Office Visit [facility] Oncology and Hematology - [place] [address] [place] [address] Jacky Singh MD Malignant neoplasm of lower-outer quadrant of left breast of female, estrogen receptor negative (CMS/HCC) (Primary Dx) 10/17/2024 Orders Only [facility] Oncology and Hematology - [place] [address] [place] [address] Jacky Singh MD Malignant neoplasm of lower-outer quadrant of left breast of female, estrogen receptor negative (CMS/HCC) 10/12/2024 External Device Data STL ABSTRACTION Provider, Abstract 10/11/2024 External Device Data STL ABSTRACTION Provider, Abstract 10/05/2024 9:30 AM CDT Clinical Support [facility] Plastic Surgery at the [facility] [address] [place] [address] Postoperative follow-up (Primary Dx) 10/03/2024 Orders Only [facility] Oncology and Hematology - [place] [address] [place] [address] Jacky Singh MD Malignant neoplasm of lower-outer quadrant of left breast of female, estrogen receptor negative (CMS/HCC) 09/28/2024 9:30 AM CDT Clinical Support [facility] Plastic Surgery at the [facility] [address] [place] [address] Postoperative follow-up (Primary Dx) 09/23/2024 Orders Only [facility] Oncology and Hematology - [place] [address] [place] [address] Jacky Singh MD 09/23/2024 Chart Note [facility] Oncology Patient Navigation [address] [place] [address] Silvina Reyes, RN Nurse Navigation 09/22/2024 2:30 PM CDT Office Visit [facility] Oncology and Hematology - [place] [address] [place] [address] Jacky Singh MD Malignant neoplasm of lower-outer quadrant of left breast of female, estrogen receptor negative (CMS/HCC) (Primary Dx) 09/20/2024 1:00 PM CDT Clinical Support [facility] Plastic Surgery at the [facility] [address] [place] [address] Postoperative follow-up (Primary Dx) from Last 3 Months Family History Medical History Relation Name Comments Cancer Brother 1 Jn Pitts 2022 Large B cell lymphoma Colon Cancer Brother 1 Jn Pitts 2009 Cancer Brother 2 Chris Pitts 2022 lung can cer, brain cancer Lung Cancer Brother 2 Chris Pitts brain & lung Stroke Brother 2 Chris Pitts 2022 Cancer Father Manuel Pitts gallbladder Heart Disease Father Manuel Pitts valve replac ed Hypertension Father Manuel Pitts multiple sibl ings also Pancreatic Cancer Father Manuel Pitts Cancer Mother Chantale Skin cancer Blood Clots Sister 1 Preeti Hurd leg blood clot Lung Cancer Sister 1 Preeti Vickey Cancer Sister 2 Leydi Valentino lung cancer 202 4 Cancer Sister 3 Sally Leydortiz skin cancer Breast Cancer Neg Hx Ovarian Cancer Neg Hx Relation Name Status Comments Brother 1 Jn Pitts Brother 2 Chris Pitts Alive Father Manuel Pitts Mother Chantale Sister 1 Preeti Hurd Alive Sister 2 Leydi Valentino Sister 3 Sally Arroyo Social History Tobacco Use Types Packs/Day Years Used Date Smoking Tobacco: Never Smokeless Tobacco: Never Tobacco Cessation:Counseling Given: Not Answered Alcohol Use Standard Drinks/Week Comments Not Currently 3 (1 standard drink = 0.6 oz pur e alcohol) Comments No Sex and Gender Information Value Date Recorded Sex Assigned at Not on file Legal Sex Female 5:12 AM DICER OPERATOR Gender Identity Not on file Sexual Orientation Not on file Last Filed Vital Signs Vital Sign Reading Time Taken Comments Blood Pressure 137/74 12/08/2024 8:38 AM CDT Pulse 74 12/08/2024 8:38 AM CDT Temperature 36.9 C (98.4 F) 12/08/2024 8:38 AM CDT Respiratory Rate 15 12/08/2024 8:38 AM CDT Oxygen Saturation 98% 12/08/2024 8:38 AM CDT Inhaled Oxygen Concentration - - Weight 77.8 kg (171 lb 9.6 oz) 12/08/2024 8:38 A M CDT Height 157.5 cm (5' 2) 10/31/2024 1:48 PM CDT Body Mass Index 31.39 10/31/2024 1:48 PM CDT Plan of Treatment Upcoming Encounters Date Type Department Care Team (Late st Contact Info) Description 01/10/2025 12:00 PM CDT Appointment [facility] [address] [place] [address] [place] [address] [address] [place] [address] 01/10/2025 12:45 PM CDT Office Visit [facility] Breast Surgery [address] [address] [facility] [address] [place] [address] [place] [address] [facility] [address] [place] [phone] Lizett Antonio, ATTENDANCE CLERK [address] [facility] [address] [place] [address] 01/12/2025 11:42 AM CDT Hospital Encounter [facility] [address] [place] [address] Theodore Jackson MD [address] [id number] Hx of breast cancer 01/12/2025 11:42 AM CDT - 01/12/2025 1:26 PM CDT Surgery [facility] [address] [place] [address] Theodore Jackson MD [address] [address] BREAST MAMMARY IMPLANTS REMOVAL OR EXCHANGE 01/19/2025 9:30 AM CDT Office Visit [facility] Oncology and Hematology - [place] [address] [facility] [address] [place] [address] Jacky Singh MD [address] [facility] [address] [place] [address] 01/27/2025 8:15 AM CDT Office Visit [facility] Plastic Surgery at the [facility] [address] [facility] [address] [place] [address] Dasia Turner PA [address] [address] Scheduled Procedures Name Priority Associated Diagnoses Date/Ti me BREAST MAMMARY IMPLANTS REMOVAL OR EXCHANGE Hx of breast cancer S/P left mastectomy Disproportion between [place] breast and reconstructed breast 01/12/2025 11:42 AM CDT BREAST MASTOPEXY Hx of breast cancer S/P left mastectomy Disproportion between [place] breast and reconstructed breast 01/12/2025 11:42 AM CDT Health Maintenance Due Date Last Done Comments Pre-Diabetes and Diabetes Screening 1955 DTAP/TDAP/TD VACCINES (1 - Tdap) 1975 FIT-DNA Q 3 years 2001 FIT/FOBT Q 1 year 2001 Flex Sig/CT Colonography Q 5 years 2001 PNEUMOCOCCAL VACCINE 50+ YEA RS (1 of 1 - PCV) 2006 ZOSTER VACCINE (1 of 2) 2006 OSTEOPOROSIS SCREENING 2021 COVID-19 Vaccine (3 - 2023-2 5 season) 2024 07/24/2020, 06/26/2020 INFLUENZA VACCINE (#1) 2024 BREAST CANCER SCREENING 02/04/2025 02/05/20 24, 01/15/2024, 01/06/2023, Additional history exists COLORECTAL SCREENING 03/26/2030 03/26/2020, 03/26/2020, 09/07/2014, Additional history exists Colorectal Cancer Screening 03/26/2030 RSV VACCINE (60+ or ) (1 - 1-dose 75+ series) 2031 Medical Devices Implanted Type Area Fire And Explosion Investigator Device Identifier Shelf Expiration Date Model / Serial / Lot Birdcage Assembler Ligaclip Efficient Drivetrains Med [id number] - [id number] Implanted:Qty: 1 on 08/29/2024 by Marissa Haider MD at [facility] Clip Left: Breast [employer]- [employer] [id number] 05/24/2029 [id number] / / [id number] Birdcage Assembler Ligaclip Multi Med [facility]20 - [id number] Implanted:Qty: 1 on 08/29/2024 by Marissa Haider MD at [facility] Clip Left: Breast [employer] [id number] 10/22/2028 [id number] / / [id number] Natrelle Tissue Child Monitor With Suture Tabs Implanted:Qty: 1 on 08/29/2024 by Theodore Jackson MD at [facility] Mammary Left: Breast ALLERGAN- MEDICAL [id number] 11/17/2028 [id number] 4-T / [id number] / [id number] Description:REQ [id number] Port Powerport Clearvue 8fr Mri [id number] - [id number] Implanted:Qty: 1 on 03/30/2024 by Marissa Haider MD at [facility] Port Right: Chest BARD KAROLINA VASC 08/22/2025 [id number] / / [id number] Allograft Dermis Cortiva [id number] 1mm [id number] - [id number] Implanted:Qty: 1 on 08/29/2024 by Theodore Jackson MD at [facility] Tissue Left: Breast RTI BIOLOGICX 08/26/2025 [id number] / [id number] / [id number] Left Knee Replacement And Teeth Impants Procedures Procedure Name Priority Date/Time Associated Diagnosis Comments BASIC METABOLIC PANEL Routine 12/08/2024 3:33 PM CDT COMPREHENSIVE METABOLIC PANEL Routine 12/08/2024 3:26 PM CDT CANCER ANTIGEN 15-3 Routine 12/08/2024 2 :12 PM CDT BASIC METABOLIC PANEL Routine 11/17/2024 3:27 PM CDT CBC WITH DIFFERENTIAL Routine 11/17/2024 3:24 PM CDT ECHO COMPLETE Routine 10/24/2024 12:55 PM CDT CBC WITH DIFFERENTIAL Routine 10/18/2024 3:39 PM CDT COMPREHENSIVE METABOLIC PANEL Routine 10/18/2024 3:17 PM CDT CBC WITH DIFFERENTIAL Routine 09/22/2024 12:20 PM CDT BASIC METABOLIC PANEL Routine 09/22/2024 9:55 AM CDT MAMMO DIAG UNI LEFT 3D TAYLOR W OR WO CAD Routine 02/05/2024 8:21 AM CDT Abnormal mammogram from Last 3 Months or Most Recently Relevant to Health Maintenance Results * BASIC METABOLIC PANEL (12/08/2024 3:33 PM CDT) Only the most recent of3 resultswithin the time period is included. Blood Result Thony Singh MD CHEMISTRY ORDERABLES Final Resu lt * COMPREHENSIVE METABOLIC PANEL (12/08/2024 3:26 PM CDT) Only the most recent of2 resultswithin the time period is included. Blood Result Thony Singh MD CHEMISTRY ORDERABLES Final Resu lt * CANCER ANTIGEN 15-3 (12/08/2024 2:12 PM CDT) Blood Result Thony Singh MD CHEMISTRY ORDERABLES Final Resu lt * CBC WITH DIFFERENTIAL (11/17/2024 3:24 PM CDT) Only the most recent of3 resultswithin the time period is included. Blood Result Thony Singh MD HEMATOLOGY ORDERABLES Final Res ult * ECHO COMPLETE (10/24/2024 12:55 PM CDT) Result Thony Singh MD ECHO ORDERABLES Final Result * (ABNORMAL) MAMMO 3D TAYLOR DIAGNOSTIC UNI [...] Highly suggestive of malignancy. DICTATION LOCATION: Location 3 - [facility] Narrative 02/05/2024 8:59 AM CDT EXAM: LEFT DIGITAL [...] Highly suggestive of malignancy. DICTATION LOCATION: Location - [facility] Mckinley Jordan MD MAMMO ORDERABLES Final Resu lt from Last 3 Months or Most Recently Relevant to Health Maintenance Insurance MEDICARE PART A AND B [facility] MEDICARE PART A AND B [facility] SUPP RX nPicker Medicare Part D RX [place] [employer] (INTERNAL) [facility] Internal Plans Advance Directives For more information, please contact: [phone] * Full Code (Latest Code Status on File) Date Activated Date Inactivated Comments 08/29/2024 11:35 AM 08/30/2024 3:11 PM * Full Code Date Activated Date Inactivated Comments 08/29/2024 8:13 AM 08/29/2024 11:35 AM Care Teams Configuration Manager Relationship Specialty Start Date End Date Mckinley Jordan MD [address] [place] [phone] PCP - General Family Practice 11/13/18
--- OUTSIDE RECORDS SUMMARY | 2024-12-20 08:41 | XMS_ITS | Referral Summary ---
Author Organization [facility] Address [address] [address] Care Team Providers Care Retention Specialist Name Role Phone Mckinley Jordan MD Primary Care Provider [phone] Allergies Active Allergy Reactions Criticality Noted Date Comments Penicillins Rash Medium 03/26/2020 Sulfa (Sulfonamide Antibiotics) Hives Medium 11/22 Medications buPROPion XL (WELLBUTRIN XL) 150 mg 24 hr tablet TK 1 T PO QAM 0 Active lisinopril-hydr oCHLOROthiazide (ZESTORETIC) 20-25 mg per tablet TK 1 T PO QD 0 Active levothyroxine sodium (TIROSINT) 50 mcg capsule Take 50 mcg by mouth hoisting laborer before breakfast Active metoprolol tartrate (LOPRESSOR) 50 [...] on file Legal Sex Female 3:03 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 Gender Identity Not on file Sexual Orientation [...] Associated Diagnosis Comments COLONOSCOPY 03/26/2020 2:18 PM DEBUG TECHNICIAN from Last 3 Months or Most Recently Relevant to Health Maintenance Results * COLONOSCOPY (03/26/2020 2:18 PM DEBUG TECHNICIAN) Anatomical Region Laterality Modality Other Narrative Procedure Note Jose Zambrano MD PhD - 03/26/2020 2:18 PM CST ENDOSCOPY LAB Patient Name: Anirudh Castro Procedure Date: 03/26/2020 2:18 PM Date of : 1955 Admit Type: Outpatient Age: 65 Gender: Female Attending MD: Jose Zambrano MD,PHD Room: [facility] ENDOSCOPY ROOM 03 Note Status: Finalized [...] Thescope was passed under direct vision. The [id number] introduced through the anus and advanced to theterminal ileum. The colonoscopy was performed withoutdifficulty. The patient tolerated the procedure well. The qualityof the bowel preparation was excellent. The quality of the bowel preparation was evaluated using the BBPS ([place] Bowel Preparation Scale) with scores of: Right [...] hours - Please call the Nurse Coordinator: [phone]. After hours, evening, nights, weekends and holidays - Please call the hospital yardage tufting machine operator at and ask for the GI fellow environmental engineering technician. Attending Participation: I personally performed the entire procedure. Electronically signed by Jose Zambrano MD. Jose Zambrano MD, PHD 03/26/2020 2:37:05 PM Number of Addenda: 0 Note Initiated On: 03/26/2020 2:18 PM Jose Zambrano MD PhD ENDOSCOPY PROCEDURES Edit ed Result - Final from Last 3 Months or Most Recently Relevant to Health Maintenance Insurance [facility] [employer] [facility] MEDICARE [employer] [place] MEDICARE MEDICARE [facility] Advance Directives For more information, please contact: [phone] * Full Code (Latest Code Status on File) Date Activated Date Inactivated Comments 03/26/2020 12:45 PM 03/26/2020 7:38 PM Care Teams Retention Specialist Relationship Specialty Start Date End Date Mckinley Jordan MD [address] [place] [address] GIL SANCHEZ [address] PCP - General Family Medicine 9/23/23
--- OUTSIDE RECORDS SUMMARY | 2024-12-20 08:41 | XMS_ITS | Clinical Summary ---
Author Organization [facility] Address [address] [address] Care Team Providers Care Beader Name Role Phone Mckinley Jordan MD Primary Care Provider [phone] Allergies Active Allergy Reactions Criticality Noted Date Comments Penicillins Rash Medium 03/26/2020 Sulfa (Sulfonamide Antibiotics) Hives Medium 11/22 Medications buPROPion XL (WELLBUTRIN XL) 150 mg 24 hr tablet TK 1 T PO QAM 0 Active lisinopril-hydr oCHLOROthiazide (ZESTORETIC) 20-25 mg per tablet TK 1 T PO QD 0 Active levothyroxine sodium (TIROSINT) 50 mcg capsule Take 50 mcg by mouth ad trafficker before breakfast Active metoprolol tartrate (LOPRESSOR) 50 [...] on file Legal Sex Female 3:03 AM BASKETBALL REFEREE Gender Identity Not on file Sexual Orientation [...] 5 season) 2024 07/24/2020, 06/26/2020 Influenza Vaccine (#1) 2025 2, 03/05/2021, 06/15/2020, Additional history exists Colon Cancer Screening-Colonoscopy 03/26/20302019 Zoster Vaccine Completed 02/02/2021, 11/30/2020 Procedures Procedure Name Priority Date/Time Associated Diagnosis Comments COLONOSCOPY 03/26/2020 2:18 PM BASKETBALL REFEREE from Last 3 Months or Most Recently Relevant to Health Maintenance Results * COLONOSCOPY (03/26/2020 2:18 PM BASKETBALL REFEREE) Anatomical Region Laterality Modality Other Narrative Procedure Note Jose Zambrano MD PhD - 03/26/2020 2:18 PM CST ENDOSCOPY LAB Patient Name: Anirudh Castro Procedure Date: 03/26/2020 2:18 PM Date of : 1955 Admit Type: Outpatient Age: 65 Gender: Female Attending MD: Jose Zambrano MD,PHD Room: [facility] ENDOSCOPY ROOM 03 Note Status: Finalized [...] Thescope was passed under direct vision. The [id number] introduced through the anus and advanced to theterminal ileum. The colonoscopy was performed withoutdifficulty. The patient tolerated the procedure well. The qualityof the bowel preparation was excellent. The quality of the bowel preparation was evaluated using the BBPS ([place] Bowel Preparation Scale) with scores of: Right [...] hours - Please call the Nurse Coordinator: [phone]. After hours, evening, nights, weekends and holidays - Please call the hospital dragline operator at and ask for the GI fellow carbonation equipment operator. Attending Participation: I personally performed the entire procedure. Electronically signed by Jose Zambrano MD. Jose Zambrano MD, PHD 03/26/2020 2:37:05 PM Number of Addenda: 0 Note Initiated On: 03/26/2020 2:18 PM Jose Zambrano MD PhD ENDOSCOPY PROCEDURES Edit ed Result - Final from Last 3 Months or Most Recently Relevant to Health Maintenance Insurance [facility] ACCESS CHOICE MEDICARE [facility] MEDICARE MEDICARE [facility] [employer] Advance Directives For more information, please contact: [phone] * Full Code (Latest Code Status on File) Date Activated Date Inactivated Comments 03/26/2020 12:45 PM 03/26/2020 7:38 PM Care Teams Beader Relationship Specialty Start Date End Date Mckinley Jordan MD [address] [place] [address] PCP - General Family Medicine 02/14/23
--- OUTSIDE RECORDS SUMMARY | 2024-12-20 08:41 | XMS_ITS ---
Author Organization [facility] Address [address] [place] [address] Care Team Providers Care Fish Protector Name Role Phone Mckinley Jordan MD Primary Care Provider [phone] Active Problems Patient Care Coordination No te [...] 03/01/2024:Stage IIB(cT2, cN1(f), cM0, G3, ER- , IA-, HER2+) - Signed by Marissa Haider MD [...]
== END 2024-12-20 08:33 | disposition home or self-care (01) ==
PROVIDERS: PCP Family Medicine; Visit Provider Orthopaedic Surgery
DX: M17.11 Unilateral primary osteoarthritis, right knee (principal); M85.861 Other specified disorders of bone density and structure, right lower leg
CPT/HCPCS: 73564

== ENCOUNTER 2025-01-24 13:21 | Outpatient (CLI) | payer MEDICARE, SELFPAY ==
--- OUTSIDE RECORDS SUMMARY | 2014-11-03 08:15 | XMS_ITS | Continuity of Care Document ---
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 Name Role Phone EuniceNatalie Duff Unavailable Unavailab le Allergies, Adverse Reactions, Alerts Substance Reaction Status Criticality Sulfa (Sulfonamide Antibiotics) Rash Active No Information sulfanilamide Active No Information trimethoprim Active No Information sulfamethoxazole Active No Informat ion Medications Medication Instructions Dosage Effective Dates (start - stop) Status Comments Zantac 150 mg tablet - Active Zyrtec 10 mg tablet - Active LEVOTHYROXINE SODIUM (unknown strength) Not Available - Active metoprolol succinate ER 25 mg tablet,extended release 24 hr take 1 tablet by oral route every day 25 MG - Active hydrochlorothiazide 12.5 mg capsule take 1 capsule by oral route every day 12.5 MG - Active bupropion HCl 75 mg tablet take 1 tablet by oral route 3 times every day 75 MG - Active naproxen 250 mg tablet take 1 tablet by oral route 2 times every day with food as needed 250 MG - Active HYDROCHLOROTHIAZIDE (unknown strength) Not Available - Active METOPROLOL TARTRATE (unknown strength) Not Available - Active WELLBUTRIN (unknown strength) Not Available - Active Procedures Procedure Date POSTOP FOLLOW-UP VISIT OFFICE/OUTPATIENT VISIT EST OFFICE/OUTPATIENT VISIT EST OFFICE/OUTPATIENT VISIT EST MU Reporting OFFICE/OUTPATIENT VISIT EST MU Reporting OFFICE/OUTPATIENT VISIT NEW Advance Directives Directive Yes / No Effective Date File Name No Information Encounters Encounter Description Practice Location Reason(s) For Visit Diagnoses Date Provider Providers Copied on Encounter [facility], [address], [place], [address], [place] tel:[phone] [facility] Osteoarthriti s of right kneeTorn meniscus 5 Jose Estrada. [address] [facility] [address], [place], [place], [address]. tel:[phone] OFFICE/OUTPA TIENT VISIT EST [facility], [address] [facility] [address], [place], [address], [place] tel:[phone] [facility] Torn meniscusOsteo arthritis of right knee 5 Diane Pineda. [address] [facility], [place], [place], [address]. tel:[phone] OFFICE/OUTPA TIENT VISIT EST [facility], [address] [facility] [address], [place], [address], [place] tel:[phone] [facility] Pain, knee/lower legOsteoarthr itis of right kneeTorn meniscus Aug- 0201 5 Diane Pineda. [address] [facility], [place], [place], [address]. tel:[phone] OFFICE/OUTPA TIENT VISIT EST [facility], [address] [facility] [address], [place], [address], [place] tel:[phone] [facility] Left shoulder (chief complaint) Obesity 4 Quinton Zepeda. [address], [place], [place], [address]. tel:[phone] Referring Provider: [facility], [address], [place], [address]. tel:[phone] [facility], [address] [facility] [address] [facility] [address], [place], [address], [place] tel:[phone] [facility] No Information 4 Sushant Jaimes. [address], [place], [place], [address]. tel:[phone] OFFICE/OUTPA TIENT VISIT EST [facility], [address], [place], [address], [place] tel:[phone] [facility] ObesityDietar y surveillance and counseling 3 Shayy Hernadez. [address] [facility], [place], [place], [address]. tel:[phone] Referring Provider: [facility], [address], [place], [address]. tel:[phone] OFFICE/OUTPA TIENT VISIT NEW [facility], [address] [facility] [address], [place], [address], [place] tel:[phone] [facility] left foot pain (chief complaint) Hypertension, UnspecifiedUn specified site of foot sprain 3 Jaquan Gonzáles. [address], [place], [place], [address]. tel:[phone] Family History Family Member Type Diagnosis Age At Onset Problem (finding) Family history of Heart disease Brother Problem (finding) hypertension Father Problem (finding) hypertension Problem (finding) Family history of arthr itis Problem (finding) Family history of ortho pedic problems Brother Problem (finding) cancer of colon Payers Payer name Insurance type Covered alliance party ID Authoriza tion(s) [facility] Choice OT [id number] Social History Type Description Quantity Date Captured Comments Alcohol Use Details Unknown Caffeine Use Details Unknown Tobacco Use Status No Information Smoking Status Never smoker Sex Female Chief Complaint And Reason For Visit No Information Reason For Referral Reason For Referral No Information Plan Of Treatment Date Type Action Status Goal Lifestyle education regardin g diet completed Referral Ordered: RADEX KNE 3 VIEWS RT ordered Referral Ordered: MRI ANY JT LXTR C-MATRL RT Appointment date/timeframe: 09/26/2014 ordered Referral Ordered: RADEX JACQUI COMPL MINIMUM 2 VIEWS LT ordered Referral Ordered: RADEX SPI CRV 2/3 VIEWS ordered History Of Present Illness Encounter Date Complaint History Of Prese nt Illness Left shoulder Functional Status Date Functional Assessmen t No Information Instructions Date Instruction Additional Infor mation Rest, ice and elevate. Related t o Torn meniscus Discussed treatment options Rela anna to Torn meniscus Giving encouragement to exercise Related to Obesity, unspecified Lifestyle education regarding di et Related to Obesity, unspecified Take new medication as prescribe d Activity as tolerated Dietary counseling Related to Di etary surveillance counseling Do not stop meds whe n symptoms resolve Dietary counseling Related to Di etary surveillance counseling Reviewed medications Take medications with food Take new medication as prescribe d Weight bearing statu s: weight bear as tolerated Physical activity counseling Rel ated to Dietary surveillance counseling Wear brace as instructed Assessments Type Assessment Date assessment Osteoarthritis of right knee Oct assessment Torn meniscus Patient Care Teams Name Effective Dates (start - stop) Status Members No Information
--- NOTE | 2025-01-24 | ECHO_ITS ---
Patient Info Name: Anirudh Castro Age: 69 years : 1955 Gender: Female Ht: 66 in Wt: 165 lbs BSA: 1.88 m2 BP: 142 / 95 mmHg Technical Quality: Fair, TDS due to recent silicone breast augmentation Exam Date: 01/24/2025 2:05 PM Patient Status: O Admit Date: 01/24/2025 Exam Type: CA echo doppler color flow Complete two-dimensional, color flow and Doppler transthoracic echocardiogram is performed. Merchant Banker: Destini Iniguez Attending Provider: Jacky Singh MD Summary 1. Complete two-dimensional, color flow and Doppler transthoracic echocardiogram is performed. 2. Left ventricular chamber dimension is normal. 3. Left ventricular systolic function is normal, estimated at 60-65. 4. There is mild concentric increased left ventricular wall thickness. 5. The left ventricular diastolic function is grade I diastolic dysfunction. 6. E/e' 8 is minimally elevated. 7. Left atrial chamber dimension is moderately enlarged. 8. There is mild aortic valve sclerosis. 9. There is mild mitral valve regurgitation. 10. There is mild tricuspid valve regurgitation. 11. No pulmonary hypertension, estimated pulmonary arterial systolic pressure is 26 mmHg. Left Ventricle E/e' 8 is minimally elevated. Left ventricular chamber dimension is normal. Left ventricular systolic function is normal, estimated at 60-65. There is mild concentric increased left ventricular wall thickness. The left ventricular diastolic function is grade I diastolic dysfunction. Right Ventricle Right ventricular chamber dimension is normal. Right ventricular systolic function is normal and with normal TAPSE 2.0 cm. Left Atria Left atrial chamber dimension is moderately enlarged. Right Atria Right atrial chamber dimension is normal. Aortic Valve The aortic valve is trileaflet. There is mild aortic valve sclerosis. There is no aortic valve stenosis. There is no aortic valve regurgitation. Pulmonic Valve There is no pulmonic regurgitation. Mitral Valve There is no mitral valve stenosis. There is mild mitral valve regurgitation. Tricuspid Valve There is mild tricuspid valve regurgitation. No pulmonary hypertension, estimated pulmonary arterial systolic pressure is 26 mmHg. Pericardium/Pleural There is no pericardial effusion. Inferior Vena Cava Normal inferior vena cava with >50% collapse upon inspiration consistent with normal right atrial pressure, 5 mmHg. Aorta The aortic root size at the sinus of Valsalva is normal. Left Ventricular Outflow Tract Name Value Normal LVOT 2D LVOT Diameter 1.8 cm LVOT Doppler LVOT Peak Velocity 73 cm/s LVOT Peak Gradient 2 mmHg LVOT Mean Gradient 1 mmHg LVOT VTI 16 cm LVOT VTI/AV VTI Ratio 0.7 LVOT Stroke Volume 42 ml LVOT CO 7.7 l/min LVOT CI 4.1 l/min/m2 Pulmonic Valve Name Value Normal PV Doppler PV Peak Velocity 81 cm/s PV Peak Gradient 3 mmHg Mitral Valve Name Value Normal MV Diastolic Function MV E Peak Velocity 74 cm/s MV A Peak Velocity 78 cm/s MV E/A 0.9 MV Decel Time (PW) 168 ms MV Annular TDI MV E/e' (Septal) 8.4 MV E/e' (Lateral) 7.9 MV E/e' (Average) 8.2 Tricuspid Valve Name Value Normal TV Regurgitation Doppler TR Peak Velocity 229 cm/s TR Peak Gradient 21 mmHg Estimated PAP/RSVP RA Pressure 5 mmHg <=5 PA Systolic Pressure 26 mmHg <36 RV Systolic Pressure 26 mmHg <36 TV Annular TDI TV Lateral Nahomy s' Velocity 15.4 cm/s >=9.5 Aorta Name Value Normal Ascending Aorta Ao Root Diameter (MM) 3.3 cm Ao Root Diam Index (MM) 1.8 cm/m2 Aortic Valve Name Value Normal AV Doppler AV Peak Velocity 99 cm/s AV Peak Gradient 4 mmHg AV Mean Gradient 3 mmHg AV VTI 23 cm AV Area (Cont Eq VTI) 1.8 cm2 >=3.0 AV Area (Cont Eq Kieran) 1.9 cm2 AV DI (Kieran) 0.73 AV Regurgitation 2D LVOT Area 2.6 cm2 Ventricles Name Value Normal LV Dimensions 2D/MM IVS Diastolic Thickness (2D) 1.2 cm 0.6-1.0 LVID Diastole (2D) 4.0 cm 3.8-5.2 LVIW Diastolic Thickness (2D) 1.0 cm 0.6-0.9 LVID Systole (2D) 3.0 cm 2.2-3.5 LVOT Diameter 1.8 cm LV Mass (2D Cubed) 144.20 g 67.00-162.00 LV Mass Index (2D Cubed) 77 g/m2 43-95 Relative Wall Thickness (2D) 0.50 <=0.42 LV Fractional Shortening/Ejection Fraction 2D/MM LV Fractional Shortening (2D) 25 % 27-45 LV EF (2D Teichholz) 50 % LV Diastolic Volume (4C MOD) 74 ml LV EF (4C MOD) 65 % LV Diastolic Volume (2C MOD) 97 ml LV EF (2C MOD) 68 % LV Diastolic Volume (BP MOD) 89 ml 46-106 LV Diastolic Volume Index (BP MOD) 47 ml/m2 29-61 LV Systolic Volume (BP MOD) 29 ml 14-42 LV Systolic Volume Index (BP MOD) 15 ml/m2 8-24 LV EF (BP MOD) 68 % 54-74 LV Diastolic Length (4C) 6.7 cm LV Systolic Length (4C) 5.2 cm LV Stroke Volume (4C MOD) 48 ml Atria Name Value Normal LA Dimensions LA Dimension (MM) 4.3 cm 2.7-3.8 LA Volume (4C A-L) 47 ml LA Volume (BP A-L) 38 ml RA Dimensions RA Systolic Major [place] Length (4C) 4.7 cm 2.2-2.8 RA Area (4C) 15.0 cm2 <=18.0 Report Signatures
--- OUTSIDE RECORDS SUMMARY | 2025-01-24 13:33 | XMS_ITS | Clinical Summary ---
Author Organization [facility] Address [address] [address] Care Team Providers Care Director Of Retail Marketing Name Role Phone Mckinley Jordan MD Primary Care Provider [phone] Allergies Active Allergy Reactions Criticality Noted Date Comments Penicillins Rash Medium 03/26/2020 Sulfa (Sulfonamide Antibiotics) Hives Medium 11/22 Medications buPROPion XL (WELLBUTRIN XL) 150 mg 24 hr tablet TK 1 T PO QAM 0 Active lisinopril-hydr oCHLOROthiazide (ZESTORETIC) 20-25 mg per tablet TK 1 T PO QD 0 Active levothyroxine sodium (TIROSINT) 50 mcg capsule Take 50 mcg by mouth mortgage sales manager before breakfast Active metoprolol tartrate (LOPRESSOR) 50 [...] on file Legal 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 Gender Identity Not on file Sexual Orientation [...] Associated Diagnosis Comments COLONOSCOPY 03/26/2020 2:18 PM HALFWAY HOUSE COUNSELOR from Last 3 Months or Most Recently Relevant to Health Maintenance Results * COLONOSCOPY (03/26/2020 2:18 PM HALFWAY HOUSE COUNSELOR) Anatomical Region Laterality Modality Other Narrative Procedure Note Jose Zambrano MD PhD - 03/26/2020 2:18 PM [facility] ENDOSCOPY LAB Patient Name: Anirudh Castro Procedure Date: 03/26/2020 2:18 PM Date of : 1955 Admit Type: Outpatient Age: 65 Gender: Female Attending MD: Jose Zambrano MD,PHD Room: [facility] ENDOSCOPY ROOM 03 Note Status: Finalized [...] Thescope was passed under direct vision. The [id number] introduced through the anus and advanced to theterminal ileum. The colonoscopy was performed withoutdifficulty. The patient tolerated the procedure well. The qualityof the bowel preparation was excellent. The quality of the bowel preparation was evaluated using the BBPS ([place] Bowel Preparation Scale) with scores of: Right [...] hours - Please call the Nurse Coordinator: [phone]. After hours, evening, nights, weekends and holidays - Please call the hospital hose operator at and ask for the GI fellow refrigeration unit repairer. Attending Participation: I personally performed the entire procedure. Electronically signed by Jose Zambrano MD. Jose Zambrano MD, PHD 03/26/2020 2:37:05 PM Number of Addenda: 0 Note Initiated On: 03/26/2020 2:18 PM Jose Zambrano MD PhD ENDOSCOPY PROCEDURES Edit ed Result - Final from Last 3 Months or Most Recently Relevant to Health Maintenance Insurance [facility] ACCESS CHOICE MEDICARE [facility] MEDICARE MEDICARE [employer] Advance Directives For more information, please contact: [phone] * Full Code (Latest Code Status on File) Date Activated Date Inactivated Comments 03/26/2020 12:45 PM 03/26/2020 7:38 PM Care Teams Director Of Retail Marketing Relationship Specialty Start Date End Date Mckinley Jordan MD [address] [place] [id number] PCP - General Family Medicine 02/14/23
--- OUTSIDE RECORDS SUMMARY | 2025-01-24 13:33 | XMS_ITS | Clinical Summary ---
Author Organization [employer] [place] Address [address] [place] [address] Care Team Providers Care Bill Clerk Name Role Phone Mckinley Jordan MD Primary Care Provider Allergies Active Allergy Reactions Criticality Noted Date Comments Cephalexin Rash Low 08/05/2024 Penicillins Rash,Unknown Medium 03/26/2020 Sulfa (Sulfonamide Antibiotics) Rash,Hives High 11/22 Medications lisinopril-hy droCHLOROthia zide (ZESTORETIC) 20-25 mg tablet Take 1 Tablet by mouth daily. Active tolterodine (DETROL LA) 4 mg Extended Release 24 hour capsule 12/02/19 24 Active levothyroxine 25 mcg tablet Take 25 mcg by mouth. Active docusate sodium (COLACE) 100 mg capsule Take 100 mg by mouth. Active clindamycin phosphate (CLEOCIN T) 1 % Gel APPLY TOPICALLY TO THE AFFECTED AREA DAILY 02/09/20 24 Active cetirizine (ZyrTEC) 10 mg tablet Take 10 mg by mouth. Active buPROPion HCL (WELLBUTRIN XL) 150 mg Extended Release 24 hour tablet Take 1 Tablet by mouth daily in the morning. Active acetaminophen (TYLENOL) 325 mg tablet Take 650 mg by mouth. Active CYANOCOBALAMI N, VITAMIN B-12, ORAL Take by mouth. Acti ve carbonyl iron (FEOSOL) 45 mg Tablet Take 45 mg by mouth daily. Active Saccharomyces boulardii (FLORASTOR) 250 mg Capsule Take by mouth. Activ e ondansetron (ZOFRAN ODT) 8 mg Tablet, Rapid Dissolve Dissolve 1 tablet on top of tongue then swallow with saliva every 8 hours as needed for nausea or vomiting 30 Tablet 1 03/29/20 24 Active dexAMETHasone (DECADRON) 4 mg tablet Take 2 Tablets (8 mg) by mouth 2 times daily day before treatment, day of treatment and day after treatment with each cycle. 12 Tablet 4 03/29/20 24 Active clindamycin HCL (CLEOCIN) 300 mg Capsule TAKE 1 CAPSULE BY MOUTH THREE TIMES DAILY FOR 7 DAYS DIRECTED 03/30/20 24 Active diphenoxylate -atropine 2.5 mg-0.025 mg tablet Take 1 Tablet by mouth 4 times daily as needed for Diarrhea/Loose Stools. 40 Tablet 1 04/28/20 24 Active terconazole (TERAZOL) 0.4% vaginal cream INSERT 1 APPLICATORFUL VAGINALLY EVERY DAY AT BEDTIME FOR 7 DAYS 04/15/20 24 Active prochlorperaz ine maleate (COMPAZINE) 10 mg tablet TAKE 1 TABLET(10 MG) BY MOUTH EVERY 6 HOURS NEEDED FOR NAUSEA OR VOMITING 30 Tablet 05/13/20 24 Active pantoprazole (PROTONIX) 40 mg Tablet, Delayed Release (E.C.) Take 1 Tablet (40 mg) by mouth daily. 30 Tablet 2 08/19/19 25 Active methylPREDNIS olone (MEDROL DOSPACK) 4 mg Tablets, Dose Pack Use as directed 21 Tablet 09/23/19 25 Active ferrous sulfate 325 mg (65 mg iron) tablet Take 325 mg by mouth daily. Active lisinopril-hy droCHLOROthia zide (ZESTORETIC) 20-25 mg tablet 1 tab(s), PO, Daily 05/20/20 24 Active HYDROcodone-a cetaminophen (NORCO) 5-325 mg tabletIndicat ions:HER2-pos itive carcinoma of left breast (CMS/HCC),Mal ignant neoplasm of lower-outer quadrant of left breast of female, estrogen receptor negative (CMS/HCC) Take 1 Tablet by mouth every 4 hours as needed for Pain, Break-Through or Pain, Severe. Max Daily Amount: 6 Tablets 25 Tablet 5 3:07 PM CDT 01/13/20 25 Active naloxone (NARCAN) 4 mg/spray [place], Non-Aerosol EMERGENCY USE ONLY: Administer 1 spray (4 mg) in one nostril one time. May repeat in alternating nostrils every 2-3 min until responsive or EMS arrives. 2 Each 3 01/13/20 25 Active ibuprofen (MOTRIN) 800 mg tablet ibuprofen 800 mg tablet TAKE 1 TABLET BY MOUTH EVERY 8 HOURS NEEDED FOR PAIN 2024 Discontinued doxycycline hyclate (VIBRAMYCIN) 100 mg capsule Take 1 Capsule by mouth 2 times daily. 01/11/20 24 2024 Discontinued lidocaine-kathy locaine (EMLA) 2.5-2.5 % CreamIndicati ons:HER2-posi tive carcinoma of left breast (CMS/HCC),Mal ignant neoplasm of lower-outer quadrant of left breast of female, estrogen receptor negative (CMS/HCC) Apply to affected area see administration instructions. Apply to port site 1 hour prior to needle sticks- cover with saran wrap 30 Gram 3 03/21/20 24 2024 Discontinued HYDROcodone-a cetaminophen (NORCO) 5-325 mg tabletIndicat ions:HER2-pos itive carcinoma of left breast (CMS/HCC),Mal ignant neoplasm of lower-outer quadrant of left breast of female, estrogen receptor negative (CMS/HCC) Take 1 Tablet by mouth every 4 hours as needed for Pain, Break-Through or Pain, Severe. 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 5 Tablet 05/19/20 24 2024 Discontinued oxyCODONE (ROXICODONE) 5 mg tabletIndicat ions:Malignan t neoplasm of lower-outer quadrant of left breast of female, estrogen receptor negative (CMS/HCC) Take 1 Tablet (5 mg) by mouth every 4 hours as needed for Pain. Max Daily Amount: 30 mg 20 Tablet 5 1:03 PM CDT 08/31/192024 Discontinued doxycycline hyclate (VIBRAMYCIN) 100 mg capsule Take 1 Capsule (100 mg) by mouth 2 times daily for 7 days. 14 Capsule 5 3:07 PM CDT 01/13/20 25 2024 Active Problems Patient Care Coordination No te Formatting of this note migh t be different from the original. I call your ce;Primary Care: Mckinley Jordan MD Referring Provider: No referring provider defined for this encounter. Other: Dr. Marissa Haider MD Problem Noted Date Diagnosed Date Personal history of malignant neoplasm of breast 01/12/2025 S/P left mastectomy 09/01/2024 Malignant neoplasm of lower- outer quadrant of left breast of female, estrogen receptor negative 03/01/2024 Cancer Staging:Clinical stage from 03/01/2024:Stage IIB(cT2, cN1(f), cM0, G3, ER- , MI-, HER2+) - Signed by Marissa Haider MD on 05/03/2024 Encounters Date Type Department Care Team Description 01/23/2025 Orders Only [facility] Oncology and Hematology [facility] [address] [place] [address] Jacky Singh MD Malignant neoplasm of lower-outer quadrant of left breast of female, estrogen receptor negative (CMS/HCC) 01/19/2025 9:30 AM CDT Office Visit [facility] Oncology and Hematology [facility] [address] [place] [address] Jacky Singh MD Malignant neoplasm of lower-outer quadrant of left breast of female, estrogen receptor negative (CMS/HCC) (Primary Dx) 01/19/2025 Orders Only [facility] Oncology and [facility] [address] [place] [address] Jacky Singh MD 01/12/2025 12:18 PM CDT Anesthesia Event [facility] [address] [place] [address] Dariela Blancas MD Malatkar, Rushali, AA-C 01/12/2025 11:22 AM CDT - 01/12/2025 1:06 PM CDT Surgery [facility] [address] [place] [address] Theodore Jackson MD BREAST MAMMARY IMPLANTS REMOVAL OR EXCHANGE 01/12/2025 9:16 AM CDT - 01/12/2025 3:54 PM CDT Hospital Encounter [facility] [address] [place] [address] Theodore Jackson MD Personal history of malignant neoplasm of breast Discharge Disposition: Home or Self Care 01/10/2025 12:45 PM CDT Office Visit [facility] Breast Surgery [address] [address] [facility] [address] [place] [address] Marissa Haider MD McCarthy, Lindsey M, MAKE UP OPERATOR History of left breast cancer (Primary Dx); S/P left mastectomy; HER2-positive carcinoma of left breast (CMS/HCC) 01/10/2025 11:56 AM CDT - 01/10/2025 11:59 PM CDT Hospital Encounter [facility] [address] [place] [phone] Marissa Haider MD Discharge Disposition: Home or Self Care 01/09/2025 Orders Only [facility] Oncology and Hematology - [place] [address] [place] [address] Jacky Singh MD Malignant neoplasm of lower-outer quadrant of left breast of female, estrogen receptor negative (CMS/HCC) 01/03/2025 External Device Data STL ABSTRACTION Provider, Abstract 12/29/2024 Orders Only [facility] Oncology and Hematology - [place] [address] [place] [address] Jacky Singh MD 12/26/2024 Orders Only [facility] Oncology and Hematology - [place] [address] [place] [address] Jacky Singh MD Malignant neoplasm of lower-outer quadrant of left breast of female, estrogen receptor negative (CMS/HCC) 12/16/2024 Chart Note [facility] Oncology Patient Navigation [address] [place] [address] Silvina Reyes, RN Nurse Navigation 12/15/2024 Orders Only [facility] Oncology and Hematology - [place] [address] [place] [address] Jacky Singh MD Encounter for antineoplastic chemotherapy (Primary Dx) 12/12/2024 Orders Only [facility] Oncology and Hematology - [place] [address] [place] [address] Jacky Singh MD Malignant neoplasm of lower-outer quadrant of left breast of female, estrogen receptor negative (CMS/HCC) 12/09/2024 Orders Only [facility] Oncology and Hematology [facility] [address] [place] [address] Jacky Singh MD 12/08/2024 8:30 AM CDT Office Visit [facility] Oncology and Hematology [facility] [address] [place] [address] Jacky Singh MD Malignant neoplasm of lower-outer quadrant of left breast of female, estrogen receptor negative (CMS/HCC) (Primary Dx) 12/07/2024 External Device Data STL ABSTRACTION Provider, Abstract 11/28/2024 Orders Only [facility] Oncology and Hematology [facility] [address] [place] [address] Jacky Singh MD Malignant neoplasm of lower-outer quadrant of left breast of female, estrogen receptor negative (CMS/HCC) 11/17/2024 Orders Only [facility] Oncology and Hematology - [place] [address] [place] [address] [phone] Jacky Singh MD 11/14/2024 Orders Only [facility] Oncology and Hematology [facility] [address] [place] [address] Jacky Singh MD Malignant neoplasm of lower-outer quadrant of left breast of female, estrogen receptor negative (CMS/HCC) 11/09/2024 External Device Data STL ABSTRACTION Provider, Abstract 11/09/2024 Prep for Surgery [facility] Plastic Surgery at the [facility] [address] [facility] [address] [place] [address] Nuris Partida RN Prophylactic antibiotic (Primary Dx) 10/31/2024 2:00 PM CDT Office Visit [facility] Plastic Surgery at the [facility] [address] [facility] [address] [place] [address] Theodore Jackson MD Personal history of malignant neoplasm of breast (Primary Dx); S/P left mastectomy 10/31/2024 Orders Only [facility] Oncology and Hematology [facility] [address] [place] [address] Jacky Singh MD Malignant neoplasm of lower-outer quadrant of left breast of female, estrogen receptor negative (CMS/HCC) 10/26/2024 Chart Note [facility] Oncology Patient Navigation [address] [place] [address] Silvina Reyes, PAULO Nurse Navigation 10/25/2024 11:05 AM CDT - 10/25/2024 11:59 PM CDT Hospital Encounter [facility] Medicine and Therapy Services [facility] [address] [place] [address] Marissa Haider MD Carr, Caitlin D, Physical Therapist Discharge Disposition: Home or Self Care 10/24/2024 Orders Only [facility] Oncology [facility] [address] [place] [address] Jacky Singh MD from Last 3 Months Family History Medical History Relation Name Comments Cancer Brother 1 Min Blackwood 2022 Large B cell lymphoma Colon Cancer Brother 1 Min Blackwood 2008 Cancer Brother 2 Chris Blackwood 2022 lung can cer, brain cancer Lung Cancer Brother 2 Chris Blackwood brain & lung Stroke Brother 2 Chris Blackwood 2022 Cancer - Other Brother 3 min colon, large B cell lymphoma Cancer - Other Brother 4 chris lung & brain Cancer Father lacey blackwood gallbladder Heart Disease Father lacey blackwood valve replac ed Hypertension Father lacey blackwood multiple sibl ings also Pancreatic Cancer Father lacey blackwood Cancer Mother thor blackwood Skin cancer Cancer - Other Mother thor merced skin Blood Clots Sister 1 Preeti Vickey leg blood clot Lung Cancer Sister 1 Preeti Vickey Cancer Sister 2 Leydi Valentino lung cancer 202 4 Cancer - Other Sister 2 Leydi Valentino lung Cancer Sister 3 Blanca Arroyo skin cancer Cancer - Other Sister 4 blanca blackwood skin Breast Cancer Neg Hx Ovarian Cancer Neg Hx Relation Name Status Comments Brother 1 Min Blackwood Brother 2 Chris Blackwood Alive Brother 3 min Randolph Brother 4 chris Randolph Father lacey blackwood Alive Mother thor blackwood Alive Sister 1 Preeti Hurd Alive Sister 2 Leydi Valentino Sister 3 Blanca Ungeren Sister 4 blanca blackwood Alive Social History Tobacco Use Types Packs/Day Years Used Date Smoking Tobacco: Never Smokeless Tobacco: Never Tobacco Cessation:Counseling Given: Not Answered Alcohol Use Standard Drinks/Week Comments Not Currently 3 (1 standard drink = 0.6 oz pur e alcohol) Feeling Safe Answer Date Recorded Are you in a relationship wi th someone who hurts you emotionally and/or physically? 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 Gender Identity Not on file Sexual Orientation Not on file Last Filed Vital Signs Vital Sign Reading Time Taken Comments Blood Pressure 114/72 01/19/2025 9:28 AM CDT Pulse 80 01/19/2025 9:28 AM CDT Temperature 36.2 C (97.2 F) 01/19/2025 9:28 AM CDT Respiratory Rate 12 01/19/2025 9:28 AM CDT Oxygen Saturation 98% 01/19/2025 9:28 AM CDT Inhaled Oxygen Concentration - - Weight 72.9 kg (160 lb 12.8 oz) 01/19/2025 9:28 AM CDT Height 167.6 cm (5' 6) 01/12/2025 9:39 AM CDT Body Mass Index 25.95 01/12/2025 9:39 AM CDT Plan of Treatment Upcoming Encounters Date Type Department Care Team (Late st Contact Info) Description 01/27/2025 8:15 AM CDT Office Visit [facility] Plastic Surgery at the [facility] [address] [place] [address] Dasia Otto PA [address] [facility] [address] [place] [address] 09/18/2025 9:45 AM CDT Office Visit [facility] Oncology and Hematology - [place] [address] [facility] [address] [place] [address] Jacky Singh MD [address] [facility] [address] [place] [address] 01/18/2026 12:30 PM CDT Appointment [facility] [address] [address] [place] [address] Lizett Antonio, [facility] [address] [facility] [address] [place] [address] 01/18/2026 1:30 PM CDT Office Visit [facility] Breast Surgery [address] [address] [facility] [address] [place] [address] Lizett Antonio, MAKE UP OPERATOR [address] [facility] [address] [place] [address] [place] [address] [facility] [address] [place] [address] Health Maintenance Due Date Last Done Comments Pre-Diabetes and Diabetes Screening 1955 DTAP/TDAP/TD VACCINES (1 - Tdap) 1975 FIT-DNA Q 3 years 2001 FIT/FOBT Q 1 year 2001 Flex Sig/CT Colonography Q 5 years 2001 PNEUMOCOCCAL VACCINE 50+ YEA RS (1 of 1 - PCV) 2006 OSTEOPOROSIS SCREENING 2021 COVID-19 Vaccine (3 - 2023-2 5 season) 2024 07/24/2020, 06/26/2020 INFLUENZA VACCINE (#1) 2024 2, 03/05/2021, 06/15/2020, Additional history exists BREAST CANCER SCREENING 01/10/2026 01/11/20 25, 02/05/2024, 01/15/2024, Additional history exists COLORECTAL SCREENING 03/26/2030 03/26/2020, 03/26/2020, 09/07/2014, Additional history exists Colorectal Cancer Screening 03/26/2030 RSV VACCINE (60+ or ) (1 - 1-dose 75+ series) 2031 ZOSTER VACCINE Completed 02/02/2021, 11/30/2020 Medical Devices Implanted Type Area Machine Grainer Device Identifier Shelf Expiration Date Model / Serial / Lot Simplex Printer Installer Ligaclip O2 [facility] [place] [facility] - [id number] Implanted:Qty: 1 on 08/29/2024 by Marissa Haider MD at [facility] Clip Left: Breast [employer] [id number] 05/24/2029 [id number] / / [id number] Simplex Printer Installer Ligaclip O2 [employer] [facility] [place] - [id number] Implanted:Qty: 1 on 08/29/2024 by Marissa Haider MD at [facility] Clip Left: Breast [employer] [id number] 10/22/2028 MSM20 / / [id number] Imp Breast Inspira Ssf 605ml f-605 - [id number] Implanted:Qty: 1 on 01/12/2025 by Theodore Jackson MD at [facility] Medicine Mammary Left: Breast [employer] [id number] 06/12/2029 [id number]-605 / [id number] / Port Powerport Clearvue 8fr Mri [id number] - [id number] Implanted:Qty: 1 on 03/30/2024 by Marissa Haider MD at [facility] Services [facility] Port Right: Chest BARD KAROLINA VASC 08/22/2025 [id number] / / [id number] Allograft Dermis Cortiva [id number] 1mm [id number] - [id number] Implanted:Qty: 1 on 08/29/2024 by Theodore Jackson MD at [facility] Tissue Left: Breast RTI [employer] 08/26/2025 [id number] / [id number] / [id number] Left Knee Replacement And Teeth Impants Explanted Type Area Machine Grainer Device Identifier Shelf Expiration Date Model / Serial / Lot Merary Tissue Terrazzo Worker With Suture Tabs Implanted:Qty: 1 on 08/29/2024 by Theodore Jackson MD at [facility] Explanted:Qty: 1 on 01/12/2025 by Theodore Jackson MD at [facility] Mammary Left: Breast [employer]ERGAN- [employer]ICAL [id number] 11/17/2028 [id number]-FV-1 4-T / [id number] / [id number] Description:REQ [id number] Procedures Procedure Name Priority Date/Time Associated Diagnosis Comments IRON, TIBC, AND PERCENT SATURATION Routine 01/19/2025 2:54 PM CDT BASIC METABOLIC PANEL Routine 01/19/2025 12:51 PM CDT CBC WITH AUTODIFFERENTIAL Routine 01/19/2025 11:57 AM CDT MI ANES INSERT SUPRAGLOTTIC AIRWAY Routine 01/12/2025 12:25 PM CDT MI MASTOPEXY 01/12/2025 11:22 AM CDT Hx of breast cancer S/P left mastectomy Disproportion between [place] breast and reconstructed breast MI REPLACEMENT TISSUE SPIRAL TUBE WINDER W/PERMANENT IMPLANT 01/12/2025 11:22 AM CDT Hx of breast cancer S/P left mastectomy Disproportion between [place] breast and reconstructed breast POC GLUCOSE Routine 01/12/2025 9:42 AM CDT MAMMO DIAG UNI RIGHT 3D TAYLOR W OR WO CAD Routine 01/10/2025 12:19 PM CDT S/P left mastectomy Malignant neoplasm of lower-outer quadrant of left breast of female, estrogen receptor negative (CMS/HCC) HER2-positive carcinoma of left breast (CMS/HCC) BASIC METABOLIC PANEL Routine 12/29/2024 12:50 PM CDT CBC WITH AUTODIFFERENTIAL Routine 12/29/2024 12:48 PM CDT BASIC METABOLIC PANEL Routine 12/08/2024 3:33 PM CDT COMPREHENSIVE METABOLIC PANEL Routine 12/08/2024 3:26 PM CDT CANCER ANTIGEN 15-3 Routine 12/08/2024 2 :12 PM CDT BASIC METABOLIC PANEL Routine 11/17/2024 3:27 PM CDT CBC WITH DIFFERENTIAL Routine 11/17/2024 3:24 PM CDT ECHO COMPLETE Routine 10/24/2024 12:55 PM CDT from Last 3 Months Results * IRON, TIBC, AND PERCENT SATURATION (01/19/2025 2:54 PM CDT) Blood us Jacky Singh MD CHEMISTRY ORDERABLES Final Resu lt * BASIC METABOLIC PANEL (01/19/2025 12:51 PM CDT) Only the most recent of4 resultswithin the time period is included. Blood us Jacky Singh MD CHEMISTRY ORDERABLES Final Resu lt * CBC WITH AUTODIFFERENTIAL (01/19/2025 11:57 AM CDT) Only the most recent of2 resultswithin the time period is included. 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 MAINTENANCE TECHNICIAN/CAA Authorized by: Dariela Blancas MD Performed by: Malatkar, Rushali, AA-C Indications and Patient Condition: Indications for Airway Management: Anesthesia Sedation Level: general anesthesia Preoxygenated: yes Patient Position: Sniffing Mask Difficulty Assessment: 0 - not attempted Plan to extubate at end of case: Yes Final Airway Details: Final Airway Type: Supraglottic airway Final Supraglottic Airway: LMA Lubricant used: Yes LMA size: 3 Tube secured with: Tape Placement Verified by: auscultation, end tidal CO2 and chest rise Number of Attempts at Approach: 1 Additional Procedure Information: atraumatic and dentition unchanged us Dariela Blancas MD PROCEDURE/MINOR SURGICAL ORDE RABLES Final Result * POC GLUCOSE (01/12/2025 9:42 AM CDT) GLUCOSE POC 91 74 - 99 mg/dL 01/12/2025 9:42 AM CDT [facility] SPECIMEN SOURCE, GLUCOSE POC Whole Blood 01/12/2025 9:42 AM CDT [facility] CARE COMMENT, GLU POC Alerted Nurse/KENIA/D r 01/12/2025 9:42 AM CD[address] [facility] Blood, whole 01/12/2025 9:42 AM CDT 01/12/2025 9:46 AM CDT us Theodore Jackson MD POINT OF CARE TESTING Fi nal Result [facility] CLIA# [id number] [address] [place] [address] * MAMMO 3D TAYLOR DIAGNOSTIC UNI RT 3D W OR WO CAD (01/10/2025 12:19 PM CDT) Anatomical Region Laterality Modality Breast Right Mammography 01/10/2025 12:1 9 PM CDT Impressions 01/10/2025 12:37 PM CDT IMPRESSION: No mammographic evidence of malignancy in the right breast. OVERALL FINAL ASSESSMENT: BI-RADS CATEGORY 1: Negative. RECOMMENDATION: Annual right mammography. DICTATION LOCATION: [facility] Narrative 01/10/2025 12:37 PM CDT RIGHT DIAGNOSTIC DIGITAL MAMMOGRAM WITH TOMOSYNTHESIS AND CAD DATE: 01/10/2025 12:19 PM HISTORY: 69-year-old woman with recent left breast cancer status post left mastectomy and chemotherapy with plans for left breast reconstruction. She presents for annual right breast mammogram. TECHNIQUE: Diagnostic mammograms of the right breast(s) were performed on a digital system. 2D and 3D acquisitions were obtained. CAD was utilized. COMPARISON: 01/15/2024 and additional prior studies dating back to 2018. BREAST COMPOSITION: There are scattered areas of fibroglandular density. FINDINGS: There is no new suspicious mass, suspicious microcalcifications or architectural distortion in the right breast. Partially imaged right chest port catheter. Marissa Haider MD MAMMO ORDERABLES Final R esult * COMPREHENSIVE METABOLIC PANEL (12/08/2024 3:26 PM CDT) Blood us Jacky Singh MD CHEMISTRY ORDERABLES Final Resu lt * CANCER ANTIGEN 15-3 (12/08/2024 2:12 PM CDT) Blood us Jacky Singh MD CHEMISTRY ORDERABLES Final Resu lt * CBC WITH DIFFERENTIAL (11/17/2024 3:24 PM CDT) Blood us Jacky Singh MD HEMATOLOGY ORDERABLES Final Res ult * ECHO COMPLETE (10/24/2024 12:55 PM CDT) us Jacky Singh MD ECHO ORDERABLES Final Result from Last 3 Months Insurance MEDICARE PART A AND B [facility] SUPP MEDICARE PART [facility] AND B [facility] Part D RX [place] [employer] (INTERNAL) [facility] Advance Directives For more information, please contact: [phone] * Full Code (Latest Code Status on File) Date Activated Date Inactivated Comments 08/29/2024 11:35 AM 08/30/2024 3:11 PM * Full Code Date Activated Date Inactivated Comments 08/29/2024 8:13 AM 08/29/2024 11:35 AM Care Teams Bill Clerk Relationship Specialty Start Date End Date Mckinley Jordan MD [address] [place] [phone] PCP - General Family Practice 11/13/18
--- OUTSIDE RECORDS SUMMARY | 2025-01-24 13:33 | XMS_ITS | Encounter Summary ---
Author Organization [facility] JASE Joy 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 Gender Identity Not on file Sexual Orientation Not on file documented as of this encounter Plan of Treatment Upcoming Encounters Date Type Department Care Team (Late st Contact Info) Description 01/27/2025 8:15 AM CDT Office Visit [facility] Plastic Surgery at the [facility] [address] [address] [place] [phone] Dasia Otto PA [address] [facility] [address] [place], [place] [phone] 09/18/2025 9:45 AM CDT Office Visit [facility] Oncology and Hematology - [place] [address] [facility] [address] [place] [address] Jacky Singh MD [address] [facility] [address] [place] [address] 01/18/2026 12:30 PM CDT Appointment [facility] Dario [address] [address] [place] [phone] Lizett Antonio, [facility] [address] [facility] [address] [place] [phone] 01/18/2026 1:30 PM CDT Office Visit [facility] Breast Surgery Dario Jeanette [address] [facility] [address] [place] [phone] Lizett Antonio, [employer] [address] [facility] [address] [place] [phone] [place] [address] [facility] [address] [place] [phone] documented as of this encounter Procedures Procedure Name Priority Date/Time Associated Diagnosis Comments IRON, TIBC, AND PERCENT SATURATION Routine 01/19/2025 2:54 PM CDT BASIC METABOLIC PANEL Routine 01/19/2025 12:51 PM CDT CBC WITH AUTODIFFERENTIAL Routine 2024 11:57 AM CDT documented in this encounter Results * IRON, TIBC, AND PERCENT SATURATION (01/19/2025 2:54 PM CDT) Blood us Jacky Singh MD CHEMISTRY ORDERABLES Final Resu lt * BASIC METABOLIC PANEL (01/19/2025 12:51 PM CDT) Blood us Jacky Singh MD CHEMISTRY ORDERABLES Final Resu lt * CBC WITH AUTODIFFERENTIAL (01/19/2025 11:57 AM CDT) Blood Result Thony Singh MD HEMATOLOGY ORDERABLES Final Res ult documented in this encounter Visit Diagnoses Not on filedocumented in this encounter Care Teams Digital Asset Manager Relationship Specialty Start Date End Date Mckinley Jordan MD [address] [place] [phone] PCP - General Family Practice 11/13/18 documented as of this encounter
--- OUTSIDE RECORDS SUMMARY | 2025-01-24 13:33 | XMS_ITS ---
Author Organization [facility] Address [address] [place] [address] Care Team Providers Care Dried Fruit Washer Name Role Phone Mckinley Jordan MD Primary Care Provider Active Problems Patient Care Coordination No te [...] 03/01/2024:Stage IIB(cT2, cN1(f), cM0, G3, ER- , [place]-, HER2+) - Signed by Marissa Haider MD [...]
--- OUTSIDE RECORDS SUMMARY | 2025-01-24 13:33 | XMS_ITS | Encounter Summary ---
Author Organization [facility] [employer] [facility] Address [address] [place] [address] Care Team Providers Care Gluer And Slicer Hand Name Role Phone Mckinley Jordan MD Primary Care Provider [phone]- [phone] Encounter Details Date Type Department Care Team (Late st Contact Info) Description 01/23/2025 Orders Only [facility] Oncology and Hematology - [place] [address] [facility] [address] [place] [address] Jacky Singh MD [address] [facility] [address] [place] [address] Malignant neoplasm of lower-outer quadrant of left breast of female, estrogen receptor negative (CMS/HCC) Social History Tobacco Use Types Packs/Day Years [...] on file 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 Gender Identity Not on file Sexual Orientation Not on file documented as of this encounter Plan of Treatment Upcoming Encounters Date Type Department Care Team (Late st Contact Info) Description 01/27/2025 8:15 AM CDT Office Visit [facility] Plastic Surgery at the [facility] [address] [facility] [address] [place] [address] Dasia Otto PA [address] [facility] [address] [place], [place] [phone] 09/18/2025 9:45 AM CDT Office Visit [facility] Oncology and Hematology - [place] [address] [facility] [address] [place] [address] Jacky Singh MD [address] [facility] [address] [place] [address] 01/18/2026 12:30 PM CDT Appointment [facility] D[address] [address] [place] [phone] Lizett Antonio, [facility] [address] [facility] [address] [place] [phone] 01/18/2026 1:30 PM CDT Office Visit [facility] Breast Surgery Dario Reid [address] [facility] [address] [place] [phone] Lizett Antonio, [facility] [address] [facility] [address] [place] [address] [place] [address] [facility] [address] [place] [address] documented as of this encounter Visit Diagnoses Diagnosis Malignant neoplasm of lower-outer quadrant of left breast of female, estrogen receptor negative (CMS/HCC) documented in this encounter Care Teams Gluer And Slicer Hand Relationship Specialty Start Date End Date Mckinley Jordan MD [address] [place] [phone] PCP - General Family Practice 11/13/18 documented as of this encounter
--- OUTSIDE RECORDS SUMMARY | 2025-01-24 13:33 | XMS_ITS | Clinical Summary ---
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
== END 2025-01-24 13:22 | disposition home or self-care (01) ==
PROVIDERS: PCP Family Medicine; Visit Provider Internal Medicine Hematology & Oncology
DX: Z51.11 Encounter for antineoplastic chemotherapy (principal); I34.0 Nonrheumatic mitral (valve) insufficiency; I36.1 Nonrheumatic tricuspid (valve) insufficiency
CPT/HCPCS: 93306